=== PATIENT | male | born 1950 | race Caucasian/White ===

== ENCOUNTER → 2017-06-30 | Outpatient (CLI) | payer OTHER | LOC: CIMAGING 09:23 | PROVIDERS: ATTEND Nurse Practitioner | DX: R91.1 Solitary pulmonary nodule (principal); K44.9 Diaphragmatic hernia without obstruction or gangrene; E11.9 Type 2 diabetes mellitus without complications; E78.2 Mixed hyperlipidemia | CPT/HCPCS: 71250-PO ==

== ENCOUNTER 2018-01-26 17:32 | Inpatient (IN) | payer OTHER ==
--- NOTE | 2018-01-26 17:59 | CPEKG ---
Heart Rate: 71 RR Interval: 845 QRSD Interval: 170 QT Interval: 488 QTC Interval: 531 QRS [place]: -120 T Wave [place]: 234 EKG Severity - ABNORMAL ECG - EKG Impression: ATRIAL FIBRILLATION EKG Impression: RIGHT BUNDLE BRANCH BLOCK Electronically Signed By: Richard Espino 26-Jan-2018 18:19:00
[2018-01-26] MEDS ORDERED: FUROSEMIDE 40 MG/4 ML VIAL IVP ONE (18:13)
--- NOTE | 2018-01-26 18:18 | EDPHY ---
H & P Stated Complaint: sob Time Seen by Provider: 01/26/18 17:57 HPI/ROS: CHIEF COMPLAINT: Shortness of breath HISTORY OF PRESENT ILLNESS: The patient is a 67-year-old man who was recently admitted at [facility] for newly discovered atrial fibrillation and CHF and pulmonary hypertension. He was discharged 3 days ago now on Eliquis, amiodarone , Lasix, metoprolol and potassium. The patient states that his breathing has gotten progressively worse since discharged. Here in the room he was 89% on room air. He does wear oxygen at night but not during the day. He denies pain. He has mild leg swelling bilaterally. He has been faithful in taking his knee medications. No fevers. No cough. No history of COPD. He has an appointment with Dr. Henderson on . REVIEW OF SYSTEMS: Constitutional: denies: chills, fever, recent illness, recent injury EENTM: denies: blurred vision, double vision, nose congestion Respiratory: See HPI Cardiac: denies: chest pain, irregular heart rate, lightheadedness, palpitations Gastrointestinal/Abdominal: denies: abdominal pain, diarrhea, nausea, vomiting, blood streaked stools Genitourinary: denies: dysuria, frequency, hematuria, pain Musculoskeletal: denies: joint pain, muscle pain Skin: denies: lesions, rash, jaundice, bruising Neurological: denies: headache, numbness, paresthesia, tingling, dizziness, weakness Hematologic/Lymphatic: denies: blood clots, easy bleeding, easy bruising Immunologic/allergic: denies: HIV/AIDS, transplant EXAM: GENERAL: Well-appearing, obese and in no acute distress. HEAD: Atraumatic, normocephalic. EYES: Pupils equal round and reactive to light, extraocular movements intact, sclera anicteric, conjunctiva are normal. ENT: TMs normal, nares patent, oropharynx clear without exudates. Moist mucous membranes. NECK: Normal range of motion, supple without lymphadenopathy or JVD. LUNGS: Distant Breath sounds but clear to auscultation bilaterally and equal. No wheezes rales or rhonchi. HEART: Regular rate and rhythm without murmurs, rubs or gallops. ABDOMEN: Soft, nontender, normoactive bowel sounds. No guarding, no rebound. No masses appreciated. BACK: No CVA tenderness, no spinal tenderness, step-offs or deformities EXTREMITIES: Normal range of motion, no pitting or edema. No clubbing or cyanosis. NEUROLOGICAL: Cranial nerves II through XII grossly intact. Normal speech, normal gait. 5/5 strength, normal movement in all extremities, normal sensation PSYCH: Normal mood, normal affect. SKIN: Warm, dry, normal turgor, no visible rashes or lesions. Source: Patient Exam Limitations: No limitations - Personal History Current Tetanus/Diphtheria Vaccine: Yes Current Tetanus Diphtheria and Acellular Pertussis (TDAP): Yes - Medical/Surgical History Hx Asthma: No Hx Chronic Respiratory Disease: No Hx Diabetes: No Hx Cardiac Disease: Yes Hx Renal Disease: No Hx Cirrhosis: No Hx Alcoholism: No Hx HIV/AIDS: No Hx Splenectomy or Spleen Trauma: No Other PMH: history of kidney stones,Depression, Colon CA, hernia. B knees, low testosterone for which he is receiving seed implantation, heart failure, afib - Social History Smoking Status: Never smoked Constitutional: Initial Vital Signs Temperature (C) 36.4 C 01/26/18 17:39 Heart Rate 70 01/26/18 17:39 Respiratory Rate 16 01/26/18 17:39 Blood Pressure 109/77 01/26/18 17:39 O2 Sat (%) 93 01/26/18 17:39 O2 Delivery Mode Nasal Cannula O2 (L/minute) 2 Allergies/Adverse Reactions: Penicillins Allergy (Verified 01/26/18 17:36) Rash Home Medications: Medication Instructions Recorded Amiodarone HCl [Pacerone (*)] 400 mg PO DAILY 01/26/18 Apixaban [Eliquis] 5 mg PO BID 01/26/18 Aspirin [Aspirin 81mg (*)] 81 mg PO DAILY 01/26/18 Atorvastatin Calcium [Lipitor 40 40 mg PO HS 01/26/18 mg (*)] Calcium Carbonate/Vitamin D3 1 each PO DAILY 01/26/18 [Calcium 600 + D3 Softgel] Esomeprazole Mag Trihydrate 40 mg PO DAILY 01/26/18 [Nexium] FLUoxetine [Prozac 10 MG (*)] 10 mg PO DAILY 01/26/18 Furosemide [Lasix 20 MG (*)] 20 mg PO DAILY 01/26/18 Metoprolol Tartrate [Lopressor 25 37.5 mg PO BID 01/26/18 mg (*)] [place]-3/Dha/Epa/Fish Oil [[place] 3 1 each PO DAILY 01/26/18 500 Softgel] Ondansetron [Ondansetron Odt] 4 mg PO Q8 01/26/18 Potassium Chloride 20 meq PO DAILY 01/26/18 Ranitidine HCl [Zantac] 300 mg PO BID 01/26/18 Tamsulosin HCl [Flomax 0.4 MG (*)] 0.4 mg PO DAILY 01/26/18 buPROPion [Wellbutrin 75mg (*)] 75 mg PO DAILY 01/26/18 Medical Decision Making - Diagnostics EKG Interpretation: An EKG obtained and was read and documented in trace view. Please see trace view for full reading and report. Atrial fibrillation, right bundle branch block Imaging Results: Imaging Impressions Chest X-Ray 01/26/18 18:12 Impression: 1. Decreased inspiration with compressive changes at the lung bases. Consider mild dependent edema right side greater than left versus early pneumonia. 2. Mild cardiomegaly with prominence of left ventricle. 3. Accentuation of the anterior kyphosis lower thoracic spine with associated degenerative disk disease stable in appearance. Imaging: Discussed imaging studies w/ forensic anthropologist Radiologist ED Course/Re-evaluation: 7:30 p.m. I discussed the case with Dr. Cherri Hopson who will admit. Patient is hypoxic and his pulmonary drawn chest x-ray. I have given him 40 of Lasix. He has not yet had much urine output. His repeat blood pressures improved to 140/80. Differential Diagnosis: Partial list of the Differential diagnosis considered include but were not limited to; CHF exacerbation, pneumonia and although unlikely based on the history and physical exam, I also considered acute coronary disease, PE, dissection, pneumonia. - Data Points Laboratory Results: Laboratory Results 01/26/18 18:05 01/26/18 18:05 01/26/18 01/26/18 01/26/18 18:05 18:05 18:05 WBC 11.19 10^3/uL H 10^3/uL (3.80-9.50) RBC 4.82 10^6/uL 10^6/uL (4.40-6.38) Hgb 11.9 g/dL L g/dL (13.7-17.5) Hct 39.2 % L % (40.0-51.0) MCV 81.3 fL L fL (81.5-99.8) MCH 24.7 pg L pg (27.9-34.1) MCHC 30.4 g/dL L g/dL (32.4-36.7) RDW 18.0 % H % (11.5-15.2) Plt Count 281 10^3/uL 10^3/uL (150-400) MPV 12.5 fL H fL (8.7-11.7) Neut % (Auto) 79.2 % H % (39.3-74.2) Lymph % (Auto) 8.4 % L % (15.0-45.0) [place] % (Auto) 11.1 % % (4.5-13.0) Eos % (Auto) 0.4 % L % (0.6-7.6) Baso % (Auto) 0.4 % % (0.3-1.7) Nucleat RBC Rel Count 0.0 % % (0.0-0.2) Absolute Neuts (auto) 8.87 10^3/uL H 10^3/uL (1.70-6.50) Absolute Lymphs (auto) 0.94 10^3/uL L 10^3/uL (1.00-3.00) Absolute Monos (auto) 1.24 10^3/uL H 10^3/uL (0.30-0.80) Absolute Eos (auto) 0.04 10^3/uL 10^3/uL (0.03-0.40) Absolute Basos (auto) 0.04 10^3/uL 10^3/uL (0.02-0.10) Absolute Nucleated RBC 0.00 10^3/uL 10^3/uL (0-0.01) Immature Gran % 0.5 % % (0.0-1.1) Immature Gran # 0.06 10^3/uL 10^3/uL (0.00-0.10) PT 23.5 SEC H SEC (12.0-15.0) INR 2.09 H (0.83-1.16) APTT 35.4 SEC SEC (23.0-38.0) Sodium 128 mEq/L L mEq/L (135-145) Potassium 5.5 mEq/L H mEq/L (3.5-5.2) Chloride 95 mEq/L L mEq/L (97-110) Carbon Dioxide 20 mEq/l L mEq/l (22-31) Anion Gap 13 mEq/L mEq/L (8-16) BUN 43 mg/dL H mg/dL (7-23) Creatinine 1.7 mg/dL H mg/dL (0.7-1.3) Estimated GFR 40 Glucose 107 mg/dL H mg/dL (70-100) Calcium 8.9 mg/dL mg/dL (8.5-10.4) Troponin I 0.020 ng/mL ng/mL (0.000-0.034) NT-Pro-B Natriuret Pep 8390 pg/mL H pg/mL (0-125) Medications Given: Discontinued Medications Furosemide (Lasix Injection) 40 mg IVP EDNOW ONE Stop: 01/26/18 18:14 Last Admin: 01/26/18 18:17 Dose: 40 mg Departure - Departure Disposition: [facility] Inpatient Acute Clinical Impression: Congestive heart failure Qualifiers: Heart failure type: unspecified Heart failure chronicity: acute on chronic Qualified Code(s): I50.9 - Heart failure, unspecified Condition: Fair
[2018-01-26 18:20] LABS: PLATELET COUNT 281 10^3/uL (150-400)
[2018-01-26 18:28] LABS: INR 2.09 (0.83-1.16); PROTIME(PATIENT) 23.5 SEC (12.0-15.0)
[2018-01-26] MEDS ORDERED: ONDANSETRON 4 MG/2 ML VIAL IVP PRN (22:59)
[2018-01-26] MEDS ORDERED: ACETAMINOPHEN 325 MG TAB PO PRN (22:59)
--- NOTE | 2018-01-26 23:43 | GHP ---
[f rep st] HISTORY AND PHYSICAL DATE OF ADMISSION: 01/26/2018 CHIEF COMPLAINT: Shortness of breath. HISTORY: The patient is a 67-year-old male, just discharged 3 days ago from [facility]. He pres ented there with shortness of breath. His primary care doctor called 911 when he presented to their office, and he looked quite ill, and the ambulance brought him to [facility], although his prefer [facility] is [facility]. While at [facility], he had both an echocardiogram and a card iac catheterization. Formal reports are unknown, but the patient states he was diagnosed with new-on set atrial fibrillation, congestive heart failure, and pulmonary hypertension. He has an appointment with Dr. Farias, scheduled for later this week. When he left the hospital, he states he did not really feel that well, was still short of breath, and since he has left the hospital, it has worsened. He has had ongoing shortness of breath with severe PND and orthopnea. He has awoken from sleep acutely short of breath and has to go sit up in a chair in order to breathe. His leg edema has worsened, and his weight is up 3 pounds. He denies any chest pain. [facility]. PAST MEDICAL HISTORY: 1. Colon cancer, status post resection. 2. Low testosterone. 3. Congestive heart failure. 4. Atrial fibrillation. 5. Obstructive sleep apnea, on BiPAP. PAST SURGICAL HISTORY: Total knee arthroplasty. MEDICATIONS: Please see computer record for full detailed list. ALLERGIES: Penicillin. SOCIAL HISTORY: No smoking. Occasional alcohol. Lives with his . REVIEW OF SYSTEMS: Complete review of systems obtained. Review of systems negative regarding consti tutional, HEENT, GI, pulmonary, cardiovascular, , hematology, skin, musculoskeletal, endocrine, psy ch, except for positives and negatives as under HPI. FAMILY HISTORY: Reviewed, noncontributory to presenting complaint. PHYSICAL EXAMINATION: GENERAL: Well-developed, well-nourished male, in no acute distress. VITAL SI GNS: Temperature is 36.4, pulse 68, blood pressure 96/74, saturating 87% on room air. HEENT: Eyes, normal conjunctivae, pupils react to light. ENT, normal ears and nose. Hearing intact. Normal arturo th. Oropharynx moist. NECK: Trachea midline. No thyromegaly. CHEST: Normal respiratory effort. Lungs with bibasilar rales, no wheeze. CARDIOVASCULAR: Regular rate and rhythm. No murmur. 1+ lo wer extremity edema. ABDOMEN: Soft, nontender. No hepatosplenomegaly. SKIN: Warm, dry, intact. No rash. MUSCULOSKELETAL: No cyanosis or clubbing. Strength 5/5 upper and lower extremities. NEUR O: Cranial nerves intact. Normal sensation to light touch. PSYCH: Alert and oriented x3. Normal mood and affect. Normal judgment. Normal memory. LABORATORY DATA: White count 11.19, hematocrit 39.2, platelets 281. Sodium 128, potassium 5.5, chlo ride 95, bicarb 20, BUN 43, creatinine 1.7, glucose 107. Troponins negative. BNP is 8390. INR is 2 .09. Chest x-ray shows possible bilateral congestive heart failure. EKG viewed by me; my personal i nterpretation is atrial fibrillation, right bundle branch block, diffuse T-wave flattening. ASSESSMENT/PLAN: 1. Congestive heart failure exacerbation. Recent workup at [facility] included echocar diogram and cardiac catheterization. Will request records. He has received a dose of IV Lasix in th e emergency room. Will recheck a basic metabolic panel in the morning to monitor for effect of that initial Lasix dose and ensure that his acute renal failure is improving, although I do suspect acute renal failure is cardiorenal in origin, which may improve with diuresis. 2. Acute renal failure. Baseline creatinine 1.0. Again, I suspect cardiorenal, and clinically he i s clearly volume-overloaded, so diuresis with close monitoring of creatinine. 3. Hyperkalemia. Will hold additional potassium supplement. 4. Atrial fibrillation. Continue amiodarone and Eliquis. 5. Obstructive sleep apnea. Continue BiPAP. CODE STATUS: Full. ADMISSION STATUS: Will admit to observation. Reevaluate tomorrow regarding ongoing need for hospita lization. DEEP VENOUS THROMBOSIS PROPHYLAXIS: He is chronically on Eliquis, which will be continued. /[id number]/MODL
[2018-01-27] MEDS: FAMOTIDINE 20 MG TAB PO SCH ×2 (08:42→21:06)
[2018-01-27] MEDS: PANTOPRAZOLE SODIUM 40 MG TAB PO SCH (08:42)
[2018-01-27] MEDS: AMIODARONE HCL 200 MG TAB PO SCH (08:44)
[2018-01-27] MEDS: APIXABAN 5 MG TAB PO SCH ×2 (08:45→21:06)
[2018-01-27] MEDS: ASPIRIN 81 MG CHEWABLE TAB PO SCH (08:45)
[2018-01-27] MEDS ORDERED: METOPROLOL TARTRATE 25 MG TAB PO SCH (09:00)
--- NOTE | 2018-01-27 09:32 | HOSPPROG ---
Hospitalist Progress Note Assessment/Plan: DIAGNOSES: -acute congestive heart failure, mechanism unknown at this time -acute renal failure, probably hemodynamic, further information needed for definitive diagnosis -hyperkalemia presumably due to combination of acute renal failure and potassium supplements given with his Lasix -recently diagnosed atrial fibrillation, currently rate controlled on metoprolol , on Eliquis, recently started on amiodarone -known pulmonary hypertension of presumed chronic duration -chronic sleep apnea on CPAP at home -history of Beryllium exposure in the work place, had a CT scan of chest done at [facility] last week -microcytosis and mild anemia suggesting iron deficiency This patient with history of known sleep apnea but no known history of any heart disease presented to [facility] last week with congestive heart failure. He was treated there for 6 days, discharged home but comes here 3 days later with worsening heart failure and pulmonary edema. His evaluation there included echocardiogram, CT and scan of chest, and coronary angiography. The only information we know about from those tests is through the family who recalls that he was found to have pulmonary hypertension. We are still waiting for records from [facility] regarding the other tests. He does not recall being told that there was significant coronary problem. We certainly will need to get information to determine whether he might have Berylliosis or other chronic lung disease, coronary disease, systolic or diastolic disease or valvular disease. His renal function is unchanged overnight; it sounds like he had a creatinine of 1.0 to start with a [facility] but a possibly rising creatinine while there. PLANS: -have made another records request from [facility] -continue diuresis here -for now will continue his amiodarone, metoprolol, Eliquis -will stop his potassium supplements now -follow renal function closely -I will order bedside spirometry here to assess for any obstructive or restrictive abnormalities; he may need formal PFTs in pulmonology clinic if there is any question, and the CT scan results from [facility] will be helpful in this regard as well -for his microcytosis I will order iron studies and begin iron replacement which will be important for his heart failure; he may also need GI evaluation at some point if he is iron deficient SUBJECTIVE: Feels better than yesterday still some dyspnea with minimal exertion Still not great appetite but eating a little bit better No chest pain or fever symptoms OBJECTIVE Vitals reviewed: Stable blood pressure pulse and respirations no fever Mapping Pilot, my review: Rate controlled AFib I&O: No significant data recorded as of yet Exam: alert oriented skin warm dry color ok resps not labored Jugular venous distention is noted lungs minimal bibasilar rales at this time heart regular abd soft nondistended nontender, bowel sounds present limbs warm, slight by pedal edema still present iv site ok Laboratory data: Renal function unchanged at 1.7 overnight, sodium in better range Objective: Vital Signs Temp Pulse Resp BP Pulse Ox 36.7 C 65 16 112/79 97 01/27/18 08:00 01/27/18 08:00 01/27/18 08:00 01/27/18 08:00 01/27/18 08:00 Laboratory Results 01/27/18 03:16 01/26/18 01/27/18 01/28/18 06:59 06:59 06:59 Intake Total 0 Output Total 400 Balance 0 -400 PT 23.5 SEC (12.0-15.0) H 01/26/18 18:05 INR 2.09 (0.83-1.16) H 01/26/18 18:05 - Time Spent With Patient Time Spent with Patient: greater than 35 minutes Time Spent with Patient: Greater than 35 minutes spent on this patients care, greater than 50% of time spent counseling, educating, and coordinating care regarding the above mentioned plan. ICD10 Worksheet Patient Problems: Problems Problem Status Onset Congestive heart failure Acute Knee arthropathy Acute
[2018-01-27] MEDS ORDERED: FUROSEMIDE 40 MG/4 ML VIAL IVP ONE (09:36)
[2018-01-27] MEDS: SODIUM FERRIC GLUCONAT/SUCROSE 125 MG in NS 100 ML IV SCH (10:20)
--- NOTE | 2018-01-27 13:16 | PDMN ---
Medical Necessity Medical necessity: M190 heart failure: A-2 days: acute CHF , ARF, hyperkalemia , dyspnea, recent Dg. A-Fib., known pulm htn., Chronic FREDDY on CPAP at home, hx Beryllium exposure , microcytosis and mild anemia, Pt currently with worsening heart failure and pulm edema. cont IV diuresis, cont. monitoring and tx > 2 midnights. change of status to INPT 01/27/18 @ 11:19
--- NOTE | 2018-01-27 14:30 | ASMTCMCOM ---
CM Note CM Note Notes: Patient admitted for management of his CHF, which was recently treated at [facility] without good result. He lives with his and is normally independent. Once diuresis has helped stabilize him, I anticipate that he will discharge without needs. Case Management available if any arise. Current CM discharge plan: home independent Date Signed: 01/27/2018 02:30 PM Electronically Signed By:Milka Hendrix RN
[2018-01-27] MEDS: buPROPion 75 MG TAB PO SCH ×2 (16:00→17:46)
[2018-01-27] MEDS: FLUoxetine 10 MG CAP PO SCH ×2 (16:00→17:46)
--- NOTE | 2018-01-27 16:12 | GCON ---
[f rep st] CONSULTATION CARDIOVASCULAR CONSULTATION HISTORY OF PRESENT ILLNESS: The patient was admitted to the hospital yesterday with shortness of remi ath. He was very well on 12/30. They celebrated their anniversary up at [place]. They were up there w alking around, felt absolutely fine, and according to his , he had no limitations. Then over the last several weeks, he has developed more and more shortness of breath, and he has gained as much as 11 pounds in weight. He never had real edema, but he felt like he did have extra water in his legs. He has had 2 weeks of increasing shortness of breath. The patient has developed a syndrome where h e is short of breath going up any stairs. He has a hard time going up stairs. When he walks around, he feels short of breath and he does not have his usual energy. He was admitted to [facility] for a 6-day hospital stay 10 days ago now. He was there for 6 days. He went home, and now, he has been readmitted for worsening shortness of br eath to [facility]. He was admitted to this hospital on Thursday night and today is W . He is still short of breath. He wakes up all night long. He is sitting in a chair, and h e still cannot get rest at night because of his shortness of breath. He has not had chest pain, ches t tightness, jaw pain. He has previously no orthopnea, PND, or dyspnea on exertion. He is having all of that now. He has m ild peripheral edema, but it is not significant according to him. His weight was 266 at the highest. It is down to 254 when he was discharged, and it is 261 today. He does not have palpitations, lightheadedness, dizziness. He has been told at the hospital that he has atrial fibrillation which he has never had before and he has no symptoms with that. He has no history of rheumatic disease, claudication, cerebrovascular disease. No hemoptysis, tuberc ulosis, peripheral edema. No history of atrial arrhythmias before this, atrial fibrillation before t his. No history of ventricular fibrillation. No dizziness, lightheadedness. No trauma to the head, neck, or chest. No dysuria, frequency, pyuria. No rashes, arthralgias, chills, or other complaints. He has been taking his medications since discharge and not been missing any doses. He is on a blood thinner for his atrial fibrillation. CARDIAC RISK FACTORS: Positive for obesity. According to him, negative for diabetes mellitus, hypertension, hyperlipidemia, smoking, hyperuricemi a, family history of premature know coronary disease. He has had a coronary angiogram last week at [facility], and it was negative for any obstructive coronary disease. Echocardiogram at that time told him his heart was enlarged and weak. He was told he has atrial fibrillation and to stay on full anticoagulation. The patient has had obstructive sleep apnea for years, and he uses a BiPAP machine and is having good luck with that and gets it followed up and that is working well for him. FAMILY HISTORY: None of premature coronary artery disease. No history of unexplained sudden a t a young age. SURGICAL HISTORY: Status post bilateral knee replacements, status post surgery for colon cancer in . ALLERGIES: Penicillin. MEDICATIONS: On the reconciliation sheet. In an effort to not increase errors, we are referring people to that list. SOCIAL HISTORY: He was born in [place], [place], but he grew up in [place], [place]. He worked at [employer] until 2002, and there, he was exposed to the toxins that pervaded the place. REVIEW OF SYSTEMS: A 12-point negative except as noted above. For his cancer, he never received radiation or chemotherapy. He had surgical procedure by Dr. Markus armstrong and he is cancer-free. PHYSICAL EXAMINATION: VITAL SIGNS: Blood pressure is 105/75, heart rate 57 irregularly irregular, a febrile. He is saturating 87% on room air and then 92% today on oxygen. HEENT: Pupils equal and re active. Mucous membranes of the mouth moist. NECK: Supple. CARDIOVASCULAR: S1, S2. No S3, S4. No rubs. He has a soft systolic murmur at left sternal border. He does not have a murmur of aortic stenosis. PULMONARY: Decreased breath sounds bilaterally. He has no rales, wheezing, or dullness. ABDOMEN: Soft, nontender, without masses. CVA: No tenderness. EXTREMITIES: No significant edema . He has trace edema in the lower extremities. No signs of inflammation. Homans' sign negative. N o calf tenderness. PSYCHIATRIC: No obvious anxiety or depression. NEUROLOGIC: 2-12 grossly normal . Motor and sensory intact. LABORATORY: Sodium 131, potassium 4.9, chloride 98, CO2 of 21, BUN 42, creatinine 1.7 and it was 1.7 when he came in. His iron is low at 21, his ferritin is 35.5. Troponin was negative, BNP 8390. Wh ite count 11.19, hematocrit 39, platelets 281. INR was 2.09. Chest x-ray shows decreased inspiration with compressive changes at the lung bases. Mild dependent e saeed on the right side greater than the left. Mild cardiomegaly, and then some orthopedic issues. Electrocardiogram, atrial fibrillation with right bundle branch block and diffuse nonspecific ST-T ch anges. He is in atrial fibrillation today. BNP was elevated, 8000. Studies from [facility] have shown that he had a coronary angiogram. Right heart hemodynamic s showed a mean right atrial pressure 15, right ventricular pressure 64/6, LV pressure 89/8, end-jacob tolic pressure of 18, wedge pressure 22 mean, pulmonary artery pressure 54/27 with a mean pulmonary a rtery pressure of 36. Pulmonary artery pressure was 50/24 with a mean of 35 on another study. Oxyge n saturation was 92.3 and pulmonary artery saturation was 55.0. Cardiac output by Oswald was 4.48, the rmodilution was 6.07 L/min. He had widely patent normal coronary arteries. Essentially, left main c ircumflex and LAD were angiographically widely patent and normal. Right coronary is large caliber do minant vessel, angiographically widely patent and normal flow. Patient had a CT of the chest. There was no evidence of pulmonary embolism. Moderate symmetric bila teral pleural effusion. Interlobar septal thickening. Large hiatal hernia. Small mediastinal lymph nodes. Marked thoracic kyphosis. Echocardiographic study done there showed LV is severely dilated, ejection fraction 20%, mild concent silvana left ventricular hypertrophy, severe global hypokinesis of the left ventricle. Right ventricular cavity size is enlarged, moderately reduced RV systolic function. Left atrium is severely enlarged. Moderate mitral regurgitation. Mild to moderate tricuspid regurgitation. Pulmonary artery pressure estimation was 468 mmHg. The IVC was dilated at greater than 2.1 cm. Less than 50% respiratory marty iance. RA pressure is significantly elevated at 15 mmHg. ASSESSMENT: 1. Dilated cardiomyopathy. 2. Heart failure with reduced ejection fraction, acute on chronic. 3. Shortness of breath. 4. Sleep apnea. 5. Chronic bilevel positive airway pressure use. 6. Marked obesity. 7. Atrial fibrillation. 8. Full anticoagulation. 9. History of colon cancer. PLAN: The patient is currently having ongoing heart failure. We will plan to increase his medicatio ns slowly and titrate him carefully. We will put him on metoprolol succinate from metoprolol tartrat e as all the studies were done with metoprolol succinate, carvedilol, or bisoprolol, proving the bene fit of beta blockers in dilated cardiomyopathy. He is on IV diuresis here, and he has a small bump i n his creatinine. I would resume or start his ИВАН inhibitor if that has not been done. It may have been the medicine he was taking at home and I do not know that yet and may have been held because his creatinine bumped to 1.7. I think at this point in time, he needs an ИВАН inhibitor, and I would sta rt that slowly with something like Vasotec 2.5 mg at hour of sleep tonight if that is amenable to the hospitalist. He will slowly benefit from titrating his medications, and once we get him on a beta-fortino and ИВАН inhibitor and his furosemide, I would add spironolactone 25 mg a day, and we can do that in 2 days if we get him on the proper beta fortino and the ИВАН inhibitor now. Will have to watch his renal function, but presumably, it will improve with diuresis. There is no reason to think he has coronary disease as an etiology for his dilated cardiomyopathy bec ause his catheterization is normal. There is nothing that would make me think he has stressed induce d cardiomyopathy. He could have a viral cardiomyopathy. I doubt that he has HIV infection, and I do not think he has anything to suggest Lyme disease. There is no hypertrophic part of this feature to suggest hypertrophic cardiomyopathy or other issues like left ventricular noncompaction at this poin t in time. He does not drink significant amounts of alcohol and I do quite believe him, so I do not think alcohol is causing problems. Sarcoid might be an issue for him, but I do not think we need to go there at this point in time, and I do not think autoimmune diseases are playing a role. I could b e most hopeful that he has a tachycardia-mediated cardiomyopathy from atrial fibrillation because he had no idea he was in it until he was brought to [facility], and I am hoping that maybe if his heart rate stays low and he does well, if it is a tachycardia-mediated cardiomyopathy, he will improve significantly over the next 5 months. Obstructive sleep apnea by itself can cause dilated cardiomyopathy and that may be playing a role her e. Those patients can get dilated cardiomyopathies even if they are quite well treated by the Sleep [facility] team and service. He has done a good job of staying with his machine, and so I do not really th ink that is an issue for him. At this point in time, he has been evaluated quite carefully and quite thoroughly by our friends at [facility]. I think that he is improving and we can titrate his medications in carefully and make sure he feels much better and stronger. We will follow him with you. /[id number]/MODL
[2018-01-27] MEDS: TAMSULOSIN HCL 0.4 MG CAP PO SCH (17:46)
[2018-01-27] MEDS: METOPROLOL SUCCINATE XR 50 MG TAB PO SCH (21:06)
[2018-01-27] MEDS: ATORVASTATIN CALCIUM 40 MG TAB PO SCH (21:07)
[2018-01-28 04:10] LABS: PLATELET COUNT 219 10^3/uL (150-400)
[2018-01-28] MEDS: FAMOTIDINE 20 MG TAB PO SCH ×2 (09:34→20:20)
[2018-01-28] MEDS: PANTOPRAZOLE SODIUM 40 MG TAB PO SCH (09:34)
[2018-01-28] MEDS: APIXABAN 5 MG TAB PO SCH ×2 (09:54→20:20)
[2018-01-28] MEDS: TAMSULOSIN HCL 0.4 MG CAP PO SCH (09:54)
[2018-01-28] MEDS: ASPIRIN 81 MG CHEWABLE TAB PO SCH (09:54)
[2018-01-28] MEDS: FUROSEMIDE 40 MG TAB PO SCH (09:54)
[2018-01-28] MEDS: buPROPion 75 MG TAB PO SCH (09:54)
[2018-01-28] MEDS: AMIODARONE HCL 200 MG TAB PO SCH (09:54)
[2018-01-28] MEDS: FLUoxetine 10 MG CAP PO SCH (09:55)
[2018-01-28] MEDS: METOPROLOL SUCCINATE XR 50 MG TAB PO SCH (09:55)
[2018-01-28] MEDS: SODIUM FERRIC GLUCONAT/SUCROSE 125 MG in NS 100 ML IV SCH (09:55)
[2018-01-28] MEDS ORDERED: LISINOPRIL 2.5 MG TAB PO SCH (15:00)
--- NOTE | 2018-01-28 15:03 | SOAPPROG ---
RONIT Progress Note Assessment/Plan: Assessment: 1. Dilated cardiomyopathy 2. Heart failure with reduced ejection fraction 3. Sleep apnea 4. Shortness of breath 5. Obesity 6. Atrial fibrillation 7. Full anticoagulation He is doing better today. He is switch to p.o. Lasix. We are starting his phase attack at 2.5 mg today now. His eye creatinine has stabilized. He is tolerating his beta-fortino. The hospitalist is going to take look abdomen see about increasing his beta-fortino today which I think is a good idea is heart rate is high enough take give us room to improve his on his beta- blockade. The patient is asked me about a life vest because it was brought up and he has nonsustained this short episodes of V T. There is no evidence that life vest in his situation would be beneficial and so I would not recommend that and they are not interested 1 because of already been told insurance will not pay for it. So that is not going to happen. Whom we talked about an ICD once he meets the time criteria to see if he would benefit from an ICD but that is not something is going to happen right now. I had a long discussion with [facility] in [facility] and we reviewed that again today he does want to be a no code and so I have talked to the hospitalist and the nursing staff about that and put the order in. I think he is doing better I would keep him in the hospital for another 24 hr and watched closely. All his questions have been answered All his 's questions have been answered. I will plan to follow up as an outpatient. Plan: 01/28/18 15:04 Subjective: He is feeling better today. His feels like his color is better. He feels like he has more strength. He is not having fever chills or cough right now. He has been walking around. He is taking his medications He is not having any trouble with medication He has no nausea vomiting diarrhea constipation He is not having chest pain jaw pain arm pain Objective: Vital Signs Temp Pulse Resp BP Pulse Ox 36.4 C 68 20 101/63 87 L 01/28/18 11:54 01/28/18 11:54 01/28/18 11:54 01/28/18 11:54 01/28/18 11:54 Laboratory Results 01/28/18 03:08 01/28/18 03:08 01/27/18 01/28/18 01/29/18 05:59 05:59 05:59 Intake Total 0 1740 Output Total 1895 600 Balance 0 -155 -600 PT 23.5 SEC (12.0-15.0) H 01/26/18 18:05 INR 2.09 (0.83-1.16) H 01/26/18 18:05 Selected Entries 01/28/18 01/28/18 09:41 11:54 Heart Rate 64 68 Blood Pressure 106/65 101/63 Laboratory Tests 01/26/18 01/26/18 01/27/18 18:05 18:05 03:16 Hct 39.2 L Plt Count 281 BUN 43 H 42 H Creatinine 1.7 H 1.7 H Iron TIBC Iron Saturation Ferritin NT-Pro-B Natriuret Pep 8390 H 01/27/18 01/28/18 01/28/18 03:16 03:08 03:08 Hct 36.1 L Plt Count 219 D BUN 34 H Creatinine 1.5 H Iron 21.0 L TIBC 389 Iron Saturation 5 L Ferritin 35.2 NT-Pro-B Natriuret Pep Physical Exam - Physical Exam General Appearance: alert Neck: supple Respiratory: lungs clear Cardiac/Chest: systolic murmur, No edema Abdomen: normal bowel sounds, non-tender, soft, No organomegaly Back: No CVA tenderness Extremities: non-tender, No calf tenderness Neuro/Psych: alert, normal mood/affect, oriented x 3 ICD10 Worksheet Patient Problems: Problems Problem Status Onset Congestive heart failure Acute Knee arthropathy Acute
[2018-01-28] MEDS ORDERED: LISINOPRIL 2.5 MG TAB PO ONE (18:27)
--- NOTE | 2018-01-28 18:33 | HOSPPROG ---
Hospitalist Progress Note Assessment/Plan: Assessment: 67-year-old male presents with acute systolic CHF exacerbation in the setting of atrial fibrillation with acute rapid ventricular response Plan: 1. Acute systolic congestive heart failure exacerbation. Ejection fraction 20% as well as moderately reduced right ventricular function, characterized as nonischemic with recent normal cardiac catheterization, evidenced by increased pulmonary vasculature on chest x-ray, personally interpreted, BNP of a 1400 -discussed with Dr. Sonido Olsen, he and I both agree that the patient is nearing euvolemic a and should safely be transition to oral Lasix at this time and gauge whether the patient is able to maintain a net even status to slightly net negative -net -1 kg length of stay -we should also optimize his medical management by increasing his ИВАН-inhibitor , and I will give him an additional 2.5 this evening, so he has received a total of 5 mg today, gauge effect -continue metoprolol succinate at current dosing -Aldactone will likely be added in the outpatient setting depending on renal function and potassium level 2. Atrial fibrillation with acute rapid ventricular response. His suspected that the patient's cardiomyopathy may have been secondary to uncontrolled AFib and may have been rate related, but the patient's rate is currently well controlled in the 70-80 range -continue on beta-fortino, continue on Eliquis 3. Acute kidney injury. Evidenced by creatinine of 1.7 with most recent baseline at [facility] demonstrating 1.0, most likely secondary to renal hypoperfusion 2/2 poor cardiac output secondary to congestive heart failure exacerbation -creatinine level improving with ongoing diuresis -continue monitor renal function as we transition to oral Lasix 4. Acute hypo natremia. Most likely secondary to renal hypoperfusion secondary to poor cardiac output, continue monitor serum sodium level with diuresis 5. Chronic obstructive sleep apnea. Continue on CPAP 6. Iron deficient anemia. Chronic, microcytosis, iron deficient on labs, receiving IV iron 7. History of Beryllium exposure. Unclear whether this has played a role in the patient's increased pulmonary markings, recommend high-resolution chest CT after patient's volume status has been characterized as euvolemic and recommend outpatient pulmonary follow-up 8. Morbid obesity. BMI 38.8 with increased risk of morbidity and/or mortality and high risk comorbid conditions Diet. Cardiac Prophylaxis. High risk patient, Eliquis Code. Do not resuscitate, per conversation between Dr. lOsen and patient Disposition. Anticipated discharge uncertain, potentially as early as 01/29, pending resolution of above High-level medical complexity, with high risk of worsening morbidity and/or mortality secondary to the issues outlined above. Subjective: Patient reports willingness to increase physical activity Objective: Vital Signs Temp Pulse Resp BP Pulse Ox 36.4 C 64 14 100/64 92 01/28/18 15:55 01/28/18 15:55 01/28/18 15:55 01/28/18 15:55 01/28/18 15:55 Laboratory Results 01/28/18 03:08 01/28/18 03:08 01/27/18 01/28/18 01/29/18 05:59 05:59 05:59 Intake Total 0 1740 700 Output Total 1895 600 Balance 0 -155 100 PT 23.5 SEC (12.0-15.0) H 01/26/18 18:05 INR 2.09 (0.83-1.16) H 01/26/18 18:05 - Pending Discharge Pending Discharge Within 48 Hours: Yes Pending Discharge Date: 01/30/18 Pending Discharge Time: 11:00 - Physical Exam Constitutional: no apparent distress, not in pain, chronically ill appearing, No uncomfortable Cardiovascular: irregularly irregular, edema (1+ bilateral lower extremities), No systolic murmur, No tachycardia Respiratory: inspiratory crackles, No reduced air movement, No expiratory wheeze , No bronchial breath sounds, No respiratory distress Gastrointestinal: normoactive bowel sounds, soft, non-tender abdomen, no palpable masses, distension (Mild) Neurologic: AAOx3, sensation intact bilaterally, No weakness Psychiatric: interacting appropriately, not anxious, not encephalopathic, thought process linear ICD10 Worksheet Patient Problems: Problems Problem Status Onset Congestive heart failure Acute Knee arthropathy Acute
[2018-01-28] MEDS: ATORVASTATIN CALCIUM 40 MG TAB PO SCH (20:20)
[2018-01-29] MEDS ORDERED: LISINOPRIL 2.5 MG TAB PO SCH ×2 (08:00→11:00)
[2018-01-29] MEDS: ASPIRIN 81 MG CHEWABLE TAB PO SCH (10:00)
[2018-01-29] MEDS: TAMSULOSIN HCL 0.4 MG CAP PO SCH (10:00)
[2018-01-29] MEDS: buPROPion 75 MG TAB PO SCH (10:01)
[2018-01-29] MEDS: APIXABAN 5 MG TAB PO SCH (10:01)
[2018-01-29] MEDS: PANTOPRAZOLE SODIUM 40 MG TAB PO SCH (10:01)
[2018-01-29] MEDS: FUROSEMIDE 40 MG TAB PO SCH (10:01)
[2018-01-29] MEDS: FAMOTIDINE 20 MG TAB PO SCH (10:02)
[2018-01-29] MEDS: FLUoxetine 10 MG CAP PO SCH (10:02)
[2018-01-29] MEDS: SODIUM FERRIC GLUCONAT/SUCROSE 125 MG in NS 100 ML IV SCH (10:02)
[2018-01-29] MEDS ORDERED: METOPROLOL SUCCINATE XR 25 MG TAB PO SCH (11:00)
--- NOTE | 2018-01-29 11:02 | PDIAF ---
- Diagnosis Diagnosis: Acute systolic CHF exacerbation, Afib w/ RVR Code Status: Do Not Resuscitate - Medication Management Discharge Medications: Medications to Continue on Transfer Apixaban [Eliquis] 5 mg PO BID 01/26/18 [Last Taken 01/26/18 19:00] Esomeprazole Mag Trihydrate [Nexium] 40 mg PO DAILY 01/26/18 [Last Taken 07:00] FLUoxetine [Prozac 10 MG (*)] 10 mg PO DAILY 01/26/18 [Last Taken 01/26/18 10:00 ] [place]-3/Dha/Epa/Fish Oil [[place] 3 500 Softgel] 1 each PO DAILY 01/26/18 [Last Taken 01/26/18 10:00] Ondansetron [Ondansetron Odt] 4 mg PO Q8 01/26/18 [Last Taken Unknown] Ranitidine HCl [Zantac] 300 mg PO BID 01/26/18 [Last Taken 01/26/18 10:00] Tamsulosin HCl [Flomax 0.4 MG (*)] 0.4 mg PO DAILY 01/26/18 [Last Taken 10:00] buPROPion [Wellbutrin 75mg (*)] 75 mg PO DAILY 01/26/18 [Last Taken 01/26/18 10: 00] Amiodarone HCl [Pacerone (*)] 400 mg PO DAILY #60 tab 01/29/18 [Last Taken Unknown] Aspirin [Aspirin 81mg (*)] 81 mg PO DAILY #30 tab.chew 01/29/18 [Last Taken Unknown] Atorvastatin Calcium [Lipitor 40 mg (*)] 40 mg PO HS #30 tab 01/29/18 [Last Taken Unknown] Furosemide [Lasix 40 MG (*)] 40 mg PO DAILY #30 tab 01/29/18 [Last Taken Unknown ] Lisinopril [Zestril 2.5 mg (*)] 2.5 mg PO DAILY #30 tab 01/29/18 [Last Taken Unknown] Metoprolol Succinate Xr [Toprol Xl 25 mg (*)] 25 mg PO DAILY #30 tab 01/29/18 [ Last Taken Unknown] Discharge Medications: Refer to the Discharge Home Medication list for PRN reason. PICC Care - Routine: N/A - Orders Services needed: Home Care, Registered Nurse, Physical Therapy Home Care Face to Face: I certify that this patient was under my care and that I had the required [id number] encounter meeting the encounter requirements on the discharge day. My findings support the fact that the patient is homebound as defined in Home Care Face to Face Continued: [facility] Chapter 7 Medicare Benefits Manual 30.1.1 , The condition of the patient is such that there exists a normal inability to leave home and consequently, leaving home would require a considerable and taxing effort. Isolation Type: None Oxygen: NA, home BiPAP HS Diet Recommendation: cardiac -low fat low salt Weigh Patient: daily ( to keep daily weight log) - Labs/Radiology BMP Date: 02/02/18 HCT/HGB Date: 02/02/18 Call or Fax Lab and Imaging Results to: Dr. Henderson - Follow Up Care Current Providers and Referrals: Mattie Wan NP [Primary Care Provider] - As per Instructions Avery Henderson MD [Medical Doctor] - 3-5 days
[2018-01-29] MEDS: AMIODARONE HCL 200 MG TAB PO SCH (11:10)
[2018-01-29] MEDS: METOPROLOL SUCCINATE XR 50 MG TAB PO SCH (11:19)
[2018-01-29 11:37] VITALS: BP 88/49
--- NOTE | 2018-01-29 12:22 | ASMTLACE ---
ILDAE Length of stay for Answers: 3 days current admission Acuity / Level of Answers: Yes Care: Did the patient have an inpatient admission? Comorbidities - select Answers: Congestive heart failure all that apply Other Notes: Colon cancer, FREDDY # of Emergency department Answers: 1-2 visits in the last 6 months Social determinants Answers: Mental health diagnosis (anxiety, depression, pers onality disorders, etc.) Score: 13 Date Signed: 01/29/2018 12:21 PM Electronically Signed By:DION Calix
--- NOTE | 2018-01-29 12:56 | SOAPPROG ---
SOAP Progress Note Assessment/Plan: Assessment: 1. Dilated cardiomyopathy 2. Heart failure with reduced ejection fraction 3. Sleep apnea 4. Shortness of breath 5. Obesity 6. Atrial fibrillation 7. Full anticoagulation Plan: 01/28/18 15:04 01/29/18 12:57 reviewed meds w he and all ? ans he is tolerating meds but we will lower his doses. he will followm up w me will watch carefully and will decide if he needs a device in a few months. Subjective: he feels well right now he wishes to go home all ? ans Objective: Vital Signs Temp Pulse Resp BP Pulse Ox 36.4 C 56 L 16 88/49 L 92 01/29/18 11:34 01/29/18 11:34 01/29/18 11:34 01/29/18 11:34 01/29/18 11:34 Laboratory Results 01/28/18 03:08 01/29/18 03:09 01/28/18 01/29/18 01/30/18 05:59 05:59 05:59 Intake Total 1740 1000 Output Total 1895 1200 Balance -155 -200 PT 23.5 SEC (12.0-15.0) H 01/26/18 18:05 INR 2.09 (0.83-1.16) H 01/26/18 18:05 Physical Exam - Physical Exam General Appearance: alert Neck: full range of motion Respiratory: chest non-tender, prolonged expiration Cardiac/Chest: systolic murmur Abdomen: non-tender, soft, No organomegaly Extremities: No pedal edema Neuro/Psych: normal mood/affect ICD10 Worksheet Patient Problems: Problems Problem Status Onset Congestive heart failure Acute Knee arthropathy Acute
--- NOTE | 2018-01-29 17:39 | PDDCSUM ---
Discharge Summary Discharge Summary: DISCHARGE SUMMARY FOLLOW-UP ITEMS: Repeat hemoglobin and hematocrit, creatinine BUN and lytes next week DATE OF ADMISSION: 01/26/2018 DATE OF DISCHARGE: 01/29/2018 DISCHARGE DIAGNOSES: 1. Acute systolic congestive heart failure exacerbation 2. Atrial fibrillation with acute rapid ventricular response 3. Acute kidney injury 4. Acute hyponatremia 5. Chronic obstructive sleep apnea 6. Chronic iron deficient anemia 7. Morbid obesity with BMI 30.8 9. History of Brilinta exposure CONSULTATIONS: Cardiology PROCEDURES / IMAGING: Echocardiogram demonstrating ejection fraction 20% with moderately reduced right ventricular function, pulmonary edema and interstitial lung markings on chest x-ray CHIEF COMPLAINT: Acute shortness of breath SUBJECTIVE: Patient is feeling well at time discharge, he feels like his symptoms are resolved, he is mildly fatigued PHYSICAL EXAM ON DISCHARGE: Systolic blood pressure is 100, heart rate is 50-60, afebrile overnight, lungs are clear to auscultation bilaterally, he has trace bilateral lower extremity edema, heart rhythm is irregularly irregular LABS ON DISCHARGE: Creatinine 1.3, BUN 25, potassium 3.9 HOSPITAL COURSE BY PROBLEM: 1. Acute systolic congestive heart failure exacerbation. Evidenced by lower extremity edema, symptomatic shortness of breath, increased pulmonary vasculature on chest x-ray, ejection fraction 20%, BNP 1400, most likely ongoing CHF exacerbation in the setting of suboptimally controlled atrial fibrillation with rapid ventricular response. Patient with cardiac catheterization recently demonstrating no obstructive coronary disease, so this is most likely a nonischemic process which is potentially rate related. Consequently, we control his AFib rate up front with addition of amiodarone, increased his metoprolol from metoprolol tartrate to metoprolol succinate 50 mg , but then reduced it back to 25 mg with heart rates in the 30-50 range. We attempted to up titrate his ИВАН-inhibitor, but this resulted in hypotension with a systolic blood pressure in the 80s prior to discharge, and so we resumed his home dosage of 2.5 mg of lisinopril. The patient will have daily weights monitored at home and his discharge weight is net -1.5 kg from admission. He will be followed up by Dr. Henderson next week. Consideration will be made regarding up titration of ИВАН-inhibitor or addition of Aldactone. 2. Atrial fibrillation with acute rapid ventricular response. As mentioned above, it is hypothesized that the patient's cardiomyopathy may been secondary to uncontrolled AFib and his rate has been well controlled on amiodarone 400 mg daily as well as beta-fortino, adjusted to the metoprolol succinate 25 mg once daily. The patient will be continued on Eliquis for systemic anticoagulation. Consideration will be made in the outpatient setting whether to cardiovert if the patient's CHF worsens despite better rate control. 3. Acute kidney injury. Evidenced by creatinine of 1.7 with his most recent baseline prior to this hospitalization as 1.0. He most likely has renal hypoperfusion the setting of poor cardiac output secondary to congestive heart failure. With diuresis, his creatinine has improved to 1.3 at time of discharge , and he will continue on Lasix 40 mg orally daily with lab recheck next week. 4. Acute hyponatremia. Most likely secondary to renal hypoperfusion in the setting of poor cardiac output, improved with diuresis. 5. Iron deficient anemia. Chronic, with microcytosis and iron deficiency on labs, he received 2 doses of IV iron during this hospitalization at and will have labs rechecked as an outpatient. 6. Chronic obstructive sleep apnea. Patient was continued on CPAP and will continue home. 7. History of Beryllium exposure. Is unclear whether this has played a role in the patient's increased pulmonary markings, and I do recommend high-resolution chest CT after the patient's volume status has been fully characterized as euvolemic in the outpatient setting. DISCHARGE MEDICATIONS: Please see official discharge medication reconciliation sheet in chart , Lasix 40 mg daily, lisinopril 2.5 mg daily, metoprolol succinate 25 mg once daily, amiodarone 400 mg once daily DISCHARGE INSTRUCTIONS: Please follow up in the cardiology clinic next week. TIME SPENT: Greater than 30 minutes were spent on direct patient care, as well as discharge planning and preparation.
--- NOTE | 2018-01-30 13:04 | ASDISCHSUM ---
Discharge Information Plan Status:Home with Home Health Medically Cleared to Leave: Discharge Date:01/29/2018 01:34 PM CM D/C Disposition:Home Health Service ADT D/C Disposition:Home Health Service Projected Discharge Date:01/29/2018 11:00 AM Transportation at D/C: Discharge Delay Reason: Follow-Up Date:01/29/2018 11:00 AM Discharge Slot: Final Diagnosis: Placement Information Referral Type:*Home Health Care Services Referral ID:[id number] Provider Name:[facility] Address 1[address] Address 2: City:[place] Selection Factors: State:[place] Patient Contact Information Contact Name:ROSSANAPAULINA Relationship: Address:[address] City:[place] Alternate Phone: State/Zip Code:[place] [address] Email: Financial Information Financial Class:Medicare Advantage Plans Primary Plan Desc:[facility] [employer] Primary Plan Number:[id number] Secondary Plan Desc: Secondary Plan Number: Assessment Information LACE LACE Length of stay for Answers: 3 days current admission Acuity / Level of Answers: Yes Care: Did the patient have an inpatient admission? Comorbidities - select Answers: Congestive heart failure all that apply Other Notes: Colon cancer, FREDDY # of Emergency department Answers: 1-2 visits in the last 6 months Social determinants Answers: Mental health diagnosis (anxiety, depression, pers onality disorders, etc.) Score: 13 Date Signed: 01/29/2018 12:21 PM Electronically Signed By:DION Calix [facility] CM Progress Note CM Note CM Note Notes: Patient admitted for management of his CHF, which was recently treated at [facility] without good result. He lives with his and is normally independent. Once diuresis has helped stabilize him, I anticipate that he will discharge without needs. Case Management available if any arise. Current discharge plan: home independent Date Signed: 01/27/2018 02:30 PM Electronically Signed By:Milka Hendrix RN Case Management Discharge Plan Note Case Management Discharge Discharge Order Complete? Answers: Yes Patient to Obtain Answers: via Family Medications Transportation Arranged Answers: Family/Friends EMTALA Complete Answers: No Case Management Transport Answers: No Form Complete Faxed Final Orders Answers: Yes Agency/Facility Transfer Answers: Yes Report Printed & Faxed to Receiving Agency Family Notified Answers: Yes Discharge Comments Notes: CM discussed pts case w/ Dr. Rawls. CM met w/ pt and Rossana, for dispo planning. Both are agreeable to having HC. Pt and does not have a preference on HC agency as long as it is covered by their insurance. Referral made to [facility]. [facility] is able to accept. Pt is aware that he would need to be home bound. CM confirmed pts phone number and address. CM provided KARLA Hurd w/ phone number to give report. CM available for changes. Plan: [facility]; KARLA and PT Date Signed: 01/29/2018 12:20 PM Electronically Signed By:DION Calix Intervention Information Intervention Type:*FISCHER-Signed Date of Service:01/27/2018 10:21 AM Patient Type:Observation Staff Member:Frances Ren Hours: Discipline: Severity: Comment: Intervention Type:*IM-Signed Date of Service:01/29/2018 11:16 AM Patient Type:Inpatient Staff Member:Frances Ren Hours: Discipline: Severity: Comment:
== END 2018-01-29 13:34 | disposition home health service (06) | DRG 292 ==
LOC: OBSVTOIN 19:24 → F2W 20:31
PROVIDERS: ADMIT Internal Medicine; ATTEND Internal Medicine
DX: I50.21 Acute systolic (congestive) heart failure (principal); N17.9 Acute kidney failure, unspecified; E87.1 Hypo-osmolality and hyponatremia; I42.0 Dilated cardiomyopathy; I48.91 Unspecified atrial fibrillation; G47.33 Obstructive sleep apnea (adult) (pediatric); D50.0 Iron deficiency anemia secondary to blood loss (chronic); E66.01 Morbid (severe) obesity due to excess calories; Z68.30 Body mass index [BMI] 30.0-30.9, adult; Z79.01 Long term (current) use of anticoagulants; Z66 Do not resuscitate
CPT/HCPCS: 96374; G0378; J1940; J2405; J2916

== ENCOUNTER 2018-02-02 13:01 | Emergency (ER) | payer OTHER ==
--- NOTE | 2018-02-02 13:21 | EDPHY ---
H & P Time Seen by Provider: 02/02/18 13:09 HPI/ROS: HPI Left arm swelling. 67-year-old male by private vehicle with his . This patient is right-hand dominant. He presents to the emergency department complaining of atraumatic swelling and tenderness to the medial antecubital space of his left ventral arm. He is on Eliquis. Denies any fever. No weakness or loss of sensation in his upper extremity. He noticed this about 2 days ago. ROS: Constitutional: No fever, no chills. No weakness. Respiratory: No cough. No shortness of breath. Cardiac: No chest pain, no palpitations. Gastrointestinal: No abdominal pain, no vomiting, no diarrhea. Musculoskeletal: No back pain. No neck pain. As above. Denies other extremity pain. Skin: No rashes. Neurological: No headache. No focal weakness or altered sensation. Past medical history: Colon cancer status post resection, low testosterone, congestive heart failure, atrial fibrillation, recent history of acute kidney injury, hyponatremia, obstructive sleep apnea, chronic iron deficiency anemia, morbid obesity. Social history: Nonsmoker. No alcohol. Here with his . Physical Exam: General Appearance: Alert, no distress. This patient is responding to questions appropriately and in full sentences. This patient appears well- hydrated and well-nourished. Eyes: Pupils equal and round no pallor or injection. No lid edema, erythema or injection. Left upper extremity exam: Significant for a mildly tender swelling about 2 x 3 cm, medial aspect of the antecubital space. It is not erythematous. No diffuse asymmetric edema in the left upper extremity. No associated warmth or ecchymosis. The left upper extremity is neurovascularly intact. Neurological: Motor sensory function is grossly intact. Cranial nerves are normal. Gait is normal. Skin: Warm and dry, no rashes. Extremities are symmetrical except noted. All joints range without pain or impingement. Psychiatric: No agitation. No depression. Database: EKG: Imaging: Left upper extremity Doppler ultrasound: Small amount of superficial thrombus in the left basilic vein. Nothing in the deep system. No inflammatory changes. Results were discussed with staff radiologist Dr. Sundar Carvajal. Procedures: Emergency department course: His vital signs reviewed. Patient was sent for a left upper extremity ultrasound to evaluate for DVT verses superficial thrombophlebitis. 2:00 p.m., patient re-evaluated. Comfortable at this time. Results of ultrasound and diagnosis of superficial thrombus discussed with the patient. At this time he is on Eliquis at 5 mg twice daily. He will continue this medication and have a repeat ultrasound in 5-7 days. This can be arranged by his primary care physician. Follow-up and return to emergency department precautions were discussed with him in detail. All of his questions were answered. He was discharged in good condition with his . Differential Diagnosis: The differential diagnosis on this patient includes but is not limited to DVT, superficial thrombophlebitis, localized inflammatory reaction. Cellulitis, abscess unlikely. This represents a partial list of diagnoses considered. These considerations are based on history, physical exam, past history, reassessment and diagnostic testing. Smoking Status: Never smoked Constitutional: Initial Vital Signs Temperature (C) 36.9 C 02/02/18 13:16 Heart Rate 73 02/02/18 13:16 Respiratory Rate 16 02/02/18 13:16 Blood Pressure 101/68 02/02/18 13:16 O2 Sat (%) 98 02/02/18 13:16 O2 Delivery Mode Room Air Allergies/Adverse Reactions: Penicillins Allergy (Verified 01/26/18 17:36) Rash Home Medications: Medication Instructions Recorded Apixaban [Eliquis] 5 mg PO BID 01/26/18 Esomeprazole Mag Trihydrate 40 mg PO DAILY 01/26/18 [Nexium] FLUoxetine [Prozac 10 MG (*)] 10 mg PO DAILY 01/26/18 [place]-3/Dha/Epa/Fish Oil [[place] 3 1 each PO DAILY 01/26/18 500 Softgel] Ondansetron [Ondansetron Odt] 4 mg PO Q8 01/26/18 Ranitidine HCl [Zantac] 300 mg PO BID 01/26/18 Tamsulosin HCl [Flomax 0.4 MG (*)] 0.4 mg PO DAILY 01/26/18 buPROPion [Wellbutrin 75mg (*)] 75 mg PO DAILY 01/26/18 Amiodarone HCl [Pacerone (*)] 400 mg PO DAILY #60 tab 01/29/18 Aspirin [Aspirin 81mg (*)] 81 mg PO DAILY #30 tab.chew 01/29/18 Atorvastatin Calcium [Lipitor 40 40 mg PO HS #30 tab 01/29/18 mg (*)] Furosemide [Lasix 40 MG (*)] 40 mg PO DAILY #30 tab 01/29/18 Lisinopril [Zestril 2.5 mg (*)] 2.5 mg PO DAILY #30 tab 01/29/18 Metoprolol Succinate Xr [Toprol Xl 25 mg PO DAILY #30 tab 01/29/18 25 mg (*)] Departure - Departure Disposition: Home, Routine, Self-Care Clinical Impression: Superficial thrombophlebitis of left upper extremity Condition: Good Instructions: Superficial Thrombophlebitis (ED) Additional Instructions: Read and follow provided instructions. Follow-up with your primary care physician in 5-7 days for repeat ultrasound of your left upper extremity. This can be arranged by her primary care physician. Continue taking her Eliquis as prescribed. Return to the emergency department for worsening swelling, pain, redness to the area, fever or other serious concerns. Referrals: Sharlene Chin MD [Primary Care Provider] - As per Instructions
[2018-02-02 14:20] VITALS: BP 118/67
== END 2018-02-02 14:19 | disposition home or self-care (01) ==
LOC: CED 13:01
DX: I80.8 Phlebitis and thrombophlebitis of other sites (principal); I50.9 Heart failure, unspecified; Z79.01 Long term (current) use of anticoagulants; Z79.82 Long term (current) use of aspirin; Z85.038 Personal history of other malignant neoplasm of large intestine
CPT/HCPCS: 93971-PO

== ENCOUNTER 2018-02-18 06:35 | Day surgery (SDC) | payer OTHER ==
[2018-02-18] MEDS ORDERED: NS 1,000 ML IV ONE (06:40)
--- NOTE | 2018-02-18 06:54 | CPEKG ---
Heart Rate: 64 RR Interval: 938 QRSD Interval: 162 QT Interval: 484 QTC Interval: 500 QRS Sun: -113 T Wave Sun: 152 EKG Severity - ABNORMAL ECG - EKG Impression: ATRIAL FIBRILLATION EKG Impression: RIGHT BUNDLE BRANCH BLOCK Electronically Signed By: Isra Dougherty 18-Feb-2018 12:43:52
[2018-02-18] MEDS ORDERED: ATROPINE SULFATE 1 MG/10 ML SYR ONE (07:09)
[2018-02-18 07:35] LABS: INR 1.48 (0.83-1.16); PROTIME(PATIENT) 18.1 SEC (12.0-15.0)
--- NOTE | 2018-02-18 07:57 | PDANEPAE ---
ANE History of Present Illness a fib ANE Past Medical History - Cardiovascular History Hx Hypertension: Yes Hx Arrhythmias: Yes Hx Chest Pain: No Hx Coronary Artery / Peripheral Vascular Disease: No Hx CHF / Valvular Disease: Yes Hx Palpitations: Yes - Pulmonary History Hx COPD: No Hx Asthma/Reactive Airway Disease: No Hx Recent Upper Respiratory Infection: Yes Hx Oxygen in Use at Home: Yes Hx Sleep Apnea: Yes Pulmonary History Comment: manuel dx - BIPAP- instructed to bring to hospital - Neurologic History Hx Cerebrovascular Accident: No Hx Seizures: No Hx Dementia: No - Endocrine History Hx Diabetes: No Endocrine History Comment: type 2 well controlled with diet and exercise - Renal History Hx Renal Disorders: Yes Renal History Comment: hx of turp. vasectomy - Liver History Hx Hepatic Disorders: No - Neurological & Psychiatric Hx Hx Neurological and Psychiatric Disorders: Yes Neurological / Psychiatric History Comment: depression- BUPROPIONE - Cancer History Hx Cancer: Yes Cancer History Comment: COLON CA - Congenital Disorder History Hx Congenital Disorders: No - GI History Hx Gastrointestinal Disorders: Yes Gastrointestinal History Comment: GERD. COLON CA IN PAST. barretts esophagus - Other Health History Other Health History: NEG - Chronic Pain History Chronic Pain: Yes (bilateral knees) - Surgical History Prior Surgeries: 09/19/14 right tka. turp. vasectomy. COLON RESECTION FOR CA 1996 ANE Review of Systems Review of Systems: ANE Patient History - Allergies Allergies/Adverse Reactions: Penicillins Allergy (Intermediate, Verified 02/17/18 10:23) Rash - Home Medications Home Medications: Apixaban [Eliquis] 5 mg PO BID 01/26/18 [Last Taken 01/26/18 19:00] Esomeprazole Mag Trihydrate [Nexium] 40 mg PO DAILY 01/26/18 [Last Taken 07:00] FLUoxetine [Prozac 10 MG (*)] 10 mg PO DAILY 01/26/18 [Last Taken 01/26/18 10:00 ] [place]-3/Dha/Epa/Fish Oil [[place] 3 500 Softgel] 1 each PO DAILY 01/26/18 [Last Taken 01/26/18 10:00] Ondansetron [Ondansetron Odt] 4 mg PO Q8 01/26/18 [Last Taken Unknown] Ranitidine HCl [Zantac] 300 mg PO BID 01/26/18 [Last Taken 01/26/18 10:00] Tamsulosin HCl [Flomax 0.4 MG (*)] 0.4 mg PO DAILY 01/26/18 [Last Taken 10:00] buPROPion [Wellbutrin 75mg (*)] 75 mg PO DAILY 01/26/18 [Last Taken 01/26/18 10: 00] - Smoking Hx Smoking Status: Never smoked - Family Anes Hx Family Hx Anesthesia Complications: NEG ANE Labs/Vital Signs - Labs Result Diagrams: 02/18/18 07:00 02/18/18 07:00 - Vital Signs Height: 173 cm Weight: 104.3 kg ANE Physical Exam - Airway Neck exam: FROM Mallampati Score: Class 1 Mouth exam: dentures - Pulmonary Pulmonary: no respiratory distress - Cardiovascular Cardiovascular: irregularly irregular - ASA Status ASA Status: III ANE Anesthesia Plan Total IV Anesthesia: Yes
[2018-02-18] MEDS ORDERED: PROPOFOL 200 MG/20 ML VIAL ONE (07:58)
--- NOTE | 2018-02-18 08:21 | PDHPUP ---
History & Physical Update H&P update statement: This history and physical update is based on an assessment of the patient which was completed after admission or registration (within 24 hours), but prior to the surgery/procedure. H&P update: H&P reviewed & patient examined, no change in patient's condition since H&P completed (I have reviewed Dr. Henderson' note from 02/17/2018)
--- NOTE | 2018-02-18 09:21 | POSTANESTH ---
Post Anesthetic Evaluation Cardiovascular Status: Normal, Stable Respiratory Status: Normal, Stable Level of Consciousness/Mental Status: Can Participate in Eval Pain Control: Adequate, Prn Tx Ordered Nausea/Vomiting Control: Adequate, Prn Tx Ordered Complications Possibly Related to Anesthesia: None Noted
--- NOTE | 2018-02-18 09:35 | PDTEE1 ---
MINNA Cardioversion Procedure Procedure: electrical cardioversion, transesophageal echo Indications: atrial fibrillation, cardiomyopathy Anticoagulation: eliquis Procedural Details: Sedation provided by the anesthesia service. Pads were placed in anterior- posterior position. MINNA probe was advanced and standard images obtained. There is no evidence of left atrial or left atrial appendage thrombus. Synchronized cardioversion attempt #1: 200J Results: normal sinus rhythm Conclusions: successful MINNA cardioversion Patient Problems: Problems Problem Status Onset Congestive heart failure Acute Knee arthropathy Acute
--- NOTE | 2018-02-18 10:16 | ECHO ---
[email or web address] [address] Main: [phone] Fax: Transesophageal Echocardiography Name: SANDY GALLARDO MR#: [id number] Study Date: 02/18/2018 Study Time: 06:55 AM Date of : 1950 Age: 67 year(s) Height: ( ) Weight: ( ) BSA: Gender: Male Examination: MINNA Indication: Pre Cardioversion Image Quality: Contrast: Requested by: Avery Henderson Heart Rate: Rhythm: BP: / Procedure Staff Game Artist: Hussein Hartman RD Reading Physician: Audrey Rob MD Requesting Provider: Avery Henderson MD MINNA Exam Details Conclusions: Severely reduced systolic LV function. There is global LV hypokinesis with the EF estimated at 20%. Mildly dilated right ventricle. Mildly to moderately reduced right ventricular function. The left atrium is moderately to severely dilated. An agitated saline study was performed and was negative for intracardiac shunting. No thrombus in left appendage. Moderate mitral valve regurgitation is present. Measurements: Chambers Valvular Assessment AV/MV Valvular Assessment TV/PV Normal Normal Normal Name Value Range Name Value Range Name Value Range Visual EF: 20 % Additional Measurements: Findings: Left Ventricle: Severely reduced systolic LV function. The ejection fraction is visually estimated to be 20 %. There is global LV hypokinesis with the EF estimated at 20%. Right Ventricle: Mildly dilated right ventricle. Mildly to moderately reduced right ventricular function. Patient: SANDY GALLARDO Study Date: 02/18/2018 Page 1 of 2 06:55 AM Left Atrium: The left atrium is moderately to severely dilated. An agitated saline study was performed and was negative for intracardiac shunting. Left Atrial Appendage: No thrombus in left appendage. Mitral Valve: Moderate mitral valve regurgitation is present. Aortic Valve: The aortic valve is tri-leaflet and functions normally. Tricuspid Valve: The tricuspid valve is normal in appearance and function. Pulmonic Valve: The pulmonic valve is normal in appearance and function. Aorta: The aorta is normal. Pericardium: No pericardial effusion. l1n (No Signature Object) Patient: SANDY GALLARDO Study Date: 02/18/2018 Page 2 of 2 06:55 AM [id number]
--- NOTE | 2018-02-18 10:58 | CPEKG ---
Heart Rate: 51 RR Interval: 1176 P-R Interval: 208 QRSD Interval: 162 QT Interval: 556 QTC Interval: 513 P [place]: 6 QRS [place]: -106 T Wave [place]: 163 EKG Severity - ABNORMAL ECG - EKG Impression: SINUS RHYTHM EKG Impression: ATRIAL PREMATURE COMPLEX EKG Impression: RIGHT BUNDLE BRANCH BLOCK EKG Impression: 1St degree AV block Electronically Signed By: Isra Dougherty 18-Feb-2018 12:43:49
== END 2018-02-18 10:30 | disposition home or self-care (01) ==
LOC: FCATH 06:35
PROVIDERS: ATTEND Internal Medicine Cardiovascular Disease
PROC: 5A2204Z Restoration of Cardiac Rhythm, Single (ICD-10-PCS; principal; 2018-02-18)
PROC: B245ZZ4 Ultrasonography of Left Heart, Transesophageal (ICD-10-PCS; principal; 2018-02-18)
DX: I48.1 Persistent atrial fibrillation (principal); I42.9 Cardiomyopathy, unspecified; I50.21 Acute systolic (congestive) heart failure; R06.02 Shortness of breath; G47.33 Obstructive sleep apnea (adult) (pediatric); I27.20 Pulmonary hypertension, unspecified; I13.0 Hypertensive heart and chronic kidney disease with heart failure and stage 1 through stage 4 chronic kidney disease, or unspecified chronic kidney disease; N18.9 Chronic kidney disease, unspecified; F32.9 Major depressive disorder, single episode, unspecified; K21.9 Gastro-esophageal reflux disease without esophagitis; E80.4 Gilbert syndrome; E78.5 Hyperlipidemia, unspecified; E29.1 Testicular hypofunction; E66.9 Obesity, unspecified; Z68.34 Body mass index [BMI] 34.0-34.9, adult; K22.70 Barrett's esophagus without dysplasia; E11.9 Type 2 diabetes mellitus without complications; Z79.01 Long term (current) use of anticoagulants; Z79.82 Long term (current) use of aspirin; Z85.038 Personal history of other malignant neoplasm of large intestine; Z87.891 Personal history of nicotine dependence; Z82.49 Family history of ischemic heart disease and other diseases of the circulatory system; Z96.651 Presence of right artificial knee joint; Z90.49 Acquired absence of other specified parts of digestive tract; Z88.0 Allergy status to penicillin
CPT/HCPCS: J0461; J2704

== ENCOUNTER 2018-04-08 10:18 | Inpatient (IN) | payer OTHER ==
--- NOTE | 2018-04-08 10:33 | CPEKG ---
Heart Rate: 46 RR Interval: 1304 P-R Interval: 128 QRSD Interval: 150 QT Interval: 573 QTC Interval: 502 P [place]: -8 QRS [place]: -54 T Wave [place]: 229 EKG Severity - ABNORMAL ECG - EKG Impression: SINUS BRADYCARDIA EKG Impression: RBBB AND LAFB Electronically Signed By: Davonte Salazar 08-Apr-2018 14:57:15
--- NOTE | 2018-04-08 10:41 | EDPHY ---
H & P Stated Complaint: hx a fib/dizzy/lightheaded Time Seen by Provider: 04/08/18 10:41 - Personal History Current Tetanus Diphtheria and Acellular Pertussis (TDAP): Yes - Medical/Surgical History Hx Asthma: No Hx Chronic Respiratory Disease: No Hx Diabetes: No Hx Cardiac Disease: Yes Hx Renal Disease: No Hx Cirrhosis: No Hx Alcoholism: No Hx HIV/AIDS: No Hx Splenectomy or Spleen Trauma: No Other PMH: history of kidney stones,Depression, Colon CA, hernia. B knees, low testosterone for which he is receiving seed implantation, heart failure, afib, dilated cm, freddy,. beryllium exposure (work related) - Social History Smoking Status: Never smoked Constitutional: Initial Vital Signs Temperature (C) 36.4 C 04/08/18 10:20 Heart Rate 44 L 04/08/18 10:20 Respiratory Rate 16 04/08/18 10:20 Blood Pressure 99/54 L 04/08/18 10:20 O2 Sat (%) 97 04/08/18 10:20 O2 Delivery Mode Room Air Allergies/Adverse Reactions: Penicillins Allergy (Intermediate, Verified 04/08/18 10:19) Rash Home Medications: Medication Instructions Recorded Apixaban [Eliquis] 5 mg PO BID 01/26/18 Esomeprazole Mag Trihydrate 40 mg PO DAILY 01/26/18 [Nexium] FLUoxetine [Prozac 10 MG (*)] 10 mg PO DAILY 01/26/18 Melrose-3/Dha/Epa/Fish Oil [Melrose 3 1 each PO DAILY 01/26/18 500 Softgel] Ondansetron [Ondansetron Odt] 4 mg PO Q8 01/26/18 Ranitidine HCl [Zantac] 300 mg PO BID 01/26/18 Tamsulosin HCl [Flomax 0.4 MG (*)] 0.4 mg PO DAILY 01/26/18 buPROPion [Wellbutrin 75mg (*)] 75 mg PO DAILY 01/26/18 Amiodarone HCl [Pacerone (*)] 400 mg PO DAILY #60 tab 01/29/18 Aspirin [Aspirin 81mg (*)] 81 mg PO DAILY #30 tab.chew 01/29/18 Atorvastatin Calcium [Lipitor 40 40 mg PO HS #30 tab 01/29/18 mg (*)] Furosemide [Lasix 40 MG (*)] 40 mg PO DAILY #30 tab 01/29/18 Lisinopril [Zestril 2.5 mg (*)] 2.5 mg PO DAILY #30 tab 01/29/18 Metoprolol Succinate Xr [Toprol Xl 25 mg PO DAILY #30 tab 01/29/18 25 mg (*)] Medical Decision Making ED Course/Re-evaluation: CHIEF COMPLAINT: Dizzy, low pulse HISTORY OF PRESENT ILLNESS: The patient is an anticoagulated (Eliquis) 68 y/o male with history of atrial fibrillation complaining of dizziness, a low heart rate, and low blood pressure onset this morning. The patient took Viagra and his blood pressure medications this morning prior to onset of symptoms. After onset of his symptoms he called his insurance defense attorney, Dr. Henderson, who advised that the patient present to the emergency department. His heart rate is usually in the high 50's/low 60's. Denies headache, chest pain, shortness of breath, abdominal pain, urinary or bowel complaints, fever. REVIEW OF SYSTEMS: A 10 point review of systems was performed and is negative with the exception of the elements mentioned in the history of present illness. PHYSICAL EXAM: HR: 48, BP: 95/52, O2 Sat, RR. Temp noted General Appearance: Alert, well hydrated, appropriate, and non-toxic appearing. Head: Atraumatic without scalp tenderness or obvious injury Eyes: Pupils equal, round, reactive to light and accommodation, EOMI, no trauma , no injection. Ears: Clear bilaterally, no perforation, normal landmarks Nose: Atraumatic, no rhinorrhea, clear. Throat: There is no erythema or exudates, no lesions, normal tonsils, mucus membranes moist. Neck: Supple, nontender, no lymphadenopathy. Respiratory: No retractions, no distress, no wheezes, and no accessory muscle use. Lungs are clear to auscultation bilaterally. Cardiovascular: Mild bradycardia, no murmurs, rubs, or gallops. Bilateral carotid, radial, dorsalis pedis, and posterior tibial pulses intact. Good capillary refill all extremities. Gastrointestinal: Abdomen is soft, nontender, non-distended, no masses, no rebound, no guarding, no peritoneal signs. Musculoskeletal: Normal active ROM of all extremities, atraumatic. Neurological: Alert, appropriate, and interactive. The patient has normal DTRs and non-focal cranial nerves, motor, sensory, and cerebellar exam. Skin: No rashes, good turgor, no nodules on palpation. Past medical history: Atrial fibrillation, kidney stones, depression, colon cancer, hernia, low testosterone for which he is receiving seed implantation, heart failure, FREDDY Past surgical history: Bilateral knee surgery, Family history: Social history: at bedside, lives in [place], retired DIAGNOSTICS/PROCEDURES/CRITICAL CARE TIME: EKG: The 12 lead EKG was interpreted by myself as sinus bradycardia with a rate of 46, RBBB and LAFB. See hard copy and/or "tracemaster" electronic copy for interpretation. Echocardiogram: DIFFERENTIAL DIAGNOSIS: The differential diagnosis for the patient's dizziness included but was not limited to peripheral and central causes of vertigo, orthostatic causes including dehydration, cardiogenic and neurogenic causes, and blood loss. MEDICAL DECISION MAKING: The patient is an anticoagulated (Eliquis) 68 y/o male with history of atrial fibrillation complaining of dizziness, a low heart rate, and low blood pressure onset this morning after taking Viagra, Lisinopril, and Lasix. On exam he is mildly bradycardic and hypotensive. Labs and EKG ordered. 1031: I interpreted EKG as sinus bradycardia with a rate of 46 1050: Consulted with Dr. Wallace, insurance defense attorney, regarding this patient. He agrees with me, that the patient will need an echo and admission. 1107: Consulted with hospitalist service, Dr. Rangel accepts admission of this patient. 1111: Patient's troponin is 0.01 per I-Stat Reassessed patient and discussed laboratory and imaging findings. I have also discussed plan for admission, which he is comfortable with. - Data Points Laboratory Results: Laboratory Results 04/08/18 10:39 04/08/18 10:39 04/08/18 04/08/18 04/08/18 11:00 10:44 10:39 WBC RBC Hgb POC Hgb 15.6 gm/dL gm/dL (13.7-17.5) Hct POC Hct 46 % % (40-51) MCV MCH MCHC RDW Plt Count MPV Neut % (Auto) Lymph % (Auto) [place] % (Auto) Eos % (Auto) Baso % (Auto) Nucleat RBC Rel Count Absolute Neuts (auto) Absolute Lymphs (auto) Absolute Monos (auto) Absolute Eos (auto) Absolute Basos (auto) Absolute Nucleated RBC Immature Gran % Immature Gran # POC Sodium 140 mEq/L mEq/L (135-145) Sodium 142 mEq/L mEq/L (135-145) POC Potassium 4.2 mEq/L mEq/L (3.3-5.0) Potassium 4.3 mEq/L mEq/L (3.3-5.0) POC Chloride 103 mEq/L mEq/L (97-110) Chloride 104 mEq/L mEq/L (97-110) Carbon Dioxide 27 mEq/l mEq/l (22-31) Anion Gap 11 mEq/L mEq/L (8-16) POC BUN 18 mg/dL mg/dL (7-23) BUN 19 mg/dL mg/dL (7-23) Creatinine 1.0 mg/dL mg/dL (0.7-1.3) POC Creatinine 1.2 mg/dL mg/dL (0.7-1.3) Estimated GFR > 60 Glucose 91 mg/dL mg/dL (70-100) POC Glucose 97 mg/dL mg/dL (70-100) Calcium 9.5 mg/dL mg/dL (8.5-10.4) POC Troponin I 0.01 ng/mL ng/mL (0.00-0.08) NT-Pro-B Natriuret Pep 1030 pg/mL H pg/mL (0-125) 04/08/18 10:39 WBC 5.62 10^3/uL 10^3/uL (3.80-9.50) RBC 5.37 10^6/uL 10^6/uL (4.40-6.38) Hgb 14.5 g/dL g/dL (13.7-17.5) POC Hgb Hct 45.0 % % (40.0-51.0) POC Hct MCV 83.8 fL fL (81.5-99.8) MCH 27.0 pg L pg (27.9-34.1) MCHC 32.2 g/dL L g/dL (32.4-36.7) RDW 19.2 % H % (11.5-15.2) Plt Count 153 10^3/uL 10^3/uL (150-400) MPV 10.0 fL fL (8.7-11.7) Neut % (Auto) 70.6 % % (39.3-74.2) Lymph % (Auto) 16.0 % % (15.0-45.0) [place] % (Auto) 11.9 % % (4.5-13.0) Eos % (Auto) 1.1 % % (0.6-7.6) Baso % (Auto) 0.2 % L % (0.3-1.7) Nucleat RBC Rel Count 0.0 % % (0.0-0.2) Absolute Neuts (auto) 3.97 10^3/uL 10^3/uL (1.70-6.50) Absolute Lymphs (auto) 0.90 10^3/uL L 10^3/uL (1.00-3.00) Absolute Monos (auto) 0.67 10^3/uL 10^3/uL (0.30-0.80) Absolute Eos (auto) 0.06 10^3/uL 10^3/uL (0.03-0.40) Absolute Basos (auto) 0.01 10^3/uL L 10^3/uL (0.02-0.10) Absolute Nucleated RBC 0.00 10^3/uL 10^3/uL (0-0.01) Immature Gran % 0.2 % % (0.0-1.1) Immature Gran # 0.01 10^3/uL 10^3/uL (0.00-0.10) POC Sodium Sodium POC Potassium Potassium POC Chloride Chloride Carbon Dioxide Anion Gap POC BUN BUN Creatinine POC Creatinine Estimated GFR Glucose POC Glucose Calcium POC Troponin I NT-Pro-B Natriuret Pep Point of Care Test Results: Chemistry 04/08/18 04/08/18 11:00 10:44 POC Sodium 140 mEq/L mEq/L (135-145) POC Potassium 4.2 mEq/L mEq/L (3.3-5.0) POC Chloride 103 mEq/L mEq/L (97-110) POC BUN 18 mg/dL mg/dL (7-23) POC Creatinine 1.2 mg/dL mg/dL (0.7-1.3) POC Glucose 97 mg/dL mg/dL (70-100) POC Troponin I 0.01 ng/mL ng/mL (0.00-0.08) ISTAT H&H 04/08/18 10:44 POC Hgb 15.6 gm/dL gm/dL (13.7-17.5) POC Hct 46 % % (40-51) Departure - Departure Disposition: [facility] Inpatient Acute Clinical Impression: Bradycardia Hypotension Qualifiers: Hypotension type: hypotension due to drug Qualified Code(s): I95.2 - Hypotension due to drugs Condition: Fair Referrals: Avery Henderson MD [Primary Care Provider] - As per Instructions Report Scribed for: Davonte Salazra Report Scribed by: Tanisha Mosher Date of Report: 04/08/18 Time of Report: 10:45
[2018-04-08 10:58] LABS: PLATELET COUNT 153 10^3/uL (150-400)
[2018-04-08] MEDS ORDERED: ONDANSETRON 4 MG/2 ML VIAL IVP PRN (12:16)
[2018-04-08] MEDS ORDERED: ONDANSETRON DISINTEGRATING 4 MG TAB PO PRN (12:16)
--- NOTE | 2018-04-08 12:44 | GHP ---
[f rep st] HISTORY AND PHYSICAL DATE OF ADMISSION: 04/08/2018 CHIEF COMPLAINT: Hypotension and bradycardia. HISTORY OF PRESENT ILLNESS: This is a 68-year-old man with a recent diagnosis of nonischemic cardiomyopathy, EF 20%. He checks his pulse, blood pressure and oxygen sat every day. Notably, this morning, he took a Viagra, which he uses for erectile dysfunction. He took his vitals at about 8:00 and noted that he was bradycardic, as well as hypotensive. Normally his blood pressure runs around 100-110; systolic, it was 90. His pulse normally runs in the 50s. It was running in the low 40s. He was also hypoxic on room air. Because of these symptoms, he and his presented to the hospital. He notes that he is feeling dizzy and slightly weak, though he denies chest pain, shortness of breath. He has been compliant with his medications; his administers them. She is concerned that she may have given him the incorrect pills; however, she is quite careful with this and does not think so. He takes metoprolol 50 mg daily, as well as amiodarone. On his last admission, he was noted to be bradycardic on 50 mg of metoprolol and decreased to 25. This was up titrated since then. He last saw Dr. Henderson about a month ago. He does not take any narcotics. He has no known thyroid problems, though I note that his last TSH was 8, with a normal free T and free T4. Dr. Henderson was concerned that his LVEF was not improving appropriately when he last saw him. PAST MEDICAL/SURGICAL HISTORY: 1. Atrial fibrillation. 2. Renal stones. 3. Depression. 4. Colon cancer, status post resection. 5. Hernia, status post repair. 6. Hypotestosteronism, status post seed implantation. 7. Dilated cardiomyopathy with systolic congestive heart failure and last EF of 20%. 8. FREDDY. 9. Obesity. MEDICATIONS: Please see medication reconciliation. ALLERGIES: Penicillin. FAMILY HISTORY: No known cardiomyopathy, though his dad young, likely of heart disease. SOCIAL HISTORY: He does not smoke, does not drink. REVIEW OF SYSTEMS: A 10-point review of systems is conducted and is negative, except per HPI. PHYSICAL EXAM: VITAL SIGNS: Blood pressure 91/42, heart rate 50, respiration rate 18, saturating 99% on room air. Dropped down to as low as 80% on room air with a good waveform, and temperature is 36.4. GENERAL: The patient is a pleasant man who is mentating well, in no acute distress. HEENT: Shows him to be normocephalic, atraumatic. CARDIOVASCULAR: Shows him to be bradycardic. He has very distant S1 and S2, but I do not appreciate any murmurs, rubs, or gallops. He has no elevated JVD. No lower extremity edema. PULMONARY: Lungs clear to auscultation bilaterally. ABDOMEN: Exam shows him to be obese, but he is nontender and nondistended, normal bowel sounds. SKIN: Shows no rash. : Exam shows no [place]. NEUROLOGIC: Exam shows him to be alert and oriented x3. He is moving all extremities. PSYCHIATRIC: Exam shows a normal mood and affect. LABS: CBC is unremarkable. Basic metabolic panel is normal. BNP is 1030. DATA: 1. Discussed with Dr. Salazar. 2. I reviewed his old chart, including his smsPREP chart. 3. I personally viewed and interpreted his ECG. This shows sinus bradycardia. It is unchanged from previous. IMPRESSION AND PLAN: 1. Hypotension and bradycardia: Suspect that he may not be tolerating his metoprolol and amiodarone. His last TSH was slightly elevated. Will check a thyroid panel. Fortunately, he is mentating well. Cardiology will be involved in his care, and he will be monitored on the PCU. For now, will hold any reji blockers and antihypertensives pending Cardiology evaluation. Discussed with Cyndi and Dr Wallace who will consult. 2. Dilated cardiomyopathy, nonischemic, with congestive heart failure. His EF is 20%. He is well compensated, with no edema. His weight is down about 3 pounds over the last month. His kidney function is stable. Echocardiogram has been performed; however, it is not read yet. Dr. Henderson was concerned that his EF was not improving. He may be a candidate for a BiV pacer. As above, Cardiology will be involved. I wonder whether he would do better on Coreg as opposed to metoprolol. He is also on an ИВАН inhibitor. 3. Colon cancer, status post resection. 4. Obstructive sleep apnea, on CPAP. 5. Hypoxia: No clear etiology for this. His lungs are relatively clear. I will check a chest x-ray to further evaluate. PE is very unlikely as he is on Eliquis. 6. Obesity. 7. Code status: He would like to be do not resuscitate. He and his both understand what this means and are in agreement. 8. Venous thromboembolism risk is low as he is on Eliquis. /[id number]/MODL MTDD
--- NOTE | 2018-04-08 12:46 | ECHO ---
[email or web address] [id number] Main: [phone] Fax: Transthoracic Echocardiogram Name: SANDY GALLARDO MR#: [id number] Study Date: 04/08/2018 Study Time: 11:29 AM Date of : 1950 Age: 68 year(s) Height: 172.7 cm (68 in.) Weight: 100.24 kg (221 lb.) BSA: 2.13 m2 Gender: Male Examination: Echo Indication: Chest Pain Image Quality: Contrast: Requested by: Davonte Salazar BP: 97 mmHg/58 mmHg Heart Rate: Rhythm: Indication: Chest Pain Procedure [employer] Lawyer: Linh Stafford RDCS Reading Physician: Austin Wallace MD Requesting Provider: Conclusions: Severely dilated left ventricle. No LV hypertrophy. Severely reduced systolic LV function. The ejection fraction is estimated to be 15-20 %. Diastolic dysfunction is present. . The left atrium is severely dilated. The right atrium is mildly dilated. Mild mitral valve regurgitation is present. Trivial aortic valve regurgitation. Mild tricuspid regurgitation is present. Trivial pulmonic valve regurgitation. Borderline dilated ascending aortic.. Measurements: Chambers Valvular Assessment AV/MV Valvular Assessment TV/PV Normal Normal Normal Name Value Range Name Value Range Name Value Range LVDd (2D): 7.7 cm (4.2 cm-5.9 AV Vmax: 1.14 m/s (1 m/s-1.7 cm) m/s) LVOTd 3.1 cm 3.1 cm mm AV maxP mmHg ( - ) LVEF (MOD4): 12 % (>=55 %) AV meanP mmHg ( - ) EF Range: 15-20 % MV E Vmax: 0.53 m/s ( - ) MV A Vmax: 0.67 m/s ( - ) MV E/A: 0.79 ( - ) Continued Measurements: Chambers Valvular Assessment AV/MV Name Value Name Value Patient: SANDY GALLARDO Study Date: 04/08/2018 Page 1 of 2 11:29 AM LADs: 5.0 cm MV E/E' Septal: 14.00 LADs Lon.9 cm MV E/E' Lateral: 19.50 LA Area: 32.7 cm2 Additional Vessels Name Value Ao Ascendin.0 cm Findings: Left Ventricle: Severely dilated left ventricle. No LV hypertrophy. Severely reduced systolic LV function. The ejection fraction is estimated to be 15-20 %. Diastolic dysfunction is present. . Right Ventricle: Normal size right ventricle. Left Atrium: The left atrium is severely dilated. Right Atrium: The right atrium is mildly dilated. Mitral Valve: The mitral valve is normal in appearance and function. Mild mitral valve regurgitation is present. Aortic Valve: The aortic valve is normal in appearance and function. Trivial aortic valve regurgitation. Dilated LVOT.. Tricuspid Valve: The tricuspid valve is normal in appearance and function. Mild tricuspid regurgitation is present. Pulmonic Valve: The pulmonic valve is normal in appearance and function. Trivial pulmonic valve regurgitation. Aorta: Borderline dilated ascending aortic.. The aorta is normal. Pericardium: No pericardial effusion. (No Signature Object) Patient: SANDY GALLARDO Study Date: 04/08/2018 Page 2 of 2 11:29 AM [id number]
--- NOTE | 2018-04-08 16:31 | ASMTLACE ---
[facility] Comorbidities - select Answers: Any tumor (including all that apply lymphoma or leukemia) Congestive heart failure Other Notes: Atrial fibrillation; Renal stones # of Emergency department Answers: 3-4 visits in the last 6 months Social determinants Answers: Mental health diagnosis (anxiety, depression, pers onality disorders, etc.) Score: 11 Date Signed: 04/08/2018 04:30 PM Electronically Signed By:Frances Ren
[2018-04-08] MEDS: APIXABAN 5 MG TAB PO SCH (18:30)
[2018-04-08] MEDS: ATORVASTATIN CALCIUM 40 MG TAB PO SCH (21:36)
[2018-04-08] MEDS: FAMOTIDINE 20 MG TAB PO SCH (21:36)
[2018-04-09 04:29] LABS: PLATELET COUNT 129 10^3/uL (150-400)
[2018-04-09] MEDS: APIXABAN 5 MG TAB PO SCH (06:38)
[2018-04-09] MEDS: OMEGA-3 FATTY ACIDS 1,000 MG CAP PO SCH (08:59)
[2018-04-09] MEDS: FLUoxetine 10 MG CAP PO SCH (08:59)
[2018-04-09] MEDS: LISINOPRIL 2.5 MG TAB PO SCH (08:59)
[2018-04-09] MEDS: TAMSULOSIN HCL 0.4 MG CAP PO SCH (08:59)
[2018-04-09] MEDS: PANTOPRAZOLE SODIUM 40 MG TAB PO SCH (09:00)
[2018-04-09] MEDS: buPROPion 75 MG TAB PO SCH (09:00)
[2018-04-09] MEDS: FAMOTIDINE 20 MG TAB PO SCH ×2 (09:00→21:33)
[2018-04-09] MEDS: ASPIRIN 81 MG CHEWABLE TAB PO SCH (09:01)
--- NOTE | 2018-04-09 11:40 | GCON ---
[f rep st] CONSULTATION DATE OF CONSULTATION: 04/09/2018 REASON FOR CONSULTATION: Bradycardia and hypotension. HISTORY OF PRESENT ILLNESS: This is a very pleasant 68-year-old male whom we were asked to consult on by Dr. Rangel for hypertension and bradycardia. The patient has a past medical history of nonischemic cardiomyopathy with EF of 20% , first diagnosed in January,, PAF on amiodarone, Eliquis, and metoprolol, moderate MR, colon cancer, and obstructive sleep apnea. The patient was admitted on 04/08/2018 with complaints of hypotension and bradycardia. The patient states that his was checking his vitals yesterday morning and noted a heart rate of 38, low blood pressure, and O2 saturation of 80%. O2 saturation remained unchanged after he put on oxygen. Patient then became dizzy and weak. His administers his medications on a daily basis and states that he was given amiodarone, furosemide, Nexium, and Viagra. The patient was advised to present to the ED after talking to Dr. Henderson. On admission, EKG showed sinus bradycardia, rate of 46, QTc prolongation at 500 and right bundle branch block. His medications have hence been held. Despite this, he continues to have SBP 90 and HR 30s-60. The patient saw Dr. Henderson in office on 03/01/2018, who discussed cardiac resynchronization therapy if his EF did not improve but subsequently, the patient presented to the ED sooner than when he was supposed to have an echo done. REVIEW OF SYSTEMS: 10-point review of systems is negative except for what is stated in HPI. PAST MEDICAL HISTORY: Atrial fibrillation and dilated cardiomyopathy with systolic CHF, EF of 20% on echo, obstructive sleep apnea, pulmonary hypertension , chronic renal insufficiency, colon cancer, hyperlipidemia, hypertension, GERD , depression. PAST SURGICAL HISTORY: Angiogram in 01/2018 that showed normal coronary anatomy. RHC: RA 15, PA 54/27 (30), PCWP 35 and CO 5.4 L/min, colectomy, transurethral resection of the prostate, vasectomy. MEDICATIONS: Please see EMR for further details. ALLERGIES: Penicillin. FAMILY HISTORY: Heart failure on the paternal side at age 65. SOCIAL HISTORY: The patient is . Lives in [place] with his . Occasional alcohol use. Former smoker. Denies illicit drug use. PHYSICAL EXAMINATION: VITAL SIGNS: Blood pressure 92/57, heart rate 48, O2 saturation 98 on room air. GENERAL: Pleasant, well-nourished, well-groomed male, sitting up in the chair with his beside him in no acute distress. Obese body habitus. HEENT: Normocephalic, atraumatic. No gross hearing deficit. Pupils equal and round. No scleral icterus. Moist mucous membranes. RESPIRATORY: Lungs are clear to auscultation bilaterally without wheezes, rales, or rhonchi. CARDIOVASCULAR: Normal rate and rhythm. No peripheral edema. No heaves, thrills, or lifts. ABDOMEN: Central obesity, soft, nontender. Bowel sounds heard. NEURO: Alert and oriented. PSYCH: Appropriate mood and affect. STUDIES: His EKG and echocardiogram were personally reviewed by me. Echocardiogram showed bradycardia, rate of 46 with a right bundle branch block. Echocardiogram showed severely dilated left ventricle. No LV hypertrophy. Severely reduced systolic LV function. The EF is estimated to be 15% to 20%. Diastolic dysfunction is present. The left atrium is severely dilated. Right atrium is mildly dilated. ASSESSMENT: This is a very pleasant 68-year-old male whom we are seeing for hypertension and bradycardia. The patient has a past medical history of nonischemic cardiomyopathy. Echo done yesterday showed EF of 15% to 20%, decreased LV function, and diastolic cardiomyopathy, and increased left atrial size. PLAN: 1. Dilated cardiomyopathy with systolic CHF, EF 15% to 20% on echo. The patient's medication are currently being held. Telemetry shows sinus rhythm with rates in the 30s-50s. The patient denies any current symptoms at this time. We discussed a few options with the patient. We will discuss with Dr. Benavides , and likely keep overnight to consider cardiac resynchronization therapy sooner rather than having the patient wait until next week. He will be kept NPO and the next doses of Eliquis will be held. 2. Paroxysmal atrial fibrillation. No atrial fibrillation noted since admission. Rates are in the 50s. We will continue to hold his amiodarone. Last dose was given yesterday morning. 3. Obstructive sleep apnea. Follow recommendation by the hospitalist and outpatient pulmonology. /[id number]/MODL MTDD
--- NOTE | 2018-04-09 14:56 | ASMTCMCOM ---
CM Note CM Note Notes: 04/09/2018 [facility] Management Note Discussed pt during rounds this morning. Pt admitted for hypotension and bradycardia. Pacermaker/defibrillator to be placed tomorrow per pt. Met w/pt and this afternoon to discuss d/c needs. Pt is indepedent in ADL's. Pt is a former [employer] worker who is connected with [employer]. Pt utilized [facility] in January and requested re initiation of services. Notified [facility] over the phone and faxed referral via [employer] [facility] accepted pt for home RN. Case Management d/c poc: home with [facility] RN for med management/teaching and wound care from upcoming procedure. Case Management to follow. Date Signed: 04/09/2018 02:55 PM Electronically Signed By:Shruthi Granado RN
--- NOTE | 2018-04-09 15:27 | HOSPPROG ---
Hospitalist Progress Note Assessment/Plan: 68 yo M with hx of systolic HF, a fib, colon cancer admitted with hypotension and bradycardia # hypotension/bradycardia: holding BB/amiodarone but still continued, there has been plan for cardiac resynchronization therapy which may be performed sooner at this point # chronic systolic heart failure: with EF on most recent echo slighly lower than prior now at 15%, CXR personally reveiwed without e/o significant pulmonary edema and does not appear volume overloaded on exam. As above # p afib: on personal review of ecg noted to be in a sinus sarah with associated RBBB, rates remain low as above despite holding amiodarone/bb. Eliquis held for now pending possible cardiac resync in am # hx of colon cancer # htn: BP remains minimally low, continueing very low dose lisinopril # elevated TSH: with normal t4/t3, repeat TFTs in 6 weeks # IP status, will need > 48 hours stay for eval/mgmt of above Care plan reviewed with cardiology as above. Further hx obtained from patients as above. Subjective: no significant overnight events, pateint feeling much better Objective: Vital Signs Temp Pulse Resp BP Pulse Ox 36.7 C 52 L 18 118/67 97 04/09/18 11:30 04/09/18 11:30 04/09/18 11:30 04/09/18 11:30 04/09/18 11:30 Laboratory Results 04/09/18 03:41 04/09/18 03:41 04/08/18 04/09/18 04/10/18 05:59 05:59 05:59 Intake Total 850 500 Output Total 1300 300 Balance -450 200 awake alert nad anicteric op clear sarah regular cta b soft nt nd trace ble edema warm dry well perfused oriented appropriate ICD10 Worksheet Patient Problems: Problems Problem Status Onset Knee arthropathy Acute Congestive heart failure Acute Hypotension Acute Bradycardia Acute
[2018-04-09] MEDS: ATORVASTATIN CALCIUM 40 MG TAB PO SCH (21:33)
--- NOTE | 2018-04-09 21:56 | PDMN ---
Medical Necessity Medical necessity: Pt meets INPT criteria per MD as of 04/09/18 (est. LOS >2 MN for ongoing eval/mgmt of hypotension/bradycardia, plan for cardiac resynchronization therapy; chronic systolic heart failure, p afib).
[2018-04-10] MEDS: PANTOPRAZOLE SODIUM 40 MG TAB PO SCH (09:38)
[2018-04-10] MEDS: FAMOTIDINE 20 MG TAB PO SCH ×2 (09:38→20:58)
[2018-04-10] MEDS: ASPIRIN 81 MG CHEWABLE TAB PO SCH (09:38)
[2018-04-10] MEDS: buPROPion 75 MG TAB PO SCH (09:38)
[2018-04-10] MEDS: FLUoxetine 10 MG CAP PO SCH (09:38)
[2018-04-10] MEDS: TAMSULOSIN HCL 0.4 MG CAP PO SCH (09:38)
[2018-04-10] MEDS: OMEGA-3 FATTY ACIDS 1,000 MG CAP PO SCH (09:38)
[2018-04-10] MEDS: LISINOPRIL 2.5 MG TAB PO SCH (09:38)
--- NOTE | 2018-04-10 10:29 | PDCARCONS ---
Cardiology Consult Reason for Consult: Bradycardia Chief Complaint: Bradycardia, lightheadedness Requesting Physician: Hospitalist team, Cyndi Patel History of Present Illness: 68-year-old male with history of nonischemic cardiomyopathy diagnosed in early January. He was admitted this time with symptoms of lightheadedness associated with heart rates in the 30s and 40s. This temporally coincided with him taking Viagra. His beta-blockers have been held. His heart rate has improved since he stopped his beta-blockers. I met with him and his on 2 [place] telemetry floor today. I am familiar with them since his is my patient. History Information - Allergies/Home Medication List Allergies/Adverse Reactions: Penicillins Allergy (Intermediate, Verified 04/08/18 10:19) Rash Home Medications: Apixaban [Eliquis] 5 mg PO BID@01/26/18 [Last Taken 04/08/18 07:00] Esomeprazole Mag Trihydrate [Nexium] 40 mg PO DAILY@01/26/18 [Last Taken ] FLUoxetine [Prozac 10 MG (*)] 10 mg PO DAILY 01/26/18 [Last Taken 04/07/18] Ondansetron [Ondansetron Odt] 4 mg PO Q8 PRN 01/26/18 [Last Taken Unknown] Ranitidine HCl [Zantac] 300 mg PO BIDMEAL 01/26/18 [Last Taken 04/07/18 18:00] Tamsulosin HCl [Flomax 0.4 MG (*)] 0.4 mg PO DAILY 01/26/18 [Last Taken 04/07/18 ] buPROPion [Wellbutrin 75mg (*)] 75 mg PO DAILY 01/26/18 [Last Taken 04/07/18] Amiodarone HCl [Pacerone (*)] 200 mg PO DAILY@04/08/18 [Last Taken 04/08/18] Cyanocobalamin [Vitamin B12 (*)] 1,000 mcg PO DAILY 04/08/18 [Last Taken ] Furosemide [Lasix 40 MG (*)] 40 mg PO DAILY@04/08/18 [Last Taken 04/08/18] Metoprolol Succinate Xr [Toprol Xl 50 mg (*)] 50 mg PO DAILY 04/08/18 [Last Taken 04/07/18] [place]-3 Fatty Acids [Fish Oil 1000 mg (*)] 1,000 mg PO DAILY 04/08/18 [Last Taken 04/07/18] Past Medical History: - Social History Smoking Status: Never smoked Age in Years: [age] Sex: Male Congestive Heart Failure History: Yes Physical Exam Physical Exam: Temp Pulse Resp BP Pulse Ox 36.7 C 65 13 94/53 L 96 04/10/18 08:00 04/10/18 08:00 04/10/18 08:00 04/10/18 08:00 04/10/18 08:00 O2 (L/minute) 3 Constitutional: no apparent distress, appears nourished Eyes: PERRL, EOMI Ears, Nose, Mouth, Throat: moist mucous membranes Cardiovascular: regular rate and rhythym, systolic murmur Respiratory: no respiratory distress Gastrointestinal: normoactive bowel sounds, soft, non-tender abdomen Musculoskeletal: full muscle strength Neurologic: AAOx3, sensation intact bilaterally Psychiatric: interacting appropriately, not anxious, not encephalopathic Lab and Imaging 04/09/18 03:41 04/09/18 03:41 WBC 5.61 10^3/uL (3.80-9.50) 04/09/18 03:41 RBC 4.97 10^6/uL (4.40-6.38) 04/09/18 03:41 Hgb 13.5 g/dL (13.7-17.5) L 04/09/18 03:41 POC Hgb 15.6 gm/dL (13.7-17.5) 04/08/18 10:44 Hct 42.9 % (40.0-51.0) 04/09/18 03:41 POC Hct 46 % (40-51) 04/08/18 10:44 MCV 86.3 fL (81.5-99.8) 04/09/18 03:41 MCH 27.2 pg (27.9-34.1) L 04/09/18 03:41 MCHC 31.5 g/dL (32.4-36.7) L 04/09/18 03:41 RDW 19.1 % (11.5-15.2) H 04/09/18 03:41 Plt Count 129 10^3/uL (150-400) L 04/09/18 03:41 MPV 10.2 fL (8.7-11.7) 04/09/18 03:41 Neut % (Auto) 69.6 % (39.3-74.2) 04/09/18 03:41 Lymph % (Auto) 15.9 % (15.0-45.0) 04/09/18 03:41 Schleicher % (Auto) 12.1 % (4.5-13.0) 04/09/18 03:41 Eos % (Auto) 1.8 % (0.6-7.6) 04/09/18 03:41 Baso % (Auto) 0.4 % (0.3-1.7) 04/09/18 03:41 Nucleat RBC Rel Count 0.0 % (0.0-0.2) 04/09/18 03:41 Absolute Neuts (auto) 3.91 10^3/uL (1.70-6.50) 04/09/18 03:41 Absolute Lymphs (auto) 0.89 10^3/uL (1.00-3.00) L 04/09/18 03:41 Absolute Monos (auto) 0.68 10^3/uL (0.30-0.80) 04/09/18 03:41 Absolute Eos (auto) 0.10 10^3/uL (0.03-0.40) 04/09/18 03:41 Absolute Basos (auto) 0.02 10^3/uL (0.02-0.10) 04/09/18 03:41 Absolute Nucleated RBC 0.00 10^3/uL (0-0.01) 04/09/18 03:41 Immature Gran % 0.2 % (0.0-1.1) 04/09/18 03:41 Immature Gran # 0.01 10^3/uL (0.00-0.10) 04/09/18 03:41 POC Sodium 140 mEq/L (135-145) 04/08/18 10:44 Sodium 142 mEq/L (135-145) 04/09/18 03:41 POC Potassium 4.2 mEq/L (3.3-5.0) 04/08/18 10:44 Potassium 4.5 mEq/L (3.3-5.0) 04/09/18 03:41 POC Chloride 103 mEq/L (97-110) 04/08/18 10:44 Chloride 104 mEq/L (97-110) 04/09/18 03:41 Carbon Dioxide 30 mEq/l (22-31) 04/09/18 03:41 Anion Gap 8 mEq/L (8-16) 04/09/18 03:41 POC BUN 18 mg/dL (7-23) 04/08/18 10:44 BUN 18 mg/dL (7-23) 04/09/18 03:41 Creatinine 1.1 mg/dL (0.7-1.3) 04/09/18 03:41 POC Creatinine 1.2 mg/dL (0.7-1.3) 04/08/18 10:44 Estimated GFR > 60 04/09/18 03:41 Glucose 98 mg/dL (70-100) 04/09/18 03:41 POC Glucose 97 mg/dL (70-100) 04/08/18 10:44 Calcium 9.0 mg/dL (8.5-10.4) 04/09/18 03:41 POC Troponin I 0.01 ng/mL (0.00-0.08) 04/08/18 11:00 Troponin I < 0.012 ng/mL (0.000-0.034) 04/09/18 03:41 NT-Pro-B Natriuret Pep 1030 pg/mL (0-125) H 04/08/18 10:39 TSH 6.470 uIU/mL (0.465-4.680) H 04/08/18 10:40 Free T4 0.96 ng/dL (0.59-2.19) 04/08/18 10:40 Free T3 3.34 pg/mL (2.77-5.27) 04/08/18 10:40 Visualized and Interpreted Chest x-ray results: Yes EKG additional interpertation: Normal sinus rhythm, right bundle-branch block, left anterior fascicular block, QRS duration 150 milliseconds A/P Assessment: 1. Intermittent bradycardia with beta-fortino therapy 2. Nonischemic cardiomyopathy 3. Mild mitral regurgitation 4. Sleep apnea 5. Atrial fibrillation Plan: 68-year-old male with nonischemic cardiomyopathy. NYHA class 2-3 symptoms. QRS duration 150 milliseconds. LV ejection fractions remains at 15-20% despite optimal medical therapy. He is presenting with bradycardia which temporally coincided with him taking Viagra. This is unlikely related to the Viagra and is likely related to beta- fortino therapy. He understands that given his cardiomyopathy needs to take beta-blockers and Ja inhibitors on a chronic basis. I am going to start him on low-dose beta-blockers today and observe him over the next 1-2 days. If he develops symptomatic bradycardia again, we will move forward with biventricular ICD implantation given that he meets criteria for this. Risks of the procedure including , mi, CVA, cardiac tamponade, pneumothorax , DVT, pulmonary embolism, phrenic nerve stimulation, lead dislodgement and need for lead repositioning, need for emergency heart surgery, renal failure, anesthesia related complications etc. were discussed with him. He is tentatively scheduled for Bi V ICD on Thursday. We will have low threshold for moving forward with Bi V ICD if he had of the bradycardia over the next 48 hr upon resumption of beta-fortino therapy. In anticipation of procedure, will hold his oral anticoagulation. Atrial fibrillation is well controlled on amiodarone. Consider PV isolation or AV node ablation in the future depending on how he responds to current therapy.
[2018-04-10] MEDS: CARVEDILOL 6.25 MG TAB PO SCH ×2 (11:10→17:57)
--- NOTE | 2018-04-10 14:38 | HOSPPROG ---
Hospitalist Progress Note Assessment/Plan: 68 yo M with hx of systolic HF, a fib, colon cancer admitted with hypotension and bradycardia # hypotension/bradycardia: holding BB/amiodarone but still continued, some of the hypotension likely was driven by taking viagra however bradycardia more likely driven by BB therapy. Plan is to resume low dose BB and monitor in house. If symptomatic bradycardia recurs will need bi-V ICD placed, likely on Thursday # chronic systolic heart failure: with EF on most recent echo slighly lower than prior now at 15%, CXR personally reveiwed without e/o significant pulmonary edema and does not appear volume overloaded on exam. As above # p afib: on personal review of ecg noted to be in a sinus sarah with associated RBBB, rates low on arrival on amiodarone/bb. Eliquis held for possible ICD placement. Resumed on bb today and monitoring # hx of colon cancer # manuel: cpap # htn: BP remains minimally low, continueing very low dose lisinopril # elevated TSH: with normal t4/t3, repeat TFTs in 6 weeks # IP status, will need > 48 hours stay for eval/mgmt of above Care plan reviewed with cardiology as above. Further hx obtained from patients as above. y. Subjective: no signficant overnight events, patient slightly frustrated that he is needing to remain in the hospital longer Objective: Vital Signs Temp Pulse Resp BP Pulse Ox 36.5 C 74 15 93/56 L 97 04/10/18 11:00 04/10/18 11:00 04/10/18 11:00 04/10/18 11:00 04/10/18 11:00 04/09/18 04/10/18 04/11/18 05:59 05:59 05:59 Intake Total 2450 Output Total 1750 Balance 700 awake alert nad anicteric op clear sarah regular cta b soft nt nd trace ble edema warm dry well perfused oriented appropriate ICD10 Worksheet Patient Problems: Problems Problem Status Onset Bradycardia Acute Hypotension Acute Congestive heart failure Acute Knee arthropathy Acute
[2018-04-10] MEDS: ATORVASTATIN CALCIUM 40 MG TAB PO SCH (20:58)
[2018-04-11] MEDS: ASPIRIN 81 MG CHEWABLE TAB PO SCH (07:53)
[2018-04-11] MEDS: PANTOPRAZOLE SODIUM 40 MG TAB PO SCH (07:53)
[2018-04-11] MEDS: TAMSULOSIN HCL 0.4 MG CAP PO SCH (07:53)
[2018-04-11] MEDS: buPROPion 75 MG TAB PO SCH (07:53)
[2018-04-11] MEDS: FLUoxetine 10 MG CAP PO SCH (07:53)
[2018-04-11] MEDS: OMEGA-3 FATTY ACIDS 1,000 MG CAP PO SCH (07:53)
[2018-04-11] MEDS: LISINOPRIL 2.5 MG TAB PO SCH (07:53)
[2018-04-11] MEDS: CARVEDILOL 6.25 MG TAB PO SCH ×2 (07:54→17:41)
[2018-04-11] MEDS: FAMOTIDINE 20 MG TAB PO SCH ×2 (07:54→21:03)
--- NOTE | 2018-04-11 08:06 | SOAPPROG ---
[facility] Progress Note Assessment/Plan: Assessment: 1. Nonischemic cardiomyopathy 2. Atrial fibrillation Plan: Resume beta-fortino yesterday. Tolerating low-dose well. Will need maximally tolerated doses of beta-blockers for nonischemic cardiomyopathy. Will check echocardiogram today. If LVEF remains less than 35%, plan for Bi V ICD tomorrow afternoon. 04/11/18 08:05 Subjective: Feels well, mild dyspnea on exertion Objective: Vital Signs Temp Pulse Resp BP Pulse Ox 36.7 C 54 L 11 L 113/55 L 97 04/11/18 07:50 04/11/18 07:50 04/11/18 07:50 04/11/18 07:50 04/11/18 07:50 04/09/18 04/10/18 04/11/18 11:59 11:59 11:59 Intake Total 2450 1800 Output Total 1750 900 Balance 700 900 - Time Spent With Patient Time Spent With Patient: 20 min, more than 50% counseling - Pending Discharge Pending Discharge Within 24 Hours: No Physical Exam - Physical Exam Respiratory: lungs clear Cardiac/Chest: regular rate, rhythm, systolic murmur ICD10 Worksheet Patient Problems: Problems Problem Status Onset Knee arthropathy Acute Congestive heart failure Acute Hypotension Acute Bradycardia Acute
[2018-04-11] MEDS ORDERED: PERFLUTREN LIPID MICROSPHERES 1.1 MG/ML VIAL IV ONE (10:56)
--- NOTE | 2018-04-11 13:43 | HOSPPROG ---
Hospitalist Progress Note Assessment/Plan: 68 yo M with hx of systolic HF, a fib, colon cancer admitted with hypotension and bradycardia # hypotension/bradycardia: in the setting of bb/amiodarone, improved with dc of both, back on low dose bb and tolerating although again bradycardic today # chronic systolic heart failure: with EF on most recent echo slighly lower than prior now at 15%, CXR personally reveiwed without e/o significant pulmonary edema and does not appear volume overloaded on exam. Repeat echo today, if EF still < 30% will get Bi V ICD in am. Discussed with patient and his # p afib: on personal review of ecg noted to be in a sinus sarah with associated RBBB, rates low on arrival on amiodarone/bb. Eliquis held for possible ICD placement. Resumed on bb and slightly bradycardic but relatively asymptomatic # hx of colon cancer # manuel: continue cpap # htn: BP remains minimally low, continuing very low dose lisinopril # elevated TSH: with normal t4/t3, repeat TFTs in 6 weeks # IP status, will need > 48 hours stay for eval/mgmt of above Care plan reviewed patients as above. Subjective: no significant overnight events, patient feels well today, he is eager to have procedure complete tomorrow Objective: Vital Signs Temp Pulse Resp BP Pulse Ox 36.6 C 48 L 16 106/65 96 04/11/18 12:00 04/11/18 12:00 04/11/18 12:00 04/11/18 12:00 04/11/18 12:00 04/10/18 04/11/18 04/12/18 05:59 05:59 05:59 Intake Total 2450 1800 400 Output Total 1750 900 300 Balance 700 900 100 awake alert nad anicteric op clear sarah regular cta b soft nt nd trace ble edema warm dry well perfused oriented appropriate ICD10 Worksheet Patient Problems: Problems Problem Status Onset Bradycardia Acute Hypotension Acute Congestive heart failure Acute Knee arthropathy Acute
--- NOTE | 2018-04-11 14:37 | ECHO ---
[email or web address] [address] [address] Main: [phone] Fax: Transthoracic Echocardiogram Name: SANDY GALLARDO MR#: [id number] Study Date: 04/11/2018 Study Time: 10:36 AM Date of : 1950 Age: 68 year(s) Height: 172.7 cm (68 in.) Weight: 103.87 kg (229 lb.) BSA: 2.16 m2 Gender: Male Examination: Echo with Contrast Indication: Nonischemic cardiomyopathy Image Quality: Adequate Contrast: I.V. dose of Definity was administered to improve endocardial border definition. Requested by: Donald Benavides BP: 113 mmHg/55 mmHg Heart Rate: Rhythm: Indication: Nonischemic cardiomyopathy Procedure Staff Inclusion Teacher: Janeth Mendoza RDCS Reading Physician: Gui Tracy MD Requesting Provider: Conclusions: Moderately to severely dilated left ventricle. Mild concentric LV hypertrophy. Severely reduced systolic LV function. The ejection fraction is visually estimated to be 20 %. No thrombus in left ventricle. Mildly dilated right ventricle. Normal RV function. The left atrium is severely dilated. The right atrium is severely dilated. The pulmonary artery pressure is normal. No pericardial effusion. Measurements: Chambers Valvular Assessment AV/MV Valvular Assessment TV/PV Normal Normal Normal Name Value Range Name Value Range Name Value Range Ao Karen (2D): 3.6 cm (1.4 cm-2.6 AV Vmax: 1.30 m/s (1 m/s-1.7 PV Vmax: 0.94 m/s (0.6 m/s-0.9 cm) m/s) m/s) IVSd (2D): 1.2 cm (0.6 cm-1.1 AV maxP mmHg ( - ) PV PGmax: 4 mmHg ( - ) cm) AV meanP mmHg ( - ) LVDd (2D): 7.4 cm (4.2 cm-5.9 NIKKI (VTI): 2.1 cm ( - ) cm) MV E Vmax: 0.62 m/s ( - ) LVDs (2D): 5.7 cm (2.1 cm-4 MV A Vmax: 0.78 m/s ( - ) cm) MV E/A: 0.79 ( - ) LVPWd (2D): 1.2 cm (0.6 cm-1 cm) MV PHT: 0.129 s ( - ) LVOTd 2.4 cm 2.4 cm mm MVA (PHT): 1.7 s ( - ) LVEF (MOD4): 24 % (>=55 %) Visual EF: 20 % Patient: SANDY GALLARDO Study Date: 04/11/2018 Page 1 of 2 10:36 AM RVDd(2D): 4.2 cm (1.9 cm-3.8 cmmm) Continued Measurements: Chambers Valvular Assessment AV/MV Name Value Name Value LADs: 4.8 cm MV DecTime: 398 m/s LADs Lon.2 cm MV E' Septal: 0.04 m/s LA Area: 34.3 cm2 MV E/E' Septal: 16.80 LA Volume: 132 ml MV E/E' Lateral: 8.10 LA Volume Index: 61.1 ml/m2 RA Area: 27.9 cm2 Additional Vessels Name Value Ao Ascendin.7 cm Findings: Left Ventricle: Moderately to severely dilated left ventricle. Mild concentric LV hypertrophy. Severely reduced systolic LV function. The ejection fraction is visually estimated to be 20 %. No regional wall motion abnormality. Diastolic dysfunction is present. . No thrombus in left ventricle. Reduced LV function. Definity was used to improve endocardial border definition and rule out thrombus. Right Ventricle: Mildly dilated right ventricle. Normal RV function. Left Atrium: The left atrium is severely dilated. Right Atrium: The right atrium is severely dilated. Mitral Valve: The mitral valve is normal in appearance and function. Mild mitral valve regurgitation is present. No mitral stenosis is present. Aortic Valve: The aortic valve is normal in appearance and function. Mild aortic valve regurgitation is present. No aortic valve stenosis is present. Tricuspid Valve: The tricuspid valve is normal in appearance and function. Mild tricuspid regurgitation is present. The pulmonary artery pressure is normal. Pulmonic Valve: The pulmonic valve is normal in appearance and function. Mild pulmonic valve regurgitation is noted. Aorta: The aorta is normal. Normal size aortic root measuring 3.6 cm. Normal size ascending aorta measuring 3.7 cm. IVC: The IVC is normal sized. Subcostal not well visualized. Pericardium: No pericardial effusion. (No Signature Object) Patient: SANDY GALLARDO Study Date: 04/11/2018 Page 2 of 2 10:36 AM [id number]
[2018-04-11] MEDS: ATORVASTATIN CALCIUM 40 MG TAB PO SCH (21:03)
[2018-04-12 04:10] LABS: PLATELET COUNT 128 10^3/uL (150-400)
[2018-04-12 04:18] LABS: INR 1.17 (0.83-1.16); PROTIME(PATIENT) 15.1 SEC (12.0-15.0)
[2018-04-12] MEDS ORDERED: VANCOMYCIN PHARMACY TO DOSE MISC ONE (06:00)
[2018-04-12] MEDS ORDERED: VANCOMYCIN 1.5 GM in NS 250 ML IV ONE (06:00)
[2018-04-12] MEDS ORDERED: BACITRACIN IRRIGATION/NS 50,000 UNITS/1,000 ML BTL IRR ONE (06:00)
[2018-04-12] MEDS: FAMOTIDINE 20 MG TAB PO SCH ×2 (08:54→20:02)
[2018-04-12] MEDS: CARVEDILOL 6.25 MG TAB PO SCH ×3 (08:54→20:02)
[2018-04-12] MEDS: buPROPion 75 MG TAB PO SCH (08:54)
[2018-04-12] MEDS: PANTOPRAZOLE SODIUM 40 MG TAB PO SCH (08:57)
[2018-04-12] MEDS: OMEGA-3 FATTY ACIDS 1,000 MG CAP PO SCH (08:57)
[2018-04-12] MEDS: ASPIRIN 81 MG CHEWABLE TAB PO SCH (08:57)
[2018-04-12] MEDS: LISINOPRIL 2.5 MG TAB PO SCH ×2 (08:57→09:03)
[2018-04-12] MEDS: TAMSULOSIN HCL 0.4 MG CAP PO SCH ×2 (08:58→09:03)
[2018-04-12] MEDS: FLUoxetine 10 MG CAP PO SCH (08:58)
[2018-04-12] MEDS ORDERED: NS 1,000 ML IV ONE (09:25)
--- NOTE | 2018-04-12 09:49 | CPEKG ---
Heart Rate: 42 RR Interval: 1429 P-R Interval: 204 QRSD Interval: 154 QT Interval: 560 QTC Interval: 468 P [place]: 2 QRS [place]: -72 T Wave [place]: 179 EKG Severity - ABNORMAL ECG - EKG Impression: SINUS BRADYCARDIA EKG Impression: LEFT ANTERIOR FASCICULAR BLOCK EKG Impression: RIGHT BUNDLE BRANCH BLOCK EKG Impression: POSSIBLE ANTEROSEPTAL INFARCT, OLD VERSUS RELATED TO LAFB Electronically Signed By: Josef Petersen 12-Apr-2018 10:50:20
--- NOTE | 2018-04-12 11:01 | PDGENHP ---
History & Physical Chief Complaint: fatigue, dizziness History of Present Illness: nicmp diagnosed 3 m o ago Relevant Physical Exam: s1s2 rrr sm. cta. ao3 Cardiorespiratory Assessment: NICMP on medical Rx x 3 mo. Not tolerating high dose BB due to bradycardia, needs pacing. QRSd >130 ms with bifascicular block , NYHA Class II-III. Meets criteria for BIVICD. dw his CHF physician Dr. Henderson who agrees
[2018-04-12] MEDS ORDERED: fentaNYL 100 MCG/2 ML INJ ONE (13:33)
[2018-04-12] MEDS ORDERED: ETOMIDATE 20 MG/10 ML VIAL ONE (13:33)
--- NOTE | 2018-04-12 13:35 | ASMTCMCOM ---
CM Note CM Note Notes: 04/12/2018 Case Management Note Discussed pt during rounds this morning. Pt to have Bi V ICD today. See previous case management note. Case Management d/c poc: remains home with [facility] RN. Case Management to follow. Date Signed: 04/12/2018 01:34 PM Electronically Signed By:Shruthi Granado RN
[2018-04-12] MEDS ORDERED: LIDOCAINE 1% 300 MG/30 ML SDV ONE (14:01)
[2018-04-12] MEDS ORDERED: IOPAMIDOL (ISOVUE-300) 100 ML BTL ONE (14:01)
[2018-04-12] MEDS ORDERED: BUPIVACAINE 0.75% 10 ML SDV ONE (14:01)
--- NOTE | 2018-04-12 14:16 | PDANEPAE ---
ANE History of Present Illness patient presents for Biventricular pacemaker ICD placement ANE Past Medical History - Cardiovascular History Hx Hypertension: Yes Hx Arrhythmias: Yes Hx Chest Pain: No Hx Coronary Artery / Peripheral Vascular Disease: No Hx CHF / Valvular Disease: Yes Hx Palpitations: Yes - Pulmonary History Hx COPD: No Hx Asthma/Reactive Airway Disease: No Hx Recent Upper Respiratory Infection: Yes Hx Oxygen in Use at Home: Yes O2 in Use at Home (L/minute): 2 Hx Sleep Apnea: Yes Pulmonary History Comment: manuel dx - BIPAP- instructed to bring to hospital - Neurologic History Hx Cerebrovascular Accident: No Hx Seizures: No Hx Dementia: No - Endocrine History Hx Diabetes: No Endocrine History Comment: type 2 well controlled with diet and exercise - Renal History Hx Renal Disorders: Yes Renal History Comment: hx of turp. vasectomy - Liver History Hx Hepatic Disorders: No - Neurological & Psychiatric Hx Hx Neurological and Psychiatric Disorders: Yes Neurological / Psychiatric History Comment: depression- BUPROPIONE - Cancer History Hx Cancer: Yes Cancer History Comment: COLON CA - Congenital Disorder History Hx Congenital Disorders: No - GI History Hx Gastrointestinal Disorders: Yes Gastrointestinal History Comment: GERD. COLON CA IN PAST. barretts esophagus - Other Health History Other Health History: NEG - Chronic Pain History Chronic Pain: Yes (bilateral knees) - Surgical History Prior Surgeries: 09/19/14 right tka. turp. vasectomy. COLON RESECTION FOR CA 1996 ANE Review of Systems Review of Systems: - Exercise capacity Exercise capacity: <4 METS, >=4 METS ANE Patient History - Allergies Allergies/Adverse Reactions: Penicillins Allergy (Intermediate, Verified 04/08/18 10:19) Rash - Home Medications Home medications: home medication list seen and reviewed Home Medications: Apixaban [Eliquis] 5 mg PO BID@,01/26/18 [Last Taken 04/08/18 07:00] Esomeprazole Mag Trihydrate [Nexium] 40 mg PO DAILY@07 01/26/18 [Last Taken ] FLUoxetine [Prozac 10 MG (*)] 10 mg PO DAILY 01/26/18 [Last Taken 04/07/18] Ondansetron [Ondansetron Odt] 4 mg PO Q8 PRN 01/26/18 [Last Taken Unknown] Ranitidine HCl [Zantac] 300 mg PO BIDMEAL 01/26/18 [Last Taken 04/07/18 18:00] Tamsulosin HCl [Flomax 0.4 MG (*)] 0.4 mg PO DAILY 01/26/18 [Last Taken 04/07/18 ] buPROPion [Wellbutrin 75mg (*)] 75 mg PO DAILY 01/26/18 [Last Taken 04/07/18] Amiodarone HCl [Pacerone (*)] 200 mg PO DAILY@04/08/18 [Last Taken 04/08/18] Cyanocobalamin [Vitamin B12 (*)] 1,000 mcg PO DAILY 04/08/18 [Last Taken ] Furosemide [Lasix 40 MG (*)] 40 mg PO DAILY@04/08/18 [Last Taken 04/08/18] Metoprolol Succinate Xr [Toprol Xl 50 mg (*)] 50 mg PO DAILY 04/08/18 [Last Taken 04/07/18] [place]-3 Fatty Acids [Fish Oil 1000 mg (*)] 1,000 mg PO DAILY 04/08/18 [Last Taken 04/07/18] - NPO status NPO Status: no food or drink >8 hours - Anes Hx Anes Hx: no prior problems - Smoking Hx Smoking Status: Never smoked - Family Anes Hx Family Hx Anesthesia Complications: NEG ANE Labs/Vital Signs - Labs Result Diagrams: 04/12/18 03:20 04/12/18 03:20 - Vital Signs Blood Pressure: 103/50 Heart Rate: 45 Respiratory Rate: 12 O2 Sat (%): 96 Height: 172.72 cm Weight: 104.2 kg ANE Physical Exam - Airway Neck exam: FROM Mallampati Score: Class 1 Mouth exam: dentures - Pulmonary Pulmonary: no respiratory distress - Cardiovascular Cardiovascular: regular rate and rhythym - ASA Status ASA Status: IV ANE Anesthesia Plan Anesthesia Plan: general endotracheal anesthesia (RBA discussed)
[2018-04-12] MEDS ORDERED: DEXAMETHASONE 4 MG/ML VIAL ONE (14:18)
[2018-04-12] MEDS ORDERED: ONDANSETRON 4 MG/2 ML VIAL ONE (14:18)
[2018-04-12] MEDS ORDERED: SUCCINYLCHOLINE CHLORIDE 200 MG/10 ML SYR IVP ONE (14:19)
[2018-04-12] MEDS ORDERED: LIDOCAINE 2% 5 ML SDV ONE (14:19)
[2018-04-12] MEDS ORDERED: DESFLURANE 240 ML BOTTLE IH ONE (14:24)
[2018-04-12] MEDS ORDERED: ePHEDrine SULFATE 25 MG/5 ML SYR ONE ×2 (14:26→15:23)
[2018-04-12] MEDS ORDERED: MIDAZOLAM 2 MG/2 ML VIAL ONE (14:35)
--- NOTE | 2018-04-12 14:55 | HOSPPROG ---
Hospitalist Progress Note Assessment/Plan: 68 yo M with hx of systolic HF, a fib, colon cancer admitted with hypotension and bradycardia # hypotension/bradycardia: in the setting of bb/amiodarone, improved with dc of both, back on low dose bb and tolerating although again bradycardic today # chronic systolic heart failure: with repeat EF of 20% so plan for BiV ICD today # p afib: on personal review of ecg noted to be in a sinus sarah with associated RBBB, rates low on arrival on amiodarone/bb. Eliquis held for possible ICD placement. Resumed on bb and slightly bradycardic but relatively asymptomatic # hx of colon cancer # manuel: continue cpap # htn: BP remains minimally low, continuing very low dose lisinopril # elevated TSH: with normal t4/t3, repeat TFTs in 6 weeks # IP status, will need > 48 hours stay for eval/mgmt of above Subjective: no acute overnight events, off for bivicd today Objective: Vital Signs Temp Pulse Resp BP Pulse Ox 36.5 C 45 L 12 103/50 L 96 04/12/18 11:13 04/12/18 14:16 04/12/18 14:16 04/12/18 14:16 04/12/18 14:16 Laboratory Results 04/12/18 03:20 04/12/18 03:20 04/11/18 04/12/18 04/13/18 05:59 05:59 05:59 Intake Total 1800 1380 Output Total 900 1950 Balance 900 -570 PT 15.1 SEC (12.0-15.0) H 04/12/18 03:20 INR 1.17 (0.83-1.16) H 04/12/18 03:20 awake alert nad anicteric op clear sarah regular cta b soft nt nd trace ble edema warm dry well perfused oriented appropriate ICD10 Worksheet Patient Problems: Problems Problem Status Onset Bradycardia Acute Hypotension Acute Congestive heart failure Acute Knee arthropathy Acute
[2018-04-12] MEDS ORDERED: SUGAMMADEX SODIUM 200 MG/2 ML VIAL IVP ONE (15:27)
[2018-04-12] MEDS ORDERED: PROPOFOL 200 MG/20 ML VIAL ONE (16:03)
[2018-04-12] MEDS ORDERED: ONDANSETRON 4 MG/2 ML VIAL IVP PRN (16:30)
[2018-04-12] MEDS ORDERED: NALOXONE HCL 0.4 MG/ML INJ IVP PRN (16:30)
[2018-04-12] MEDS ORDERED: LR 500 ML IV PRN (16:30)
--- NOTE | 2018-04-12 16:51 | EPPROC ---
Electrophysiology Procedure Note: PROCEDURE PERFORMED: 1. Implantation of an A-BiV Implantable Cardioverter Defibrillator 2. Subclavian vein angiography 3. Fluoroscopy 4. EP study induction of ventricular fibrillation and defibrillation testing INDICATION: Nonischemic cardiomyopathy, bifascicular block, NYHA Class II-III PROCEDURE NOTE: Patient presented to the cardiac catheterization laboratory in a fasting, post absorptive state. Dr. Martin administered general anesthesia. The left infraclavicular area was prepped and draped in the usual sterile fashion. Lidocaine plus bupivacaine was used for local anesthesia. Left subclavian venography was performed by injection of iodinated contrast into the left antecubital vein. This was done to assure patency of the vein and also to assess for any anatomical aberrations. Using a combination of blunt and sharp dissection and electrocautery, the dissection was carried down to the prepectoral fascia. A pocket was made in this anatomical plane. All bleeding was controlled with electrocautery. The pocket was packed with gauze soaked in antibiotic solution. Fluoroscopy was utilized during the entire procedure for venous access and placement of the leads Using a direct stick technique the left extra thoracic axillary vein was accessed with 3 sticks using the modified Seldinger technique. Placement of the guide wires into the venous system was confirmed by low pressure blood return and also by visualizing the guide wires advancing into the inferior vena cava. A purse string suture was applied around the guide wires. Two #7 Macedonian sheaths were advanced under fluoroscopic guidance over the guide wires. An active fixation ventricular ICD lead was advanced into the right ventricular apex and screwed in place. An active fixation atrial lead was advanced into the right atrial appendage and screwed in place. The peel away sheaths were removed. Pacing thresholds, sensing parameters and lead impedances were measured. There was no diaphragmatic stimulation at maximum output. The leads were sutured to the prepectoral fascia with 3 nonabsorbable sutures. A 9 Macedonian sheath was advanced over the guide wire into the subclavian vein. Using a [employer] delivery system the coronary sinus ostium was engaged. Occlusion retrograde coronary sinus angiography was performed in 2 views. A coronary sinus quadripolar lead was advanced into the coronary sinus. An angioplasty wire was advanced through the lead and advanced into the mid portion of the lateral branch of the coronary sinus. The lead was advanced over the angioplasty wire. Pacing threshold, sensing and impedance was determined. This branch had a superior and inferior bifurcation. The superior branch of the lateral branch had excellent threshold less than 1 volt at 0.5 milliseconds , however there was diaphragmatic stimulation even with 2-3 mm movement of the lead. Therefore we elected to place the lead in the inferior branch of the lateral branch. Distal electrodes did have diaphragmatic stimulation but proximal electrodes had threshold of 2.2 volts at 1 millisecond and no diaphragmatic stimulation at 10 volt. The delivery system and the 9 Fr sheath were peeled away. Again, pacing threshold, sensing and impedance was determined. There was no diaphragmatic stimulation at maximum output. The CS lead was secured to the prepectoral fascia with 3 nonabsorbable sutures. Pacing threshold and sensing parameters of the RA, RV and LV leads were checked again. The gauze packing was removed from the ICD pocket. The pocket was again inspected for any bleeding. The leads were attached to the pacemaker securely. The ICD was inserted into the pocket and secured in place with a nonabsorbable suture. Fluoroscopy was performed in THOMAS and KHMER planes to verify right sided placement of the leads. Also fluoroscopy of the pacemaker pocket was performed. Defibrillation threshold testing was not performed because of the patient's severe cardiomyopathy and hypotension. We did not think that the patient would tolerate defibrillation threshold testing. The ICD pocket was closed in 3 layers with absorbable monocryl sutures and freeman. Appropriate dressing was applied. The patient left the cardiac catheterization laboratory in stable condition. Defibrillation testing: Not done Serial Numbers: 1. Device Biotronik Ilivia serial [id number] 2. Atrial Lead Biotronik model 447881 serial number [id number] 3. Right Ventricular Lead Biotronik model 160504 serial number [id number] 4. Left Ventricular Lead Biotronik model 179854 serial [id number] Stimulation Thresholds & Impedance Measurements: 1. Atrial Lead P-wave 3.3 mV 1 volt 0.4 milliseconds 592 Ohms 2. Right Ventricular Lead R-wave 9.1 mV 0.5 volt at 0.4 milliseconds 578 Ohms 3. Left Ventricular Lead R-wave 20.1 mV 2.2 volts at 1.0 milliseconds 404 Ohms Goran Pacing Parameters: 1. Pacing mode DDD 2. Lower rate 70 beats per minute 3. Upper rate 130 beats per minute 4. Mode switch rate 160 milliseconds 5. AV delay 150 milliseconds Tachycardia therapy parameters: VF zone : Detection 222 bpm ATP while charging Subsequent therapies 40 Joule VT zone : Detection 182 bpm First therapy ATP x3 Second therapy 25 Joule Subsequent therapies 40 Joule Patient Problems: Problems Problem Status Onset Knee arthropathy Acute Congestive heart failure Acute Hypotension Acute Bradycardia Acute
--- NOTE | 2018-04-12 16:52 | POSTANESTH ---
Post Anesthetic Evaluation Cardiovascular Status: Similar to Pre-Op Cond Respiratory Status: Similar to Pre-op Cond. Level of Consciousness/Mental Status: Alert and Oriented Pain Control: Adequate, Prn Tx Ordered Nausea/Vomiting Control: Adequate, Prn Tx Ordered Complications Possibly Related to Anesthesia: None Noted
--- NOTE | 2018-04-12 17:33 | CPEKG ---
Heart Rate: 70 RR Interval: 857 P-R Interval: 153 QRSD Interval: 154 QT Interval: 520 QTC Interval: 562 P Proctor: 0 QRS Proctor: 241 T Wave Proctor: 77 EKG Severity - ABNORMAL ECG - EKG Impression: A-V DUAL-PACED RHYTHM WITH SOME INHIBITION Electronically Signed By: Donald Benavides 13-Apr-2018 08:53:47
[2018-04-12] MEDS: ACETAMINOPHEN 325 MG TAB PO PRN (17:41)
[2018-04-12] MEDS: APIXABAN 5 MG TAB PO SCH (20:02)
[2018-04-12] MEDS: ATORVASTATIN CALCIUM 40 MG TAB PO SCH (20:02)
[2018-04-13] MEDS: ACETAMINOPHEN 325 MG TAB PO PRN (03:28)
[2018-04-13 04:29] LABS: PLATELET COUNT 159 10^3/uL (150-400)
[2018-04-13] MEDS: APIXABAN 5 MG TAB PO SCH (06:01)
[2018-04-13 07:38] VITALS: BP 110/80
--- NOTE | 2018-04-13 08:50 | CPEKG ---
Heart Rate: 70 RR Interval: 857 P-R Interval: 146 QRSD Interval: 150 QT Interval: 512 QTC Interval: 553 P Harwick: 0 QRS Harwick: 248 T Wave Harwick: 97 EKG Severity - ABNORMAL ECG - EKG Impression: ATRIAL-VENTRICULAR DUAL-PACED RHYTHM Electronically Signed By: Donald Benavides 13-Apr-2018 08:53:02
--- NOTE | 2018-04-13 09:22 | PDDCSUM ---
Discharge Summary Discharge Summary: Dates of service 04/08-04/13/18 Consultations: cardiology Procedures performed: TTE, Bi-V ICD placement Hospital course by problem: 68 yo M with hx of systolic HF, a fib, colon cancer admitted with hypotension and bradycardia # hypotension/bradycardia: in the setting of bb/amiodarone, improved with dc of both, back on low dose bb and tolerating well # chronic systolic heart failure: with repeat EF of 20% despite nearly 3 months of appropriate medical therapy, s/p Bi-V ICD, will continue on lisinopril, BB, lasix and f/u with Dr. Henderson # p afib: on personal review of ecg noted to be in a sinus sarah with associated RBBB, rates low on arrival on amiodarone/bb. Juliaquwinston resumed today # hx of colon cancer # manuel: continue cpap # htn: BP remains minimally low but tolerating BB, ИВАН-i # elevated TSH: with normal t4/t3, repeat TFTs in 6 weeks Discharge to home in good condition f/u with Cardiology and PCP Items for follow up: --ongoing management of BP --repeat thyroid function tests in 6 weeks > 30 min spent in dc more than half in coordination of care
[2018-04-13] MEDS: LISINOPRIL 2.5 MG TAB PO SCH (09:30)
[2018-04-13] MEDS: FLUoxetine 10 MG CAP PO SCH (09:31)
[2018-04-13] MEDS: CARVEDILOL 6.25 MG TAB PO SCH (09:31)
[2018-04-13] MEDS: OMEGA-3 FATTY ACIDS 1,000 MG CAP PO SCH (09:31)
[2018-04-13] MEDS: FAMOTIDINE 20 MG TAB PO SCH (09:31)
[2018-04-13] MEDS: ASPIRIN 81 MG CHEWABLE TAB PO SCH (09:31)
[2018-04-13] MEDS: buPROPion 75 MG TAB PO SCH (09:32)
[2018-04-13] MEDS: PANTOPRAZOLE SODIUM 40 MG TAB PO SCH (09:32)
[2018-04-13] MEDS: TAMSULOSIN HCL 0.4 MG CAP PO SCH (09:33)
--- NOTE | 2018-04-13 10:42 | PDCARPN ---
Cardiology Progress Note Chief Complaint: s/p BIV ICD Assessment/Plan: Assessment/Plan : Bernard is a 68 y/o M with a history of NICMP with EF of 15-20%, SCHF, and PAF. He was admitted with hypotension and bradycardia. He is s/p Biotronik BIV ICD on 04/12 for resynchronization therapy. He is complaining of mild discomfort over the ICD site which is being treated with Tylenol. His device is working appropriately by ICD interrogation this morning. A CXR is negative for pneumothorax. He is on good medical therapy for his NICMP with Coreg and Lisinopril. Coreg can be titrated as he is able to tolerate it. He will continue Eliquis for CV prophylaxis in the setting of PAF. He has been given pacer precautions and will follow up for a wound check and pacer interrogation in two week. 04/13/18 10:44 Subjective: He is complaining of mild discomfort over his ICD site which improves with Tylenol. Reviewed/Discussed With: multidisciplinary team Objective: Vital Signs (8 Hrs) Temp Pulse Resp BP Pulse Ox 04/13/18 09:31 75 04/13/18 07:37 36.8 C 70 18 110/80 97 04/13/18 03:50 36.8 C 70 12 115/74 98 Intake/Output (24 Hrs) 04/12/18 04/13/18 04/14/18 05:59 05:59 05:59 Intake Total 1380 600 Output Total 1950 Balance -570 600 Intake: Oral (ml) 1380 600 IV Intake (ml) 0 0 Output: Urine (ml) 1950 Toilet 1150 Urinal 800 Other: Weight 104.2 kg Number of Voids Toilet 1 Number of Stools Toilet 1 Result Diagrams: 04/13/18 03:37 04/13/18 03:37 EKG: A-V paced - Physical Exam Constitutional: WDWN Cardiovascular: regular rate and rhythm, other (ICD site is clean intact without infection) Respiratory: clear to auscultate bilat, no crackles, no wheezes Skin: no edema Neurologic: AAOx3 ICD10 Worksheet Patient Problems: Problems Problem Status Onset Bradycardia Acute Hypotension Acute Congestive heart failure Acute Knee arthropathy Acute
--- NOTE | 2018-04-13 10:55 | PDIAF ---
- Diagnosis Code Status: Full Code - Medication Management Discharge Medications: Medications to Continue on Transfer Apixaban [Eliquis] 5 mg PO BID@01/26/18 [Last Taken 04/08/18 07:00] Esomeprazole Mag Trihydrate [Nexium] 40 mg PO DAILY@07 01/26/18 [Last Taken ] FLUoxetine [Prozac 10 MG (*)] 10 mg PO DAILY 01/26/18 [Last Taken 04/07/18] Ondansetron [Ondansetron Odt] 4 mg PO Q8 PRN 01/26/18 [Last Taken Unknown] Ranitidine HCl [Zantac] 300 mg PO BIDMEAL 01/26/18 [Last Taken 04/07/18 18:00] Tamsulosin HCl [Flomax 0.4 MG (*)] 0.4 mg PO DAILY 01/26/18 [Last Taken 04/07/18 ] buPROPion [Wellbutrin 75mg (*)] 75 mg PO DAILY 01/26/18 [Last Taken 04/07/18] Aspirin [Aspirin 81mg (*)] 81 mg PO DAILY #30 tab.chew 01/29/18 [Last Taken ] Atorvastatin Calcium [Lipitor 40 mg (*)] 40 mg PO HS #30 tab 01/29/18 [Last Taken 04/07/18] Lisinopril [Zestril 2.5 mg (*)] 2.5 mg PO DAILY #30 tab 01/29/18 [Last Taken ] Cyanocobalamin [Vitamin B12 (*)] 1,000 mcg PO DAILY 04/08/18 [Last Taken ] [place]onnells-3 Fatty Acids [Fish Oil 1000 mg (*)] 1,000 mg PO DAILY 04/08/18 [Last Taken 04/07/18] Carvedilol [Coreg (*)] 6.25 mg PO BIDMEAL #60 tab 04/13/18 [Last Taken Unknown] Furosemide [Lasix 20 MG (*)] 20 mg PO DAILY #30 tab 04/13/18 [Last Taken Unknown ] Discharge Medications: Refer to the Discharge Home Medication list for PRN reason. - Orders Services needed: Home Care, Registered Nurse Home Care Face to Face: I certify that this patient was under my care and that I had the required [id number] encounter meeting the encounter requirements on the discharge day. My findings support the fact that the patient is homebound as defined in Home Care Face to Face Continued: CMS Chapter 7 Medicare Benefits Manual 30.1.1 , The condition of the patient is such that there exists a normal inability to leave home and consequently, leaving home would require a considerable and taxing effort. Isolation Type: None Diet Recommendation: cardiac -low fat low salt Additional Instructions: ICD precautions discussed. You are scheduled for pacer interrogation and wound check on 04/28 at 11:30. You are scheduled to follow up with Dr. Henderson on 05/17 at 10:45 Please sign in 15 minutes prior to your scheduled appointment time. - Follow Up Care Current Providers and Referrals: Avery Henderson MD [Primary Care Provider] - As per Instructions
--- NOTE | 2018-04-13 12:05 | ASMTDCNOTE ---
Case Management Discharge Discharge Order Complete? Answers: Yes Patient to Obtain Answers: Independently Medications Transportation Arranged Answers: Family/Friends Discharge Comments Notes: Pt D/C'ed home. [facility] notified of D/C and they reported they will see him tomorrow. Date Signed: 04/13/2018 12:04 PM Electronically Signed By:Donna Medeiros
--- NOTE | 2018-04-15 16:26 | ASDISCHSUM ---
Discharge Information Plan Status:Home with Home Health Medically Cleared to Leave: Discharge Date:04/13/2018 11:56 AM D/C Disposition:Home Health Service ADT D/C Disposition:Home, Routine, Self-Care Projected Discharge Date:04/10/2018 11:00 AM Transportation at D/C:Family Discharge Delay Reason: Follow-Up Date:04/10/2018 11:00 AM Discharge Slot: Final Diagnosis: Placement Information Referral Type:*Home Health Care Services Referral ID:[id number] Provider Name:[facility] Address 1:[address] [address] Address 2: City:[place] Selection Factors: State:[place] Patient Contact Information Contact Name:MICHELL Relationship: Address:[address] City:[place] Alternate Phone: State/Zip Code:[place] [address] Email: Financial Information Financial Class:Medicare Advantage Plans Primary Plan Desc:[facility] [employer] Primary Plan Number:[id number] Secondary Plan Desc: Secondary Plan Number: Assessment Information LACE LACE Comorbidities - select Answers: Any tumor (including all that apply lymphoma or leukemia) Congestive heart failure Other Notes: Atrial fibrillation; Renal stones # of Emergency department Answers: 3-4 visits in the last 6 months Social determinants Answers: Mental health diagnosis (anxiety, depression, pers onality disorders, etc.) Score: 11 Date Signed: 04/08/2018 04:30 PM Electronically Signed By:Frances Ren [facility] CM Progress Note CM Note CM Note Notes: 04/09/2018 CAse Management Note Discussed pt during rounds this morning. Pt admitted for hypotension and bradycardia. Pacermaker/defibrillator to be placed tomorrow per pt. Met w/pt and this afternoon to discuss d/c needs. Pt is indepedent in ADL's. Pt is a former [employer] worker who is connected with [employer]. Pt utilized [facility] in January and requested re initiation of services. Notified [facility] over the phone and faxed referral via [employer]. [facility] accepted pt for home RN. Case Management d/c poc: home with [facility] RN for med management/teaching and wound care from upcoming procedure. Case Management to follow. Date Signed: 04/09/2018 02:55 PM Electronically Signed By:Shruthi Granado RN [facility] CM Progress Note CM Note CM Note Notes: 04/12/2018 Case Management Note Discussed pt during rounds this morning. Pt to have Bi V ICD today. See previous case management note. Case Management d/c poc: remains home with [facility] RN. Case Management to follow. Date Signed: 04/12/2018 01:34 PM Electronically Signed By:Shruthi Granado RN Case Management Discharge Plan Note Case Management Discharge Discharge Order Complete? Answers: Yes Patient to Obtain Answers: Independently Medications Transportation Arranged Answers: Family/Friends Discharge Comments Notes: Pt D/C'ed home. [facility] notified of D/C and they reported they will see him tomorrow. Date Signed: 04/13/2018 12:04 PM Electronically Signed By:Donna Medeiros Intervention Information Intervention Type:*IM-Signed Date of Service:04/13/2018 10:23 AM Patient Type:Inpatient Staff Member:Frances Ren Hours: Discipline: Severity: Comment:
== END 2018-04-13 11:56 | disposition home or self-care (01) | DRG 227 ==
LOC: F2W 12:15 → OBSVTOIN 04-09 14:50
PROVIDERS: ADMIT Student in an Organized Health Care Education/Training Program; ATTEND Student in an Organized Health Care Education/Training Program
DX: R00.1 Bradycardia, unspecified (principal); I11.0 Hypertensive heart disease with heart failure; I50.22 Chronic systolic (congestive) heart failure; I45.2 Bifascicular block; I95.9 Hypotension, unspecified; I48.0 Paroxysmal atrial fibrillation; G47.33 Obstructive sleep apnea (adult) (pediatric); E66.9 Obesity, unspecified; I42.0 Dilated cardiomyopathy; E11.9 Type 2 diabetes mellitus without complications; Z85.038 Personal history of other malignant neoplasm of large intestine; Z79.01 Long term (current) use of anticoagulants; Z66 Do not resuscitate
CPT/HCPCS: 82435-PO; 82565-PO; 82947-PO; 84132-PO; 84295-PO; 84481-90; 84484-PO; 84520-PO; 85014-PO; 97116-GP; 97161-GP; C1769; C1777; C1882; C1898; C1900; G0378; G8978-GP-CJ; G8979-GP-CH; G8979-GP-CI; G8980-GP-CH; J0330; J1100; J2250; J2405; J2704; J3010; J3370; Q9957; Q9967

== ENCOUNTER 2018-07-29 15:05 | Inpatient (IN) | payer OTHER ==
--- NOTE | 2018-07-29 16:10 | EDPHY ---
HPI/HX/ROS/PE/MDM Narrative: CHIEF COMPLAINT: Nausea and vomiting HISTORY OF PRESENT ILLNESS: This patient is an anticoagulated (Eliquis) 68 year old male with past medical history significant for CHF, pulmonary hypertension, atrial fibrillation, ventricular tachycardia, all diagnosed in January,. He had a pacer/ defibrillator placed in April with Dr. Benavides, toddler lead teacher. He presents today with a fever and vomiting. He also notes diarrhea. Yesterday, the patient felt well throughout the day and was busy running errands with his . He felt he did not drink enough and began to feel ill overnight. He began vomiting before 4am and threw up in bed which is very unusual for him. He endorses diarrhea. Denies melena or hematochezia. He has felt very weak and becomes lightheaded when he sits up. His measured a fever of 103.2 this afternoon and took him in for evaluation. The patient endorses some difficulty with urinary, denies hematuria. He endorses a mild productive cough. He denies flu- like symptoms including body aches, rhinorrhea. He denies recent international travel. The patient reports he has not taken his antihypertensive medications today, but took his Eliquis and diuretic as prescribed. No chest pain, shortness of breath, headache, pain or swelling in his calves, or other associated symptoms. REVIEW OF SYSTEMS: A comprehensive 10 system review of systems is otherwise negative aside from elements mentioned in the history of present illness and medical decision making. PAST MEDICAL HISTORY: CHF, pulmonary hypertension, atrial fibrillation. Pacer/ defibrillator placed 04/12/[address] Benavides, toddler lead teacher. SOCIAL HISTORY: , at bedside. Lives in [place]. Retired. VITAL SIGNS: Reviewed by me. Temp 37.6 on arrival. The patient has not received antipyretics. Tachycardic to the 120s. GENERAL: Well-developed, well-nourished, reports feeling lightheaded when he sits up. HEENT: Atraumatic. Eyes: No icterus, no injection. Mouth: moist mucous membranes. No erythema or lesions. Neck: supple with no adenopathy. LUNGS: Clear to auscultation bilaterally, no wheezes, rhonchi or rales. CARDIAC: Irregular tachycardia around 110-130. ABDOMEN: Soft, nontender, nondistended, bowel sounds normal. BACK: No CVA tenderness. EXTREMITIES: No trauma. No edema. Range of motion is normal throughout. NEURO: Alert and oriented, grossly nonfocal. SKIN: Warm and dry, no rash. PSYCHIATRIC: Normal mentation, no agitation. Portions of this note were transcribed by a medical insurance clerk. I personally performed a history, physical exam, medical decision making, and confirmed accuracy of information the transcribed note. ED Course: 68 y/o male with recent diagnoses of CHF, pulmonary hypertension, ventricular tachycardia s/p pacer placement in April 2018 presents with nausea, vomiting, weakness and fever. He is tachycardic. Plan for sepsis protocol. Patient states his defibrillator has never gone off. 16:17 POC troponin 0.05. Reviewed laboratory studies. WBC elevated at 14,000. Lactic acid 2.2. CXR negative for pneumonia, however, chest x-ray does demonstrate cardiomegaly with mild volume overload and central venous fullness greater than previous. Tachycardic in 120s. Temperature 37.6 here with history of fever at home. I am concerned that this patient may be presenting with septicemia, however, there is no documented fever here and no clear infectious source other than vomiting and diarrhea. Influenza studies are pending at this time. 16:40 patient does meet criteria for severe sepsis due to elevated lactic acid, elevated white count, and tachycardia the setting of a history of fever[place] [address]. Course was discussed with the cardiology service. Patient has remained afebrile in the emergency department. Recommendations at this time from Cardiology is not to push fluids given his significant risk for volume overload.. Lactic acid may be secondary to poor perfusion due to patient's CHF exacerbation. No antibiotics have been administered at this time. 17:00 Reassessed patient. Discussed laboratory results, plan to admit. 17:03 patient's course discussed with Dr. Stone. Will recheck a lactic acid. Small dose of Lasix administered to address the patient's pulmonary overload. Severe Sepsis/Septic Shock Care Note The patient presents to the ED with nausea and vomiting and history of fever identified as an potential acute infection. The patient did have evidence of end-organ dysfunction and met criteria for severe sepsis. This condition was identified by myself at 1640. The patients vital signs are 112/55, 113, temperature 37.5 degrees, O2 sat 96. The patient has a venous lactic acid performed within 3 hours of the identification of severe sepsis which was found to be 2.2. The patient has blood cultures drawn and received not receive IV antibiotics at this time. There is no clear source identified and patient's primary localizing symptomatology is nausea and vomiting. Fluids at 30 cc per kill were initially ordered on the patient, however, given his severe congestive heart failure I will discuss this fluid administration with Cardiology and they hospitalist service. He may be a candidate to receive 30 cc /kilos over 6 hr. Patient did not have a documented temperature of greater than 38.2 at any point during his emergency department course. MDM: Differential diagnoses for the patient's symptom complex was considered including but not limited to nausea vomiting from gastroenteritis, acute coronary syndrome, pneumonia, urinary tract infection, worsening congestive heart failure, cough, sepsis. - Data Points Imaging Results: Imaging Impressions Chest X-Ray 07/29/18 16:19 Impression: 1. Relatively stable poor inspiration with mild compressive atelectatic changes at the lung bases. 2. Prominence of pulmonary vasculature centrally. This is increased since the prior study. Consider mild fluid overload. 3. Stable moderate accentuation of the anterior kyphosis lower thoracic spine related to anterior wedge compression fractures. Imaging: Discussed imaging studies w/ call or contact centre coach Radiologist Laboratory Results: Laboratory Results 07/29/18 15:58 07/29/18 15:58 07/29/18 07/29/18 07/29/18 17:05 16:40 16:22 WBC RBC Hgb POC Hgb 16.3 gm/dL gm/dL (13.7-17.5) Hct POC Hct 48 % % (40-51) MCV MCH MCHC RDW Plt Count MPV Neut % (Auto) Lymph % (Auto) Faulk % (Auto) Eos % (Auto) Baso % (Auto) Nucleat RBC Rel Count Absolute Neuts (auto) Absolute Lymphs (auto) Absolute Monos (auto) Absolute Eos (auto) Absolute Basos (auto) Absolute Nucleated RBC Immature Gran % Immature Gran # RBC/WBC/PLT Morphology Platelet Estimate PT INR APTT VBG Lactic Acid POC Sodium 134 mEq/L L mEq/L (135-145) Sodium POC Potassium 3.9 mEq/L mEq/L (3.3-5.0) Potassium POC Chloride 96 mEq/L L mEq/L (97-110) Chloride Carbon Dioxide Anion Gap POC BUN 22 mg/dL mg/dL (7-23) BUN Creatinine POC Creatinine 1.5 mg/dL H mg/dL (0.7-1.3) Estimated GFR Glucose POC Glucose 124 mg/dL H mg/dL (70-100) Calcium Total Bilirubin Conjugated Bilirubin Unconjugated Bilirubin AST ALT Alkaline Phosphatase POC Troponin I Troponin I NT-Pro-B Natriuret Pep Total Protein Albumin Lipase Urine Color YELLOW Urine Appearance HAZY Urine pH 6.0 (5.0-7.5) Ur Specific R[place]y 1.019 (1.002-1.030) Urine Protein 2+ H (NEGATIVE) Urine Ketones NEGATIVE (NEGATIVE) Urine Blood 1+ H (NEGATIVE) Urine Nitrate NEGATIVE (NEGATIVE) Urine Bilirubin NEGATIVE (NEGATIVE) Urine Urobilinogen 2.0 EU H EU (0.2-1.0) Ur Leukocyte Esterase NEGATIVE (NEGATIVE) Urine RBC 1-3 /hpf /hpf (0-3) Urine WBC 5-10 /hpf H /hpf (0-3) Ur Epithelial Cells TRACE /lpf /lpf (NONE-1+) Hyaline Casts 1-5 /lpf /lpf (0-1) Urine Mucus 1+ /lpf /lpf (NONE-1+) Urine Glucose NEGATIVE (NEGATIVE) Nasal Influenza A PCR NEGATIVE FOR FLU A (NEGATIVE) Nasal Influenza B PCR NEGATIVE FOR FLU B (NEGATIVE) 07/29/18 07/29/18 07/29/18 16:06 15:58 15:58 WBC RBC Hgb POC Hgb Hct POC Hct MCV MCH MCHC RDW Plt Count MPV Neut % (Auto) Lymph % (Auto) Faulk % (Auto) Eos % (Auto) Baso % (Auto) Nucleat RBC Rel Count Absolute Neuts (auto) Absolute Lymphs (auto) Absolute Monos (auto) Absolute Eos (auto) Absolute Basos (auto) Absolute Nucleated RBC Immature Gran % Immature Gran # RBC/WBC/PLT Morphology Platelet Estimate PT INR APTT VBG Lactic Acid POC Sodium Sodium 131 mEq/L L mEq/L (135-145) POC Potassium Potassium 4.2 mEq/L mEq/L (3.3-5.0) POC Chloride Chloride 96 mEq/L L mEq/L (97-110) Carbon Dioxide 21 mEq/l L mEq/l (22-31) Anion Gap 14 mEq/L mEq/L (6-14) POC BUN BUN 23 mg/dL mg/dL (7-23) Creatinine 1.5 mg/dL H mg/dL (0.7-1.3) POC Creatinine Estimated GFR 46 Glucose 123 mg/dL H mg/dL (70-100) POC Glucose Calcium 8.9 mg/dL mg/dL (8.5-10.4) Total Bilirubin 3.5 mg/dL H mg/dL (0.1-1.4) Conjugated Bilirubin 0.3 mg/dL mg/dL (0.0-0.5) Unconjugated Bilirubin 3.2 mg/dL H mg/dL (0.0-1.1) AST 36 IU/L IU/L (17-59) ALT 29 IU/L IU/L (21-72) Alkaline Phosphatase 68 IU/L IU/L (38-126) POC Troponin I 0.05 ng/mL ng/mL (0.00-0.08) Troponin I 0.058 ng/mL H ng/mL (0.000-0.034) NT-Pro-B Natriuret Pep 99897 pg/mL H pg/mL (0-125) Total Protein 6.7 g/dL g/dL (6.3-8.2) Albumin 3.8 g/dL g/dL (3.5-5.0) Lipase 44 IU/L IU/L (23-300) Urine Color Urine Appearance Urine pH Ur Specific R[place] Urine Protein Urine Ketones Urine Blood Urine Nitrate Urine Bilirubin Urine Urobilinogen Ur Leukocyte Esterase Urine RBC Urine WBC Ur Epithelial Cells Hyaline Casts Urine Mucus Urine Glucose Nasal Influenza A PCR Nasal Influenza B PCR 07/29/18 07/29/18 07/29/18 15:58 15:58 15:30 WBC 14.63 10^3/uL H 10^3/uL (3.80-9.50) RBC 4.85 10^6/uL 10^6/uL (4.40-6.38) Hgb 14.6 g/dL g/dL (13.7-17.5) POC Hgb Hct 43.7 % % (40.0-51.0) POC Hct MCV 90.1 fL fL (81.5-99.8) MCH 30.1 pg pg (27.9-34.1) MCHC 33.4 g/dL g/dL (32.4-36.7) RDW 15.4 % H % (11.5-15.2) Plt Count 120 10^3/uL L 10^3/uL (150-400) MPV 10.6 fL fL (8.7-11.7) Neut % (Auto) 92.3 % H % (39.3-74.2) Lymph % (Auto) 2.7 % L % (15.0-45.0) Faulk % (Auto) 3.6 % L % (4.5-13.0) Eos % (Auto) 0.0 % L % (0.6-7.6) Baso % (Auto) 0.2 % L % (0.3-1.7) Nucleat RBC Rel Count 0.0 % % (0.0-0.2) Absolute Neuts (auto) 13.50 10^3/uL H 10^3/uL (1.70-6.50) Absolute Lymphs (auto) 0.40 10^3/uL L 10^3/uL (1.00-3.00) Absolute Monos (auto) 0.53 10^3/uL 10^3/uL (0.30-0.80) Absolute Eos (auto) 0.00 10^3/uL L 10^3/uL (0.03-0.40) Absolute Basos (auto) 0.03 10^3/uL 10^3/uL (0.02-0.10) Absolute Nucleated RBC 0.00 10^3/uL 10^3/uL (0-0.01) Immature Gran % 1.2 % H % (0.0-1.1) Immature Gran # 0.18 10^3/uL H 10^3/uL (0.00-0.10) RBC/WBC/PLT Morphology TNP Platelet Estimate TNP PT 19.9 SEC H SEC (12.0-15.0) INR 1.68 H (0.83-1.16) APTT 35.8 SEC SEC (23.0-38.0) VBG Lactic Acid 2.2 mmol/L H mmol/L (0.7-2.1) POC Sodium Sodium POC Potassium Potassium POC Chloride Chloride Carbon Dioxide Anion Gap POC BUN BUN Creatinine POC Creatinine Estimated GFR Glucose POC Glucose Calcium Total Bilirubin Conjugated Bilirubin Unconjugated Bilirubin AST ALT Alkaline Phosphatase POC Troponin I Troponin I NT-Pro-B Natriuret Pep Total Protein Albumin Lipase Urine Color Urine Appearance Urine pH Ur Specific Ripley Urine Protein Urine Ketones Urine Blood Urine Nitrate Urine Bilirubin Urine Urobilinogen Ur Leukocyte Esterase Urine RBC Urine WBC Ur Epithelial Cells Hyaline Casts Urine Mucus Urine Glucose Nasal Influenza A PCR Nasal Influenza B PCR Medications Given: Acetaminophen (Tylenol) 650 mg PO Q4HRS PRN PRN Reason: Pain, Mild/Fever, Can Take PO Stop: 01/25/19 18:04 Last Admin: 07/29/18 20:29 Dose: 650 mg Atorvastatin Calcium (Lipitor) 40 mg PO HS LIN Stop: 01/25/19 20:59 Last Admin: 07/29/18 22:25 Dose: 40 mg Meropenem 1 gm/ Sodium (Chloride) 120 mls @ 120 mls/hr IV Q8H LIN PRN Reason: Protocol Stop: 08/28/18 21:14 Last Admin: 07/29/18 21:43 Dose: 120 mls Vancomycin HCl 1.25 gm/ Sodium (Chloride) 250 mls @ 166.667 mls/hr IV Q12H LIN Stop: 08/28/18 21:29 Last Admin: 07/29/18 21:43 Dose: 250 mls Discontinued Medications Furosemide (Lasix Injection) 20 mg IVP ONCE ONE Stop: 07/29/18 17:21 Last Admin: 07/29/18 17:34 Dose: 20 mg Sodium Chloride (Ns) 500 mls @ 1,000 mls/hr IV EDNOW ONE PRN Reason: Protocol Stop: 07/29/18 16:47 Last Admin: 07/29/18 16:34 Dose: 500 mls Sodium Chloride (Ns) 3,100 mls @ 516.6666 mls/hr 30 ml/kg infuse over 6 hr ( 3100 ml) IV EDNOW ONE PRN Reason: Protocol Stop: 07/29/18 22:42 Last Admin: 07/29/18 18:11 Dose: Not Given Point of Care Test Results: Chemistry 07/29/18 07/29/18 16:22 16:06 POC Sodium 134 mEq/L L mEq/L (135-145) POC Potassium 3.9 mEq/L mEq/L (3.3-5.0) POC Chloride 96 mEq/L L mEq/L (97-110) POC BUN 22 mg/dL mg/dL (7-23) POC Creatinine 1.5 mg/dL H mg/dL (0.7-1.3) POC Glucose 124 mg/dL H mg/dL (70-100) POC Troponin I 0.05 ng/mL ng/mL (0.00-0.08) ISTAT H&H 07/29/18 16:22 POC Hgb 16.3 gm/dL gm/dL (13.7-17.5) POC Hct 48 % % (40-51) General Time Seen by Provider: 07/29/18 16:06 Initial Vital Signs: Initial Vital Signs Temperature (C) 37.8 C 07/29/18 15:18 Heart Rate 67 07/29/18 15:18 Respiratory Rate 21 H 07/29/18 15:18 Blood Pressure 119/101 H 07/29/18 15:18 O2 Sat (%) 95 07/29/18 15:18 O2 Delivery Mode Room Air Allergies/Adverse Reactions: Penicillins Allergy (Intermediate, Verified 04/08/18 10:19) Rash Home Medications: Medication Instructions Recorded Apixaban [Eliquis] 5 mg PO BID@,01/26/18 Esomeprazole Mag Trihydrate 40 mg PO DAILY@01/26/18 [Nexium] FLUoxetine [Prozac 10 MG (*)] 10 mg PO DAILY 01/26/18 Ondansetron [Ondansetron Odt] 4 mg PO Q8 PRN 01/26/18 Ranitidine HCl [Zantac] 300 mg PO BIDMEAL 01/26/18 Tamsulosin HCl [Flomax 0.4 MG (*)] 0.4 mg PO DAILY 01/26/18 buPROPion [Wellbutrin 75mg (*)] 75 mg PO DAILY 01/26/18 Aspirin [Aspirin 81mg (*)] 81 mg PO DAILY #30 tab.chew 01/29/18 Atorvastatin Calcium [Lipitor 40 40 mg PO HS #30 tab 01/29/18 mg (*)] Lisinopril [Zestril 2.5 mg (*)] 2.5 mg PO DAILY #30 tab 01/29/18 Cyanocobalamin [Vitamin B12 (*)] 1,000 mcg PO DAILY 04/08/18 Dacono-3 Fatty Acids [Fish Oil 1000 1,000 mg PO DAILY 04/08/18 mg (*)] Carvedilol [Coreg (*)] 6.25 mg PO BIDMEAL #60 tab 04/13/18 Furosemide [Lasix 20 MG (*)] 20 mg PO DAILY #30 tab 04/13/18 Departure - Departure Disposition: [facility] Inpatient Acute Clinical Impression: Tachycardia CHF exacerbation Qualifiers: Heart failure type: unspecified Qualified Code(s): I50.9 - Heart failure, unspecified Fever Qualifiers: Fever type: unspecified Qualified Code(s): R50.9 - Fever, unspecified Vomiting Qualifiers: Vomiting type: unspecified Vomiting Intractability: non-intractable Nausea presence: with nausea Qualified Code(s): R11.2 - Nausea with vomiting, unspecified Condition: Fair Report Scribed for: Sandra Fields Report Scribed by: Marina Hess Date of Report: 07/29/18 Time of Report: 16:13
[2018-07-29] MEDS ORDERED: NS 500 ML IV ONE ×2 (16:18→21:05)
[2018-07-29 16:35] LABS: PLATELET COUNT 120 10^3/uL (150-400)
[2018-07-29 16:42] LABS: INR 1.68 (0.83-1.16); PROTIME(PATIENT) 19.9 SEC (12.0-15.0)
[2018-07-29] MEDS: NS 3,100 ML IV ONE ×2 (16:55→18:11)
[2018-07-29] MEDS ORDERED: FUROSEMIDE 20 MG/2 ML VIAL IVP ONE (17:20)
[2018-07-29] MEDS ORDERED: ONDANSETRON DISINTEGRATING 4 MG TAB PO PRN (18:05)
[2018-07-29] MEDS ORDERED: ONDANSETRON 4 MG/2 ML VIAL IVP PRN (18:05)
[2018-07-29] MEDS: ACETAMINOPHEN 325 MG TAB PO PRN (20:29)
[2018-07-29] MEDS ORDERED: VANCOMYCIN 1.25 GM in NS 250 ML IV SCH (21:30)
[2018-07-29] MEDS: MEROPENEM 1 GM in NS 100 ML IV SCH (21:43)
[2018-07-29] MEDS: ATORVASTATIN CALCIUM 40 MG TAB PO SCH (22:25)
--- NOTE | 2018-07-29 23:06 | CPEKG ---
Test Reason : OPEN Blood Pressure : / mmHG Vent. Rate : 113 BPM Atrial Rate : 119 BPM P-R Int : 162 ms QRS Dur : 119 ms QT Int : 364 ms P-R-T Axes : 079 248 075 degrees QTc Int : 500 ms Ventricular-paced complexes Confirmed by Sandra Fields [id number] on 07/29/2018 11:05:32 PM Referred By: Confirmed By:Sandra Fields
--- NOTE | 2018-07-29 23:37 | PDGENHP ---
History and Physical - Chief Complaint fever - History of Present Illness 68yo M with history of HFrEF 2/2 NICM (LVEF 29% on last check) s/p biventricular ICD, paroxysmal atrial fibrillation, FREDDY, colon cancer s/p partial colectomy presents from home with fever and weakness. Was feeling fine yesterday until last night he became nauseated and vomited in bed. Had one loose stool but no abdominal pain. Was feeling very lethargic and weak but nothing focal. His checked his temperature this morning and it was 103 F. His HR was also up in the 110s when normally it is 60-70. His SBP was 100-110 which is about normal for him. He reports a mild dry cough and some difficulty breathing. Denies chest pain, palpitations, syncope, abdominal pain, leg swelling, orthopnea, urinary symptoms, neck stiffness. Denies shocks from ICD. Per his , he gained 4 pounds (from 222 to 226) since yesterday. He alerted his cardiology office who recommended holding some of his BP meds and then instructed him to come to the hospital. In the ED, he had temperature of 38.3 with WBC 14k and HR in the 120s and irregular. His lactate was 2.2. He was initially given 500mL of normal saline. A BNP came back at 17k and his CXR looked mildly volume overloaded so he was then given 20mg IV lasix after which his lactate went up to 2.5. He was then admitted for further management. Case discussed with ED physician Sandra Fields. Of note, he saw his steward/stewardess Dr Henderson on 05/17 at which time he was doing well. His lisinopril was uptitrated. History Information - Allergies/Home Medication List Allergies/Adverse Reactions: Penicillins Allergy (Intermediate, Verified 04/08/18 10:19) Rash Home Medications: Apixaban [Eliquis] 5 mg PO BID@01/26/18 [Last Taken 07/29/18] Esomeprazole Mag Trihydrate [Nexium] 40 mg PO DAILY@01/26/18 [Last Taken ] FLUoxetine [Prozac 10 MG (*)] 10 mg PO DAILY 01/26/18 [Last Taken 07/29/18] Ondansetron [Ondansetron Odt] 4 mg PO Q8 PRN 01/26/18 [Last Taken Unknown] Ranitidine HCl [Zantac] 300 mg PO BIDMEAL 01/26/18 [Last Taken 07/29/18] Tamsulosin HCl [Flomax 0.4 MG (*)] 0.4 mg PO DAILY 01/26/18 [Last Taken 07/29/18 ] buPROPion [Wellbutrin 75mg (*)] 75 mg PO DAILY 01/26/18 [Last Taken 07/29/18] Cyanocobalamin [Vitamin B12 (*)] 1,000 mcg PO DAILY 04/08/18 [Last Taken ] [place]-3 Fatty Acids [Fish Oil 1000 mg (*)] 1,000 mg PO DAILY 04/08/18 [Last Taken 07/29/18] I have personally reviewed and updated: family history, medical history, social history, surgical history - Past Medical History Additional medical history: HFrEF 2/2 NICM (LVEF 17->29%), paroxysmal atrial fibrillation, FREDDY on PPV, colon cancer s/p partial colectomy, chronic pulmonary hypertension (WHO class 3), depression, GERD, pulmonary nodule, hypotestosteronism - Surgical History Additional surgical history: AICD implantation - Family History Additional family history: No known cardiomyopathy. Father young, likely of heart disease. - Social History Smoking Status: Never smoked Alcohol Use: None Drug Use: None Additional social history: Lives with . Review of Systems Review of Systems: ROS: 10pt was reviewed & negative except for what was stated in HPI & below Physical Exam Physical Exam: Temp Pulse Resp BP Pulse Ox 37.8 C 128 H 22 H 91/50 L 94 07/29/18 20:00 07/29/18 20:00 07/29/18 20:00 07/29/18 20:00 07/29/18 20:00 O2 (L/minute) 2 Constitutional: other (diaphoretic, uncomfortable) Eyes: PERRL, anicteric sclera, EOMI Ears, Nose, Mouth, Throat: moist mucous membranes, hearing normal, ears appear normal, no oral mucosal ulcers Cardiovascular: no murmur, rub, or gallop, irregularly irregular, JVD (up to mid neck with head of bed at 45 degrees), tachycardia, No edema Respiratory: no respiratory distress, reduced air movement (throughout), No expiratory wheeze, No inspiratory crackles Gastrointestinal: normoactive bowel sounds, soft, non-tender abdomen, no palpable masses Genitourinary: no bladder fullness, no bladder tenderness Skin: warm, other (erythema of right second toe with small ulceration at IP joint) Musculoskeletal: full muscle strength, no muscle tenderness, normal joint ROM, no joint effusions Neurologic: AAOx3 Psychiatric: interacting appropriately, not anxious, not encephalopathic, thought process linear Lab Data & Imaging Review 07/29/18 15:58 07/29/18 15:58 WBC 14.63 10^3/uL (3.80-9.50) H 07/29/18 15:58 RBC 4.85 10^6/uL (4.40-6.38) 07/29/18 15:58 Hgb 14.6 g/dL (13.7-17.5) 07/29/18 15:58 POC Hgb 16.3 gm/dL (13.7-17.5) 07/29/18 16:22 Hct 43.7 % (40.0-51.0) 07/29/18 15:58 POC Hct 48 % (40-51) 07/29/18 16:22 MCV 90.1 fL (81.5-99.8) 07/29/18 15:58 MCH 30.1 pg (27.9-34.1) 07/29/18 15:58 MCHC 33.4 g/dL (32.4-36.7) 07/29/18 15:58 RDW 15.4 % (11.5-15.2) H 07/29/18 15:58 Plt Count 120 10^3/uL (150-400) L 07/29/18 15:58 MPV 10.6 fL (8.7-11.7) 07/29/18 15:58 Neut % (Auto) 92.3 % (39.3-74.2) H 07/29/18 15:58 Lymph % (Auto) 2.7 % (15.0-45.0) L 07/29/18 15:58 [place] % (Auto) 3.6 % (4.5-13.0) L 07/29/18 15:58 Eos % (Auto) 0.0 % (0.6-7.6) L 07/29/18 15:58 Baso % (Auto) 0.2 % (0.3-1.7) L 07/29/18 15:58 Nucleat RBC Rel Count 0.0 % (0.0-0.2) 07/29/18 15:58 Absolute Neuts (auto) 13.50 10^3/uL (1.70-6.50) H 07/29/18 15:58 Absolute Lymphs (auto) 0.40 10^3/uL (1.00-3.00) L 07/29/18 15:58 Absolute Monos (auto) 0.53 10^3/uL (0.30-0.80) 07/29/18 15:58 Absolute Eos (auto) 0.00 10^3/uL (0.03-0.40) L 07/29/18 15:58 Absolute Basos (auto) 0.03 10^3/uL (0.02-0.10) 07/29/18 15:58 Absolute Nucleated RBC 0.00 10^3/uL (0-0.01) 07/29/18 15:58 Immature Gran % 1.2 % (0.0-1.1) H 07/29/18 15:58 Immature Gran # 0.18 10^3/uL (0.00-0.10) H 07/29/18 15:58 RBC/WBC/PLT Morphology TNP 07/29/18 15:58 Platelet Estimate TNP 07/29/18 15:58 PT 19.9 SEC (12.0-15.0) H 07/29/18 15:58 INR 1.68 (0.83-1.16) H 07/29/18 15:58 APTT 35.8 SEC (23.0-38.0) 07/29/18 15:58 Puncture Site NONE GIVEN 07/29/18 23:10 Patient Temperature 37.0 DEGREES 07/29/18 23:10 VBG pH 7.40 (7.31-7.42) 07/29/18 23:10 VBG HCO3 21 mEQ/L (22-26) L 07/29/18 23:10 VBG Total CO2 22 mEq/L (21-27) 07/29/18 23:10 VBG O2 Saturation 95 % (65-75) H 07/29/18 23:10 VBG Base Excess -2.8 mEq/L (-2.5-2.5) L 07/29/18 23:10 VBG Lactic Acid 1.5 mmol/L (0.7-2.1) 07/29/18 23:10 Mixed VBG pCO2 34 mmHg (40-44) L 07/29/18 23:10 Mixed VBG pO2 77 mmHG (35-40) H 07/29/18 23:10 POC Sodium 134 mEq/L (135-145) L 07/29/18 16:22 Sodium 131 mEq/L (135-145) L 07/29/18 15:58 POC Potassium 3.9 mEq/L (3.3-5.0) 07/29/18 16:22 Potassium 4.2 mEq/L (3.3-5.0) 07/29/18 15:58 POC Chloride 96 mEq/L (97-110) L 07/29/18 16:22 Chloride 96 mEq/L (97-110) L 07/29/18 15:58 Carbon Dioxide 21 mEq/l (22-31) L 07/29/18 15:58 Anion Gap 14 mEq/L (6-14) 07/29/18 15:58 POC BUN 22 mg/dL (7-23) 07/29/18 16:22 BUN 23 mg/dL (7-23) 07/29/18 15:58 Creatinine 1.5 mg/dL (0.7-1.3) H 07/29/18 15:58 POC Creatinine 1.5 mg/dL (0.7-1.3) H 07/29/18 16:22 Estimated GFR 46 07/29/18 15:58 Glucose 123 mg/dL (70-100) H 07/29/18 15:58 POC Glucose 124 mg/dL (70-100) H 07/29/18 16:22 Calcium 8.9 mg/dL (8.5-10.4) 07/29/18 15:58 Total Bilirubin 3.5 mg/dL (0.1-1.4) H 07/29/18 15:58 Conjugated Bilirubin 0.3 mg/dL (0.0-0.5) 07/29/18 15:58 Unconjugated Bilirubin 3.2 mg/dL (0.0-1.1) H 07/29/18 15:58 AST 36 IU/L (17-59) 07/29/18 15:58 ALT 29 IU/L (21-72) 07/29/18 15:58 Alkaline Phosphatase 68 IU/L (38-126) 07/29/18 15:58 POC Troponin I 0.05 ng/mL (0.00-0.08) 07/29/18 16:06 Troponin I 0.058 ng/mL (0.000-0.034) H 07/29/18 15:58 NT-Pro-B Natriuret Pep 17089 pg/mL (0-125) H 07/29/18 15:58 Total Protein 6.7 g/dL (6.3-8.2) 07/29/18 15:58 Albumin 3.8 g/dL (3.5-5.0) 07/29/18 15:58 Lipase 44 IU/L (23-300) 07/29/18 15:58 Urine Color YELLOW 07/29/18 17:05 Urine Appearance HAZY 07/29/18 17:05 Urine pH 6.0 (5.0-7.5) 07/29/18 17:05 Ur Specific [place] 1.019 (1.002-1.030) 07/29/18 17:05 Urine Protein 2+ (NEGATIVE) H 07/29/18 17:05 Urine Ketones NEGATIVE (NEGATIVE) 07/29/18 17:05 Urine Blood 1+ (NEGATIVE) H 07/29/18 17:05 Urine Nitrate NEGATIVE (NEGATIVE) 07/29/18 17:05 Urine Bilirubin NEGATIVE (NEGATIVE) 07/29/18 17:05 Urine Urobilinogen 2.0 EU (0.2-1.0) H 07/29/18 17:05 Ur Leukocyte Esterase NEGATIVE (NEGATIVE) 07/29/18 17:05 Urine RBC 1-3 /hpf (0-3) 07/29/18 17:05 Urine WBC 5-10 /hpf (0-3) H 07/29/18 17:05 Ur Epithelial Cells TRACE /lpf (NONE-1+) 07/29/18 17:05 Hyaline Casts 1-5 /lpf (0-1) 07/29/18 17:05 Urine Mucus 1+ /lpf (NONE-1+) 07/29/18 17:05 Urine Glucose NEGATIVE (NEGATIVE) 07/29/18 17:05 Nasal Influenza A PCR NEGATIVE FOR FLU A (NEGATIVE) 07/29/18 16:40 Nasal Influenza B PCR NEGATIVE FOR FLU B (NEGATIVE) 07/29/18 16:40 Visualized and Interpreted Chest x-ray results: Yes Visualized and Interpreted imaging results: Yes Interpretation: CXR: low lung volumes, vascular congestion, enlarged heart, device with leads in place, no pleural effusion or infiltrate (interpreted by me ) Visualized and Interpreted EKG results: Yes EKG additional interpertation: ECG: V-paced, irregular, PVC, negative for S[place]ossa criteria Assessment & Plan Assessment: 68yo M with history of HFrEF 2/2 NICM (LVEF 29% on last check) s/p biventricular ICD, paroxysmal atrial fibrillation presents from home with fever and found to be meeting severe sepsis criteria. Plan: #Severe sepsis of unclear source: Fever, tachy, leukocytosis with elevated lactate and renal dysfunction. Has small ulceration with surrounding erythema on right second toe but otherwise exam unrevealing. His procalcitonin is elevated. - s/p 500ml NS with improvement in lactate to 1.5, hold on additional fluids for now - Broad spectrum abx with vancomycin and meropenem (allergy to pcn) - Follow blood cultures, fever curve, WBC #Atrial fibrillation with RVR: Suspect precipitated by infection. BP low but stable. - Holding coreg with tenuous hemodynamics - Continue home apixaban #Acute on chronic systolic CHF: BNP much higher than in past, CXR mildly wet. - Holding lasix, BB, ACEi due to sepsis/BIANCA - Consult cardiology in AM #Acute kidney injury: Cr 1.5 up from 0.9. Suspect prerenal in setting of sepsis. - Monitor after IVF, if not improving will expand evaluation #Acute hypoxemic respiratory insufficiency: On 2-3L NC, likely driven by pulmonary edema. - Monitor respiratory status closely with volume expansion #Troponinemia: Very mild trop elevation that has now down-trended. This was demand mediated. #FREDDY: On CPAP #Depression: Home meds #Colon cancer: s/p partial colectomy Diet: cardiac VTE ppx: therapeutic anticoagulation Code: full per discussion with patient this evening Dispo: Admit under inpatient status
[2018-07-30] MEDS: ACETAMINOPHEN 325 MG TAB PO PRN ×4 (00:32→20:04)
[2018-07-30] MEDS ORDERED: AMIODARONE HCL 100 ML IV ONE (01:05)
--- NOTE | 2018-07-30 01:59 | HOSPPROG ---
Hospitalist Progress Note Assessment/Plan: Hospitalist night float note Paged by RN reporting that patient had developed episode of fever, rigors and subsequent hypoxia with hypotension and AFib with RVR to the 170s. Patient admitted with severe sepsis of unknown source. He had was started on broad-spectrum antibiotics. Cultures are pending. Patient did receive 800 mL of IV fluid including completion of a 500 cc bolus NS. Arrive to patient's bedside after his episode of rigors and he appeared to be more comfortable. Blood pressures systolic improved from the 80s to 90s. Stat EKG and chest x-ray were obtained prior to my arrival. EKG showing AFib with RVR and V pacer spikes. Motion artifact is present. Patient's respiratory status and blood pressures currently slowly improving. 150 mg bolus dosing of amiodarone has been ordered to assist with rate control will monitor his blood pressures and vital signs closely before consideration for a drip. Patient not a candidate for beta-fortino or diltiazem at this time in setting of hypotension and CHF exacerbation. Updated the patient on his current status as well as further discussion with the RN a given patient's symptoms have improved after his regular episode and blood pressures are slowly improving that patient can remain on PCU floor. Low threshold for transfer to the unit. Given severity of patient's illness if his blood pressures further decline may knee need to consider placement on pressor support. At this time a feel patient's blood pressures are increasing adequately to remain on the floor. Review of chart shows that patient's lactate has normalized. 35 min critical care time. Objective: Vital Signs Temp Pulse Resp BP Pulse Ox 38.8 C H 152 H 20 82/61 L 94 07/30/18 00:26 07/30/18 00:26 07/30/18 00:26 07/30/18 00:26 07/30/18 00:26 07/28/18 07/29/18 07/30/18 05:59 05:59 05:59 Intake Total 1200 Output Total 200 Balance 1000 PT 19.9 SEC (12.0-15.0) H 07/29/18 15:58 INR 1.68 (0.83-1.16) H 07/29/18 15:58 ICD10 Worksheet Patient Problems: Problems Problem Status Onset CHF exacerbation Acute Fever Acute Tachycardia Acute Vomiting Acute Bradycardia Acute Congestive heart failure Acute Hypotension Acute Knee arthropathy Acute
[2018-07-30] MEDS: MEROPENEM 1 GM in NS 100 ML IV SCH (04:56)
[2018-07-30] MEDS: FLUoxetine 10 MG CAP PO SCH (08:32)
[2018-07-30] MEDS: PANTOPRAZOLE SODIUM 40 MG TAB PO SCH (08:32)
[2018-07-30] MEDS: TAMSULOSIN HCL 0.4 MG CAP PO SCH (08:32)
[2018-07-30] MEDS: buPROPion 75 MG TAB PO SCH (08:32)
--- NOTE | 2018-07-30 08:49 | ASMTLACE ---
CAITLIN Acuity / Level of Answers: Yes Care: Did the patient have an inpatient admission? Comorbidities - select Answers: Congestive heart failure all that apply Opioid dependence / Chronic pain Other Notes: HTN; AFib; GERD # of Emergency department Answers: 3-4 visits in the last 6 months Social determinants Answers: Mental health diagnosis (anxiety, depression, pers onality disorders, etc.) Score: 16 Date Signed: 07/30/2018 08:48 AM Electronically Signed By:Frances Ren
--- NOTE | 2018-07-30 08:53 | HOSPPROG ---
Hospitalist Progress Note Assessment/Plan: # severe sepsis (leukocytosis, fever, tachycardia with BIANCA d/t bacteremia) - ongoing physiology - will place PICC; i am concerned he will decompensate # MSSA bacteremia - possible skin source;l concerning that he has an AICD - ID consult - vanc stopped - check echo # sCHF, acute on chronic, EF 20% s/p BiV AICD - holding BB, dilia-i at this time d/t sepsis - fluid status tenuous # a-fib with RVR s/p amiodarone bolus - holding BB at this time - cont eliquis # BIANCA d/t sepsis - better today # colon ca s/p partial colectomy # deps - home meds patient remains critically ill d/t bacteremia and underlying comorbidities with ongoing sepsis physiology; 40 mins CC time in addition to time spent earlier Subjective: visible rigors, quite uncomfortable Objective: Vital Signs Temp Pulse Resp BP Pulse Ox 37.0 C 87 15 95/55 L 91 L 07/30/18 07:27 07/30/18 07:27 07/30/18 07:27 07/30/18 07:27 07/30/18 07:27 Laboratory Results 07/30/18 03:50 07/30/18 03:50 07/29/18 07/30/18 07/31/18 05:59 05:59 05:59 Intake Total 2840 Output Total 200 Balance 2640 PT 19.9 SEC (12.0-15.0) H 07/29/18 15:58 INR 1.68 (0.83-1.16) H 07/29/18 15:58 - Physical Exam Constitutional: uncomfortable Cardiovascular: irregularly irregular, tachycardia Respiratory: no respiratory distress, No expiratory wheeze, No inspiratory crackles Gastrointestinal: soft, non-tender abdomen, No guarding, No rebound, No distension Skin: other (small ulcer on R toe with some surrpunding erythema; possible splinter hemorrhage) Neurologic: AAOx3 ICD10 Worksheet Patient Problems: Problems Problem Status Onset Knee arthropathy Acute Congestive heart failure Acute Hypotension Acute Bradycardia Acute CHF exacerbation Acute Fever Acute Vomiting Acute Tachycardia Acute
[2018-07-30] MEDS ORDERED: ALTEPLASE 2 MG VIAL IVP PRN (08:56)
[2018-07-30] MEDS ORDERED: ENOXAPARIN 40 MG/0.4 ML SYR SC SCH (09:00)
[2018-07-30] MEDS ORDERED: ASPIRIN 81 MG CHEWABLE TAB PO SCH (09:00)
--- NOTE | 2018-07-30 09:26 | PDMN ---
Medical Necessity Medical necessity: MCG: M160 sepsis and other febrile illness without focal infection A-3 days: Severe sepsis with fever, tachycardia, leukocytosis, elevated lactate and renal dysfunction ( Cr. up to 1.5) . also with afib with RVR, acute on chronic systolic CHF, acute hypoemic resp. insuff. O2 3-4 L NC. MSSA bacteremia, ID consult pend., PMH colon Ca. S/p partial colectomy-- anticipate > 2MN ongoing med nec care,
--- NOTE | 2018-07-30 10:15 | ASMTCMCOM ---
CM Note CM Note Notes: Pt is a 68 y/o man admitted for vomiting, tachycardia, worsening CHF and a fever. PT has been ordered and awaiting recommendations. ID has been consulted. Needs are TBD at this time. PT has a supportive . CM to follow. Plan: TBD Date Signed: 07/30/2018 10:14 AM Electronically Signed By:DION Calix
--- NOTE | 2018-07-30 11:18 | GCON ---
INFECTIOUS DISEASE CONSULTATION DATE OF CONSULTATION: 07/30/2018 REFERRING PHYSICIAN: Arvin Rangel MD REASON FOR CONSULTATION: MSSA bacteremia in the place of recent AICD placement. HISTORY OF PRESENT ILLNESS: A 68-year-old male who recently was identified to have class 2-3 congestive heart failure, chronic pulmonary hypertension, and atrial fibrillation, who underwent biventricular ICD placement 04/12/2018. The patient had been generally doing well, and earlier this week, he was raking leaves and when he was raking leaves he rubbed his right 2nd toe. The day prior to admission, patient was generally feeling well and actually went to his Medicare "well check" and had fasting lipids drawn as well as a chemistry, which showed a normal creatinine of 1.1. Upon questioning, patient does admit to an occasional dry cough for the last week or two, and he did have a headache the day prior to admission. On the day of admission, the patient developed increasing shortness of breath, rigors, and he vomited in bed and subsequently fell. It was also noted that he had a 4 pounds weight gain from 222 to 226. He developed a fever to 103 and presented to the emergency room at 1600. In the emergency room, patient was found to be febrile, tachycardic, and with a mild leukocytosis. Initially, he was treated with IV Lasix due to weight gain. Blood cultures were collected and became positive overnight with 2 sets growing MSSA. The patient was started on IV meropenem and vancomycin based on blood culture results. The patient's notes that he looks significantly better today, but the patient describes ongoing rigors. PAST MEDICAL HISTORY: 1. Atrial fibrillation. 2. Systolic CHF 2-3. 3. Pulmonary hypertension. 4. Chronic renal insufficiency. 5. Colon cancer. 6. Gastroesophageal reflux disease. 7. Hyperlipidemia. 8. Hypertension. 9. Obstructive sleep apnea. 10. Pulmonary nodule. Notably patient has worked at [employer] until 2002 and had a stable 7 mm right upper lobe subpleural nodule without change. Possible exposure to uranium and beryllium followed at [facility]. PAST SURGICAL HISTORY: Colectomy, TURP, vasectomy, and biventricular ICD placement 04/12/2018. MEDICATIONS: The patient was started on meropenem 1 g IV q.8 and vancomycin 1.25 q.12. He is also on anticoagulation with Eliquis. No immune suppressant medicines. ALLERGIES: To penicillin, which causes breathing problems and rash which happened in July of 2006. FAMILY HISTORY: Positive for Alzheimer's, pneumonia, liver disease. SOCIAL HISTORY: The patient drinks alcohol 3-4 times a week. No illicits. He is . Former tobacco. REVIEW OF SYSTEMS: A complete 10-point review of systems was performed and is negative except as mentioned in the HPI. The patient has had 2 loose stools today but no further vomiting. PHYSICAL EXAM: VITAL SIGNS: T-max is 38.8, T-current 37.0, BP 95/55, heart rate 87, respiratory rate 15, saturation 91% on room air and 98% on 2 L Oxymizer. GENERAL: This is a very pleasant male, lying flat in bed, in no distress. HEENT: Pupils are reactive bilaterally. No conjunctival hemorrhages. Oropharynx is slightly dry. Fair dentition. NECK: Supple. CARDIOVASCULAR: Very distant heart sounds. Faint systolic and diastolic murmur. At the time of my exam, seemed fairly regular. CHEST: Barrel chested. Decreased breath sounds throughout. No wheezes or crackles. Over the patient's left pocket is without swelling or warmth. There is a purplish discoloration laterally that is not fluctuant. ABDOMEN: Soft, nontender. Bowel sounds are present. : No [place]. EXTREMITIES: No edema. No joint swelling. SKIN: Patient had pinkness consistent with rubbing of his right 2nd toe. No fluctuance. He also had a spot on his left toe that patient states is chronic. Otherwise, no peripheral stigmata of endocarditis were noted. NEUROLOGIC: He is alert and oriented x4. Moving all 4 extremities equally. He was conversational. LABORATORY DATA: White count on admission 14.6, platelets of 120. White count today 7.4 with platelets of 72. Creatinine 1.5 to 1.3. IMAGING: Chest x-ray was reviewed by me with low lung volumes. No focal infiltrate with AICD in place in the left chest wall with wires noted. He has an enlarged cardiomediastinal silhouette. ASSESSMENT AND PLAN: This is a 68-year-old male with class 2-3 congestive heart failure with biventricular implantable cardioverter-defibrillator placed 04/12/2018, who presents with sepsis. Subsequently found to have a methicillin- sensitive Staphylococcus aureus bacteremia. Of concern recent biventricular implantable cardioverter-defibrillator placement. Assessment 1. MSSA bacteremia concern for endocarditis and possible association with defibrillator leads. Possible portal of entry right 2nd toe. 2. Thrombocytopenia likely due to infection 3. Acute renal failure due to infection, now resolved 4. Sepsis now resolved 5. Underlying significant reaction to penicillin Recommendations 1. Discontinue meropenem and vancomycin. 2. Start cefazolin 2 g IV q.8. The patient reports in the past having cephalosporins with tolerance. Warnings were given regarding cross reactivity to the patient and his . 3. Will repeat blood cultures in 48 hours of antibiotics. 4. We will start with transthoracic echocardiogram. Likely need to also perform transesophageal echocardiogram to fully understand extent of disease. This was discussed extensively with the patient and his at the bedside regarding potential for endocarditis and hardware involvement associated with bacteremia and potential need for additional imaging such as CT scans. 5. Due to penicillin allergy, patient cannot receive nafcillin. 6. Infectious Disease will continue to follow this patient. Time was 75 minutes, greater than 50% of the time spent in education and counseling of the patient and his at bedside as described above, and coordination of care with other services such as Cardiology and Hospitalist. /[id number]/MODL MTDD
[2018-07-30] MEDS ORDERED: NS 1,000 ML IV ONE (11:37)
[2018-07-30] MEDS: APIXABAN 5 MG TAB PO SCH ×2 (11:48→20:05)
[2018-07-30] MEDS: ceFAZolin 2 GM/DEXTROSE 100 ML IV SCH ×3 (12:00→22:43)
--- NOTE | 2018-07-30 12:09 | ECHO ---
[email or web address] [address] [address] Main: [phone] Fax: Transthoracic Echocardiogram Name: SANDY GALLARDO MR#: [id number] Study Date: 07/30/2018 Study Time: 10:30 AM Date of : 1950 Age: 68 year(s) Height: 172.7 cm (68 in.) Weight: 102.51 kg (226 lb.) BSA: 2.15 m2 Gender: Male Examination: Echo Indication: Fever unknown origin, CHF, hypoxia, Defibillator Image Quality: Contrast: Requested by: Lilliam Keller BP: 102 mmHg/68 mmHg Heart Rate: Rhythm: Pacemaker rhythm Indication: Fever unknown origin, CHF, hypoxia, Defibillator Procedure Staff Tongue Presser: Hussein Hartman RDCS Reading Physician: Johny Jones MD Requesting Provider: Conclusions: Moderately to severely dilated left ventricle. Moderately reduced systolic LV function. EF is 32 %. The left atrium is mildly dilated. Mild mitral valve regurgitation is present. No mitral stenosis is present. There is no significant aortic valve regurgitation. No aortic valve stenosis is present. Trivial to mild tricuspid valve regurgitation. , compared to the previous exam of 04/11/18 there has been no significant change.. Measurements: Chambers Valvular Assessment AV/MV Valvular Assessment TV/PV Normal Normal Normal Name Value Range Name Value Range Name Value Range IVSd (2D): 0.8 cm (0.6 cm-1.1 AV Vmax: 1.28 m/s (1 m/s-1.7 PV Vmax: 0.91 m/s (0.6 m/s-0.9 cm) m/s) m/s) LVDd (2D): 6.4 cm (4.2 cm-5.9 AV maxP mmHg ( - ) PV PGmax: 3 mmHg ( - ) cm) LVOT Vmax: 0.62 m/s (0.7 m/s-1.1 LVDs (2D): 5.4 cm (2.1 cm-4 m/s) cm) MV E Vmax: 0.59 m/s ( - ) LVPWd (2D): 1.0 cm (0.6 cm-1 MV A Vmax: 0.90 m/s ( - ) cm) MV E/A: 0.66 ( - ) LVEF (BP): 32 % (>=55 %) Continued Measurements: Chambers Valvular Assessment AV/MV Name Value Name Value Patient: SANDY GALLARDO Study Date: 07/30/2018 Page 1 of 2 10:30 AM LADs Lon.9 cm MV E' Septal: 0.05 m/s LA Area: 27.8 cm2 MV E/E' Septal: 12.10 LA Volume: 80 ml MV E/E' Lateral: 12.30 LA Volume Index: 37.2 ml/m2 Findings: Left Ventricle: Moderately to severely dilated left ventricle. No LV hypertrophy. Moderately reduced systolic LV function. EF is 32 %. Diastolic dysfunction is present. . Right Ventricle: Mildly dilated right ventricle. Normal RV function. Left Atrium: The left atrium is mildly dilated. Right Atrium: The right atrium is mildly dilated. Mitral Valve: The mitral valve is normal in appearance and function. Mild mitral valve regurgitation is present. No mitral stenosis is present. Aortic Valve: The aortic valve is normal in appearance and function. There is no significant aortic valve regurgitation. No aortic valve stenosis is present. Tricuspid Valve: The tricuspid valve is normal in appearance and function. Trivial to mild tricuspid valve regurgitation. The pulmonary artery pressure is normal. Pulmonic Valve: The pulmonic valve is normal in appearance and function. Aorta: The aorta is normal. Exam Comments: , compared to the previous exam of 04/11/18 there has been no significant change.. (No Signature Object) Patient: SANDY GALLARDO Study Date: 07/30/2018 Page 2 of 2 10:30 AM [id number]
--- NOTE | 2018-07-30 13:58 | PDANEPAE ---
ANE History of Present Illness Sepsis with concern of heart valve vegetation ANE Past Medical History - Cardiovascular History Hx Hypertension: Yes Hx Arrhythmias: Yes Hx Chest Pain: No Hx Coronary Artery / Peripheral Vascular Disease: No Hx CHF / Valvular Disease: Yes Hx Palpitations: Yes - Pulmonary History Hx COPD: No Hx Asthma/Reactive Airway Disease: No Hx Recent Upper Respiratory Infection: Yes Hx Oxygen in Use at Home: Yes O2 in Use at Home (L/minute): 4 Hx Sleep Apnea: Yes Pulmonary History Comment: manuel dx - BIPAP- instructed to bring to hospital - Neurologic History Hx Cerebrovascular Accident: No Hx Seizures: No Hx Dementia: No - Endocrine History Hx Diabetes: No Endocrine History Comment: type 2 well controlled with diet and exercise - Renal History Hx Renal Disorders: Yes Renal History Comment: hx of turp. vasectomy - Liver History Hx Hepatic Disorders: No - Neurological & Psychiatric Hx Hx Neurological and Psychiatric Disorders: Yes Neurological / Psychiatric History Comment: depression- BUPROPIONE - Cancer History Hx Cancer: Yes Cancer History Comment: COLON CA - Congenital Disorder History Hx Congenital Disorders: No - GI History Hx Gastrointestinal Disorders: Yes Gastrointestinal History Comment: GERD. COLON CA IN PAST. barretts esophagus - Other Health History Other Health History: NEG - Chronic Pain History Chronic Pain: Yes (bilateral knees) - Surgical History Prior Surgeries: 09/19/14 right tka. turp. vasectomy. COLON RESECTION FOR CA 1996 ANE Review of Systems Review of Systems: ANE Patient History - Allergies Allergies/Adverse Reactions: Penicillins Allergy (Intermediate, Verified 04/08/18 10:19) Rash - Home Medications Home medications: home medication list seen and reviewed Home Medications: Apixaban [Eliquis] 5 mg PO BID@,01/26/18 [Last Taken 07/29/18] Esomeprazole Mag Trihydrate [Nexium] 40 mg PO DAILY@01/26/18 [Last Taken ] FLUoxetine [Prozac 10 MG (*)] 10 mg PO DAILY 01/26/18 [Last Taken 07/29/18] Ondansetron [Ondansetron Odt] 4 mg PO Q8 PRN 01/26/18 [Last Taken Unknown] Ranitidine HCl [Zantac] 300 mg PO BIDMEAL 01/26/18 [Last Taken 07/29/18] Tamsulosin HCl [Flomax 0.4 MG (*)] 0.4 mg PO DAILY 01/26/18 [Last Taken 07/29/18 ] buPROPion [Wellbutrin 75mg (*)] 75 mg PO DAILY 01/26/18 [Last Taken 07/29/18] Cyanocobalamin [Vitamin B12 (*)] 1,000 mcg PO DAILY 04/08/18 [Last Taken ] [place]-3 Fatty Acids [Fish Oil 1000 mg (*)] 1,000 mg PO DAILY 04/08/18 [Last Taken 07/29/18] - NPO status NPO Status: no food or drink >8 hours - Smoking Hx Smoking Status: Never smoked - Alcohol Use Alcohol Use: None - Family Anes Hx Family Hx Anesthesia Complications: NEG ANE Labs/Vital Signs - Labs Result Diagrams: 07/30/18 03:50 07/30/18 03:50 - Vital Signs Blood Pressure: 106/68 Heart Rate: 105 Respiratory Rate: 14 O2 Sat (%): 93 Height: 172.72 cm Weight: 102.6 kg ANE Physical Exam - Airway Neck exam: decreased ROM Mallampati Score: Class 2 Mouth exam: poor dentition, dentures - Pulmonary Pulmonary: no respiratory distress - Cardiovascular Cardiovascular: regular rate and rhythym, tachycardia - ASA Status ASA Status: III ANE Anesthesia Plan Anesthesia Plan: MAC (vs brief IV GA)
--- NOTE | 2018-07-30 14:01 | PDHPUP ---
History & Physical Update H&P update statement: This history and physical update is based on an assessment of the patient which was completed after admission or registration (within 24 hours), but prior to the surgery/procedure. H&P update: no change in patient's condition since H&P completed
[2018-07-30] MEDS ORDERED: LIDOCAINE 2% 2 ML INJ ONE (14:13)
[2018-07-30] MEDS ORDERED: PROPOFOL 200 MG/20 ML VIAL ONE (14:13)
--- NOTE | 2018-07-30 15:33 | ECHO ---
[email or web address] [address] [address] Main: [phone] Fax: Transesophageal Echocardiography Name: SANDY GALLARDO MR#: [id number] Study Date: 07/30/2018 Study Time: 01:52 PM Date of : 1950 Age: 68 year(s) Height: ( ) Weight: ( ) BSA: Gender: Male Examination: Indication: Staph Image Quality: Contrast: Requested by: Cyndi Patel Heart Rate: Rhythm: BP: / Procedure Staff Aerosol Line Operator: Hussein Hartman RDCS Reading Physician: Johny Jones MD Requesting Provider: MINNA Exam Details Conclusions: The ejection fraction is estimated to be 40-45 %. There is a pacemaker lead noted in the right ventricle. There is no obvious vegetation on any of the pacer leads.. Mild mitral valve regurgitation is present. There is no mitral valve vegetation. The aortic valve is tri-leaflet. There is an aortic valve vegetation. The tricuspid valve is normal in appearance and function. No pericardial effusion. no obvious source of infection or vegetations Measurements: Chambers Valvular Assessment AV/MV Valvular Assessment TV/PV Normal Normal Normal Name Value Range Name Value Range Name Value Range EF Range: 40-45 % Additional Measurements: Findings: The ejection fraction is estimated to be 40-45 %. Right Ventricle: There is a pacemaker lead noted in the right ventricle. There is no obvious vegetation on any of the Patient: SANDY GALLARDO Study Date: 07/30/2018 Page 1 of 2 01:52 PM pacer leads.. Mitral Valve: Mild mitral valve regurgitation is present. There is no mitral valve vegetation. Aortic Valve: The aortic valve is tri-leaflet. There is an aortic valve vegetation. Tricuspid Valve: The tricuspid valve is normal in appearance and function. Pericardium: No pericardial effusion. l1n (No Signature Object) Patient: SANDY GALLARDO Study Date: 07/30/2018 Page 2 of 2 01:52 PM [id number]
--- NOTE | 2018-07-30 16:35 | GCON ---
CARDIOLOGY CONSULTATION DATE OF CONSULTATION: 07/30/2018 PRIMARY CARE PHYSICIAN: Mattie Wan. PRIMARY ENGINEERING TECHNICAL SPECIALIST: Dr. Avery Henderson. We were asked by Dr. Rangel of [facility] to evaluate the patient for his systolic CHF and cu rrent bacteremia to rule out endocarditis. HISTORY OF PRESENT ILLNESS: The patient is a 68-year-old male with a past medical history including nonischemic cardiomyopathy with an ejection fraction of 17%, up to 30% to 35% on recent echo, BiV ICD , PAF, VF, FREDDY on BiPAP, previous colon cancer, status post partial colectomy. He has a history of n ormal coronary arteries based on January 2018 cardiac catheterization. He has at least moderate pulmon valerie hypertension based on right heart catheterization. He reports he had been feeling well up until yesterday. He noted some pain in his right 2nd toe where he has a hammertoe. He may have had some r ub from his shoe there. Yesterday evening, he vomited once, and then noted that he had an elevated t emperature up to 103 degrees Fahrenheit. His heart rates were also elevated, and he has possibly had a couple of pounds of weight gain. In the emergency department, his temperature was 38.3. He had a n elevated white count, and his heart rate was in the 120s. On EKG, he had sinus rhythm with a V-pac ed rhythm. He had blood cultures drawn, which showed MSSA bacteremia. Currently, source is unknown but is suspected to be possibly from the lesion on his 2nd toe. Currently, [facility], and he is post transesophageal echocardiogram. On this study, he is not found to have any significant vegetations. He is somewhat somnolent through the interview, but he denies any recent chest pains, palpitations, P ND, orthopnea, presyncope, syncope, or firings from his ICD. His notes he has been coughing a l ittle bit, but this has been a dry cough. His energy has been doing fairly well up until this fever. PAST MEDICAL HISTORY: 1. PAF. 2. Systolic CHF. 3. Chambers's esophagus. 4. Chronic kidney disease. 5. History of colon cancer. 6. Gilbert's syndrome. 7. Dyslipidemia. 8. FREDDY on BiPAP. 9. VF seen on previous monitoring. PAST SURGICAL HISTORY: Colectomy, TURP, and vasectomy. SOCIAL HISTORY: He reports occasional alcohol. He is . His is present in the room. He is a former smoker. OUTPATIENT MEDICATIONS: Include Aldactone, aspirin, atorvastatin, bupropion, carvedilol, Eliquis, fl uoxetine, furosemide, lisinopril, Nexium, omega-3 fatty acids, ranitidine, tamsulosin, Zofran, silden afil, and testosterone pellets. ALLERGIES: Penicillins. FAMILY HISTORY: Alzheimer's, heart failure, and pneumonia. REVIEW OF SYSTEMS: As per HPI, a 10-point review of systems is obtained and is negative, except for what is dictated. PHYSICAL EXAMINATION: VITAL SIGNS: BP of 106/68, heart rate of 105, respirations 14, O2 saturation 93% on room air, temp of 98.2. GENERAL: He is a very pleasant male in no apparent distress. HEENT: Normocephalic, atraumatic. His eyes are without scleral icterus. Mucous membranes are somewhat dr y. HEART: Regular rate and rhythm, with somewhat distant heart sounds. LUNGS: Clear bilaterally. ABDOMEN: Soft, nontender, nondistended, with bowel sounds present. : No Lombardi present. SKIN: Warm and dry. Left pectoral region was closely examined. There is no evidence of fluctuance over hi s ICD site. There is mild bruising just below his incision, but the incision is well healed. There is no edema present. PSYCH: Normal mood and affect for given situation. NEURO: No focal deficits d etected. LABORATORY DATA: BMP with sodium 136, potassium 3.5, chloride 104, CO2 20, BUN 26, creatinine 1.3, g lucose 146. Troponin 0.052. NT-proBNP of 17,200. CBC with WBC 7.47, hemoglobin 13.5, hematocrit 40 .9, and platelet count of 72. Urinalysis with some WBCs present. Transthoracic echocardiogram shows EF of 32%, mildly dilated left atrium, mild MR. MINNA has been done but is pending dictation. Per re port, there was no vegetation present on valves nor on RV lead. A 12-lead ECG personally interpreted shows sinus rhythm with a V-paced complex. Telemetry reviewed. I spoke with Dr. Rangel and Dr. Jones about patient's care. IMPRESSION AND PLAN: The patient is a 68-year-old male who presents with fever and was found to have methicillin-susceptible Staphylococcus aureus bacteremia. 1. Methicillin-susceptible Staphylococcus aureus bacteremia/sepsis. We have cautioned about fluid b oluses given his congestive heart failure and elevated brain natriuretic peptide. Currently, he real ly appears euvolemic. This brain natriuretic peptide may be somehow related to his current sepsis pi cture. We will hold his Lasix therapy at this time. 2. Systolic congestive heart failure. He has been having minimal symptoms suggestive of NYHA functi onal class 1-2 symptoms. He is on appropriate medical management with lisinopril and carvedilol. We agree to these being held in the setting of sepsis and hypotension. These should be resumed as he r ecovers from his septicemia. 3. Implantable cardioverter defibrillator implantation. There is no evidence of RV lead endocarditi s. On his last remote check, which was last month, there is no evidence of any arrhythmias present. He will be continued on telemetry monitoring in the inpatient setting. We will follow along in praneeth ent's care. /[id number]/MODL
[2018-07-30] MEDS: ATORVASTATIN CALCIUM 40 MG TAB PO SCH (20:05)
[2018-07-30] MEDS: FAMOTIDINE 20 MG TAB PO SCH (20:06)
[2018-07-31] MEDS: ACETAMINOPHEN 325 MG TAB PO PRN ×3 (03:08→18:28)
[2018-07-31 03:51] LABS: PLATELET COUNT 50 10^3/uL (150-400)
[2018-07-31] MEDS: PANTOPRAZOLE SODIUM 40 MG TAB PO SCH (06:13)
[2018-07-31] MEDS: APIXABAN 5 MG TAB PO SCH (06:13)
[2018-07-31] MEDS: ceFAZolin 2 GM/DEXTROSE 100 ML IV SCH ×3 (06:13→22:08)
[2018-07-31] MEDS ORDERED: NS 1,000 ML IV SCH (08:30)
--- NOTE | 2018-07-31 08:42 | HOSPPROG ---
Hospitalist Progress Note Assessment/Plan: # severe sepsis (leukocytosis, fever, tachycardia with BIANCA d/t bacteremia) - ongoing physiology - picc placed yesterday, will need to be changed at some point # MSSA bacteremia - possible skin source - MINNA neg for vegetations (has an AICD) - neck pain today - check CT c-spine (no MRI with AICD) # sCHF, acute on chronic, EF 20% s/p BiV AICD - EF up to 40% - hold BB, dilia with hypotension # a-fib with RVR s/p amiodarone bolus - intermittently tach yovernight - hold eliquis - hold BB with sepsis # thrombocytopenia - d/t sepsis; hold eliquis and asa for now # BIANCA d/t sepsis - better today # colon ca s/p partial colectomy # depr - home meds Subjective: neck pain started yesterday; had rigors overnight; Objective: Vital Signs Temp Pulse Resp BP Pulse Ox 36.7 C 82 15 101/56 L 100 07/31/18 07:22 07/31/18 07:22 07/31/18 07:22 07/31/18 07:22 07/31/18 07:22 Microbiology 07/30/18 06:54 Respiratory Panel (PCR) - Final Nasal, Sinus - Swab No Organism Detected Laboratory Results 07/31/18 03:40 07/31/18 03:40 07/30/18 07/31/18 08/01/18 05:59 05:59 05:59 Intake Total 2840 1510 Output Total 200 700 Balance 2640 810 PT 19.9 SEC (12.0-15.0) H 07/29/18 15:58 INR 1.68 (0.83-1.16) H 07/29/18 15:58 chart reviewed MINNA reviewed - Physical Exam Constitutional: no apparent distress Cardiovascular: regular rate and rhythym, no murmur, rub, or gallop, other (L aicd site with ecchymosis) Respiratory: no respiratory distress, no rales or rhonchi Gastrointestinal: soft, non-tender abdomen, no palpable masses, No guarding, No rebound, No distension Musculoskeletal: other (neck limited ROM looking upward, no meningismus; TTL over L lateras aspect) ICD10 Worksheet Patient Problems: Problems Problem Status Onset Knee arthropathy Acute Congestive heart failure Acute Hypotension Acute Bradycardia Acute CHF exacerbation Acute Fever Acute Vomiting Acute Tachycardia Acute
[2018-07-31] MEDS ORDERED: IOPAMIDOL (ISOVUE-300) 100 ML BTL ONE (09:22)
--- NOTE | 2018-07-31 10:21 | PDCARPN ---
Cardiology Progress Note Assessment/Plan: Assessment: 1. MSSA bacteremia likely related to toe infection 2. Cardiomyopathy 3. Atrial fibrillation Plan: Clinically improving. MINNA did not show any obvious vegetation on tricuspid valve or leads. I personally reviewed the images, ventricular lead was well visualized though atrial aspect of leads was not. Appreciate ID input and care. Agree with holding Eliquis while patient is thrombocytopenic. Reviewed with patient and , there is some risk of stroke with this approach. Holding beta-blockers and Ja inhibitors for now, will resume and 24-48 hours as tolerated. 07/31/18 10:21 Subjective: Feels well, no cx, and RN present in room Reviewed/Discussed With: family Time Spent with Patient: greater than 25 minutes Time Spent with Patient: Greater than 25 minutes spent on this patients care, greater than 50% of time spent counseling, educating, and coordinating care regarding the above mentioned plan. Objective: Vital Signs (8 Hrs) Temp Pulse Resp BP Pulse Ox 07/31/18 07:22 36.7 C 82 15 101/56 L 100 07/31/18 06:10 36.7 C 89 07/31/18 05:05 39.1 C H 07/31/18 03:50 117 H 20 122/66 H 97 Intake/Output (24 Hrs) 07/29/18 07/30/18 07/31/18 11:59 11:59 11:59 Intake Total 2840 1510 Output Total 200 700 Balance 2640 810 Intake: Oral (ml) 550 1100 IV Infused (ml) 2290 410 Amiodarone HCl 100 ml @ 100 600 mls/hr IV ONCE ONE Rx #:[id number] Meropenem 1 gm In Ns 100 240 ml @ 120 mls/hr IV Q8H [facility] Rx#:[id number] Ns 500 ml @ 1500 mls/hr 500 IV ONCE ONE Rx#: [id number] Vancomycin 1.25 gm In Ns 250 250 ml @ 166.667 mls/hr IV Q12H [facility] Rx#: [id number] ceFAZolin 2 GM/DEXTROSE 410 100 ml @ 200 mls/hr IV Q8H[facility] Rx#:[id number] Output: Urine (ml) 200 700 Bedside Commode 200 200 Toilet 500 Other: Weight 102.6 kg 102.6 kg Intake Quantity Yes Sufficient Number of Voids Bedside Commode 1 Toilet 1 1 Number of Stools Bedside Commode 1 Result Diagrams: 07/31/18 03:40 07/31/18 03:40 Cardiac Labs: Cardiac Lab Results (72 Hrs) 07/29/18 23:10 Troponin I 0.052 H Telemetry: [employer] ICD10 Worksheet Patient Problems: Problems Problem Status Onset Knee arthropathy Acute Congestive heart failure Acute Hypotension Acute Bradycardia Acute CHF exacerbation Acute Fever Acute Vomiting Acute Tachycardia Acute
[2018-07-31] MEDS: buPROPion 75 MG TAB PO SCH (10:33)
[2018-07-31] MEDS: TAMSULOSIN HCL 0.4 MG CAP PO SCH (10:33)
[2018-07-31] MEDS: FLUoxetine 10 MG CAP PO SCH (10:34)
--- NOTE | 2018-07-31 16:01 | PCMIDPN ---
Assessment/Plan: # MSSA bacteremia possible source right toe. MINNA Is negative for vegetation. --will repeat blood cultures tomorrow 6am --if remain negative would exchange PICC line on Thursday and discharged on 6 weeks of IV cefazolin 6 g IV continuous infusion. Would treat for 6 weeks due to presence of cardiac hardware (there are 2 small studies that show decrease chances of hardware infection with prolonged IV antibiotics) --case discussed w Dr. Benavides --care coordinated with case management. I discussed process of receiving home IV antibiotics #PCN allergy: tolerating cephalosporin Meds cefazolin 2gm IV q6h #2 micro 07/29 blood cx (11/13) MSSA Subjective: patient c/o intermittent rigors no SOB no pain of BiV pocket Objective: Vital Signs Temp Pulse Resp BP Pulse Ox 36.1 C 108 H 17 89/69 L 95 07/31/18 15:27 07/31/18 15:27 07/31/18 15:27 07/31/18 15:27 07/31/18 15:27 Microbiology 07/30/18 06:54 Respiratory Panel (PCR) - Final Nasal, Sinus - Swab No Organism Detected Laboratory Results 07/31/18 03:40 07/31/18 03:40 07/30/18 07/31/18 08/01/18 05:59 05:59 05:59 Intake Total 2840 1510 Output Total 200 700 Balance 2640 810 - Physical Exam General Appearance: alert, no apparent distress, non-toxic Respiratory: other (decrease bs L base), No accessory muscle use, No crackles, No wheezing Neck: supple Cardiac/Chest: irregularly irregular Extremities: other (inflammation of R 2nd toe decreased, no tenderness), No pedal edema Peripheral Pulses: 2+: dorsalis-pedis (R), dorsalis-pedis (L) Abdomen: non-tender, soft Male Genitalia: No [place] Skin: No rash Neuro/Psych: no motor/sensory deficits, alert, normal mood/affect, oriented x 3 - Line/s RUE PICC Lines: No drainage, No erythema - Time Spent With Patient Time Spent with Patient: greater than 35 minutes (reviewed IV antibiotics, home IVtherapy, PICC line w patient and ) Time Spent with Patient: Greater than 35 minutes spent on this patients care, greater than 50% of time spent counseling, educating, and coordinating care regarding the above mentioned plan. ICD10 Worksheet Patient Problems: Problems Problem Status Onset CHF exacerbation Acute Fever Acute Tachycardia Acute Vomiting Acute Bradycardia Acute Congestive heart failure Acute Hypotension Acute Knee arthropathy Acute
--- NOTE | 2018-07-31 16:09 | PDIAF ---
- Diagnosis Diagnosis: MSSA bacteremia with BiVICD in place Code Status: Full Code - Medication Management Discharge Medications: Medications to Continue on Transfer Apixaban [Eliquis] 5 mg PO BID@01/26/18 [Last Taken 07/29/18] Esomeprazole Mag Trihydrate [Nexium] 40 mg PO DAILY@07 01/26/18 [Last Taken ] FLUoxetine [Prozac 10 MG (*)] 10 mg PO DAILY 01/26/18 [Last Taken 07/29/18] Ondansetron [Ondansetron Odt] 4 mg PO Q8 PRN 01/26/18 [Last Taken Unknown] Ranitidine HCl [Zantac] 300 mg PO BIDMEAL 01/26/18 [Last Taken 07/29/18] Tamsulosin HCl [Flomax 0.4 MG (*)] 0.4 mg PO DAILY 01/26/18 [Last Taken 07/29/18 ] buPROPion [Wellbutrin 75mg (*)] 75 mg PO DAILY 01/26/18 [Last Taken 07/29/18] Aspirin [Aspirin 81mg (*)] 81 mg PO DAILY #30 tab.chew 01/29/18 [Last Taken ] Atorvastatin Calcium [Lipitor 40 mg (*)] 40 mg PO HS #30 tab 01/29/18 [Last Taken 07/28/18] Lisinopril [Zestril 2.5 mg (*)] 2.5 mg PO DAILY #30 tab 01/29/18 [Last Taken ] Cyanocobalamin [Vitamin B12 (*)] 1,000 mcg PO DAILY 04/08/18 [Last Taken ] [place]-3 Fatty Acids [Fish Oil 1000 mg (*)] 1,000 mg PO DAILY 04/08/18 [Last Taken 07/29/18] Carvedilol [Coreg (*)] 6.25 mg PO BIDMEAL #60 tab 04/13/18 [Last Taken 07/28/18] Furosemide [Lasix 20 MG (*)] 20 mg PO DAILY #30 tab 04/13/18 [Last Taken ] Client Advocate Antibiotics: cefazolin 6gm IV daily [facility] Antibiotic Stop Date: 09/13/18 Discharge Medications: Refer to the Discharge Home Medication list for PRN reason. PICC Care - Routine: Yes - Orders Services needed: Home Care, Registered Nurse Home Care Face to Face: I certify that this patient was under my care and that I had the required [id number] encounter meeting the encounter requirements on the discharge day. My findings support the fact that the patient is homebound as defined in Home Care Face to Face Continued: CMS Chapter 7 Medicare Benefits Manual 30.1.1 , The condition of the patient is such that there exists a normal inability to leave home and consequently, leaving home would require a considerable and taxing effort. Isolation Type: None - Labs/Radiology CBC w/diff Date: 08/09/18 (Weekly Thursday) CMP Date: 08/09/18 (Weekly Thursday) Call or Fax Lab and Imaging Results to: Marisabel Guan MD [facility] at fax [phone] - Follow Up Care Current Providers and Referrals: Mattie Wan, TRAVEL REGISTERED NURSE PACU [Primary Care Provider] - As per Instructions Marisabel Guan MD [Medical Doctor] - 08/11/18 1:00 pm
[2018-07-31] MEDS: FAMOTIDINE 20 MG TAB PO SCH (18:28)
[2018-07-31] MEDS: ATORVASTATIN CALCIUM 40 MG TAB PO SCH (21:59)
[2018-07-31] MEDS: oxyCODONE IR 5 MG TAB PO PRN (22:00)
[2018-08-01] MEDS: oxyCODONE IR 5 MG TAB PO PRN (04:24)
[2018-08-01 04:53] LABS: PLATELET COUNT 54 10^3/uL (150-400)
[2018-08-01 05:01] LABS: INR 1.05 (0.83-1.16); PROTIME(PATIENT) 13.9 SEC (12.0-15.0)
[2018-08-01] MEDS: PANTOPRAZOLE SODIUM 40 MG TAB PO SCH (06:18)
[2018-08-01] MEDS: ceFAZolin 2 GM/DEXTROSE 100 ML IV SCH ×3 (06:18→21:45)
--- NOTE | 2018-08-01 08:52 | ASMTCMCOM ---
CM Note CM Note Notes: Spoke with ID as patient has positive blood cultures and requires at home infusions for IV antibiotic via picc. Referral placed to [facility]. Will also place referral for HHC RN from [facility]. Likely to dc on Thursday per ID. CM to follow. Plan: Home with MS and HHC. Date Signed: 08/01/2018 08:51 AM Electronically Signed By:Magi Wisdom RN
[2018-08-01] MEDS: TAMSULOSIN HCL 0.4 MG CAP PO SCH (09:20)
[2018-08-01] MEDS: buPROPion 75 MG TAB PO SCH (09:20)
[2018-08-01] MEDS: FLUoxetine 10 MG CAP PO SCH (09:20)
--- NOTE | 2018-08-01 09:39 | PDCARPN ---
Cardiology Progress Note Assessment/Plan: Assessment: 1. MSSA bacteremia likely related to toe infection 2. Cardiomyopathy 3. Atrial fibrillation 4. Thrombocytopenia Plan: Clinically improving, long-term IV antibiotics per Infectious Disease specialist Dr. Marisabel Guan. MINNA reviewed, no vegetations noted on aortic, mitral or tricuspid valve or on the ventricular aspect of the lead. Atrial aspect of the leads were not well visualized. Pacemaker pocket does not show any evidence of infection. Clinically has improved with LV ejection fraction improving post biventricular pacing. Holding Eliquis for now given thrombocytopenia, platelet count 17456 at this time. If continues to improve, restart Eliquis in the next 24 hr or so. 08/01/18 09:38 Subjective: Did have fever with rigors x1 last night, feels were currently, reports no symptoms. Time Spent with Patient: greater than 25 minutes Time Spent with Patient: Greater than 25 minutes spent on this patients care, greater than 50% of time spent counseling, educating, and coordinating care regarding the above mentioned plan. Objective: Vital Signs (8 Hrs) Temp Pulse Resp BP Pulse Ox 08/01/18 08:00 36.9 C 91 17 106/55 L 92 08/01/18 04:00 36.5 C 65 18 110/66 100 Intake/Output (24 Hrs) 07/30/18 07/31/18 08/01/18 11:59 11:59 11:59 Intake Total 2840 1510 1450 Output Total 200 700 Balance 2640 810 1450 Intake: Oral (ml) 550 1100 850 IV Infused (ml) 2290 410 600 Amiodarone HCl 100 ml @ 100 600 mls/hr IV ONCE ONE Rx #:[id number] Meropenem 1 gm In Ns 100 240 ml @ 120 mls/hr IV Q8H LIN Rx#:[id number] Ns 1,000 ml @ 100 mls/hr 300 IV CONT LIN Rx#: [id number] Ns 500 ml @ 1500 mls/hr 500 IV ONCE ONE Rx#: [id number] Vancomycin 1.25 gm In Ns 250 250 ml @ 166.667 mls/hr IV Q12H LIN Rx#: [id number] ceFAZolin 2 GM/DEXTROSE 410 300 100 ml @ 200 mls/hr IV Q8HRS LIN Rx#:[id number] Output: Urine (ml) 200 700 Bedside Commode 200 200 Toilet 500 Other: Weight 102.6 kg 102.6 kg 103.3 kg Intake Quantity Yes Sufficient Number of Voids Bedside Commode 1 Toilet 1 1 1 Number of Stools Bedside Commode 1 Result Diagrams: 08/01/18 04:15 08/01/18 04:15 Cardiac Labs: Cardiac Lab Results (72 Hrs) 07/29/18 23:10 Troponin I 0.052 H Telemetry: A sensed V paced Echocardiogram: Review transesophageal echocardiogram personally. My partner Dr. Rob also reviewed it. No aortic, tricuspid or mitral valve vegetations noted. ICD10 Worksheet Patient Problems: Problems Problem Status Onset Knee arthropathy Acute Congestive heart failure Acute Hypotension Acute Bradycardia Acute CHF exacerbation Acute Fever Acute Vomiting Acute Tachycardia Acute
--- NOTE | 2018-08-01 10:55 | PCMIDPN ---
Assessment/Plan: # MSSA bacteremia possible source right toe. MINNA Is negative for vegetation. Neck pain, CT neck w contrast negative for infectious process. Pacer pocket appearance stable --awaiting clearance of blood cx, repeated this AM --if persistent blood cx will have to eval for another nidus of infection --exchanged to single lumen PICC 08/03 if blood cultures negative #PCN allergy: tolerating cephalosporin #Thrombocytopenia: due to infection, stable today Meds cefazolin 2gm IV q6h #3 micro 07/29 blood cx (2/2) MSSA 08/01 blood cx (2) pending Care coordinated with Dr. Benavides Subjective: c/o neck pain - pain localized over L trap today Objective: Vital Signs Temp Pulse Resp BP Pulse Ox 36.9 C 91 17 106/55 L 92 08/01/18 08:00 08/01/18 08:00 08/01/18 08:00 08/01/18 08:00 08/01/18 08:00 Laboratory Results 08/01/18 04:15 08/01/18 04:15 07/31/18 08/01/18 08/02/18 05:59 05:59 05:59 Intake Total 1510 1450 Output Total 700 Balance 810 1450 - Physical Exam General Appearance: alert, no apparent distress Neck: supple, other Cardiac/Chest: regular rate, rhythm, No systolic murmur Extremities: No pedal edema Abdomen: normal bowel sounds, non-tender, soft Skin: other (Ecchymosis over lateral portion of pacer pocket, no fluctuance), No rash Neuro/Psych: alert, normal mood/affect, oriented x 3 - Line/s RUE PICC Lines: No drainage, No erythema - Time Spent With Patient Time Spent with Patient: greater than 35 minutes Time Spent with Patient: Greater than 35 minutes spent on this patients care, greater than 50% of time spent counseling, educating, and coordinating care regarding the above mentioned plan. ICD10 Worksheet Patient Problems: Problems Problem Status Onset CHF exacerbation Acute Fever Acute Tachycardia Acute Vomiting Acute Bradycardia Acute Congestive heart failure Acute Hypotension Acute Knee arthropathy Acute
--- NOTE | 2018-08-01 11:31 | HOSPPROG ---
Hospitalist Progress Note Assessment/Plan: # severe sepsis (leukocytosis, fever, tachycardia with BIANCA d/t bacteremia) - physiology improving - picc placed yesterday, will need to be changed soon # MSSA bacteremia - possible skin source - MINNA neg for vegetations (has an AICD) - surveillance cultures pending. follow # sCHF, acute on chronic, EF 20% s/p BiV AICD - EF up to 40% - hold BB, dilia with hypotension # a-fib with RVR s/p amiodarone bolus - hold eliquis - hold BB with sepsis # thrombocytopenia - d/t sepsis; hold eliquis and asa for now # BIANCA d/t sepsis - better today # colon ca s/p partial colectomy # depr - home meds Subjective: rigors last night, but not as severe; back pain improved Objective: Vital Signs Temp Pulse Resp BP Pulse Ox 36.9 C 91 17 106/55 L 92 08/01/18 08:00 08/01/18 08:00 08/01/18 08:00 08/01/18 08:00 08/01/18 08:00 Laboratory Results 08/01/18 04:15 08/01/18 04:15 07/31/18 08/01/18 08/02/18 05:59 05:59 05:59 Intake Total 1510 1450 Output Total 700 Balance 810 1450 PT 13.9 SEC (12.0-15.0) 08/01/18 04:15 INR 1.05 (0.83-1.16) 08/01/18 04:15 chart reviewed high risk with staph a bacteremia - Physical Exam Constitutional: no apparent distress, appears nourished, other (sitting in chair ) Cardiovascular: no murmur, rub, or gallop, irregularly irregular Respiratory: no respiratory distress, no rales or rhonchi Gastrointestinal: soft, non-tender abdomen, no palpable masses, No rebound, No distension ICD10 Worksheet Patient Problems: Problems Problem Status Onset Knee arthropathy Acute Congestive heart failure Acute Hypotension Acute Bradycardia Acute CHF exacerbation Acute Fever Acute Vomiting Acute Tachycardia Acute
[2018-08-01] MEDS: LIDOCAINE 4%/MENTHOL 1% PATCH TD SCH (14:58)
[2018-08-01] MEDS: FAMOTIDINE 20 MG TAB PO SCH (18:01)
[2018-08-01] MEDS: ATORVASTATIN CALCIUM 40 MG TAB PO SCH (20:35)
[2018-08-01] MEDS: PATCH REMOVAL 1 EA PATCH TD SCH (21:51)
[2018-08-01] MEDS: ACETAMINOPHEN 325 MG TAB PO PRN (22:57)
[2018-08-02 05:55] LABS: PLATELET COUNT 66 10^3/uL (150-400)
[2018-08-02] MEDS: ceFAZolin 2 GM/DEXTROSE 100 ML IV SCH ×3 (05:55→21:42)
[2018-08-02] MEDS ORDERED: POTASSIUM CL 20 MEQ/15 ML UDCUP PO ONE (06:36)
[2018-08-02] MEDS: PANTOPRAZOLE SODIUM 40 MG TAB PO SCH (07:21)
[2018-08-02] MEDS: TAMSULOSIN HCL 0.4 MG CAP PO SCH (08:28)
[2018-08-02] MEDS: buPROPion 75 MG TAB PO SCH (08:28)
[2018-08-02] MEDS: FLUoxetine 10 MG CAP PO SCH (08:28)
[2018-08-02] MEDS: LIDOCAINE 4%/MENTHOL 1% PATCH TD SCH (08:28)
--- NOTE | 2018-08-02 13:23 | PCMIDPN ---
Assessment/Plan: Assessment: MSSA bacteremia from an unknown source. Repeat blood cultures from yesterday are negative so far. Patient is resting comfortably in his hospital bed today. is present in the room. He has not had fevers for almost 48 hr or more. Plan to continue the IV cefazolin at present dose. He is prepared for home IV antibiotic. These will be managed by Dr. Guan as an outpatient. Plan: 1. Continue IV Ancef. 2. Follow up on repeat blood cultures. 3. Follow fever curve and clinical signs. 08/02/18 13:21 Subjective: Patient was sleeping upon entry to the room. is at bedside. Patient awakened during the visit. He has no new complaint. Still with a slight stiff neck. No fevers for over 48 hr. Objective: Cefazolin # 4 Vital Signs Temp Pulse Resp BP Pulse Ox 36.7 C 95 10 L 107/62 91 L 08/02/18 12:00 08/02/18 12:00 08/02/18 12:00 08/02/18 12:00 08/02/18 12:00 Laboratory Results 08/02/18 05:35 08/02/18 05:35 08/01/18 08/02/18 08/03/18 05:59 05:59 05:59 Intake Total 1450 400 Output Total 400 Balance 1450 0 - Physical Exam General Appearance: WD/WN, alert, no apparent distress, non-toxic Respiratory: lungs clear, normal breath sounds, No respiratory distress Cardiac/Chest: regular rate, rhythm, No tachycardia Skin: normal color, warm/dry, No rash Neuro/Psych: alert, normal mood/affect, oriented x 3 ICD10 Worksheet Patient Problems: Problems Problem Status Onset CHF exacerbation Acute Fever Acute Tachycardia Acute Vomiting Acute Bradycardia Acute Congestive heart failure Acute Hypotension Acute Knee arthropathy Acute
--- NOTE | 2018-08-02 15:04 | HOSPPROG ---
Hospitalist Progress Note Assessment/Plan: # severe sepsis (leukocytosis, fever, tachycardia with BIANCA d/t bacteremia) - physiology and fever curve improving - picc placed yesterday, likely change tomorrow if cultures negative # MSSA bacteremia - possible skin source - MINNA neg for vegetations (has an AICD) - surveillance cultures pending, follow # sCHF, acute on chronic, EF 20% s/p BiV AICD - EF up to 40% - hold dilia - restart low dose coreg today # ectopy - restart low dose BB today # a-fib with RVR s/p amiodarone bolus - hold eliquis - restart low dose coreg today # thrombocytopenia - d/t sepsis - restart eliquis if plts continue to improve # BIANCA d/t sepsis - better today # colon ca s/p partial colectomy # depr - home meds Subjective: neck pain beter with lidoderm patch Objective: Vital Signs Temp Pulse Resp BP Pulse Ox 36.7 C 95 10 L 107/62 91 L 08/02/18 12:00 08/02/18 12:00 08/02/18 12:00 08/02/18 12:00 08/02/18 12:00 Laboratory Results 08/02/18 05:35 08/02/18 05:35 08/01/18 08/02/18 08/03/18 05:59 05:59 05:59 Intake Total 1450 400 Output Total 400 Balance 1450 0 PT 13.9 SEC (12.0-15.0) 08/01/18 04:15 INR 1.05 (0.83-1.16) 08/01/18 04:15 tele reviewed, much ectopy chart reviewed including Dr Fountain's note - Physical Exam Constitutional: no apparent distress, appears nourished Cardiovascular: no murmur, rub, or gallop, irregularly irregular Respiratory: no respiratory distress, no rales or rhonchi, clear to auscultation Gastrointestinal: soft, non-tender abdomen, no palpable masses, No guarding, No rebound, No distension ICD10 Worksheet Patient Problems: Problems Problem Status Onset Knee arthropathy Acute Congestive heart failure Acute Hypotension Acute Bradycardia Acute CHF exacerbation Acute Fever Acute Vomiting Acute Tachycardia Acute
[2018-08-02] MEDS: FAMOTIDINE 20 MG TAB PO SCH (17:42)
[2018-08-02] MEDS: CARVEDILOL 3.125 MG TAB PO SCH (17:42)
[2018-08-02] MEDS: ATORVASTATIN CALCIUM 40 MG TAB PO SCH (21:41)
[2018-08-02] MEDS: PATCH REMOVAL 1 EA PATCH TD SCH (21:45)
[2018-08-02] MEDS: oxyCODONE IR 5 MG TAB PO PRN (22:24)
[2018-08-03 04:54] LABS: PLATELET COUNT 92 10^3/uL (150-400)
[2018-08-03] MEDS: ceFAZolin 2 GM/DEXTROSE 100 ML IV SCH ×2 (06:27→13:51)
[2018-08-03] MEDS: PANTOPRAZOLE SODIUM 40 MG TAB PO SCH (06:27)
[2018-08-03] MEDS: CARVEDILOL 3.125 MG TAB PO SCH (07:34)
[2018-08-03] MEDS ORDERED: MAGNESIUM HYDROXIDE 30 ML UDCUP PO PRN (07:53)
[2018-08-03] MEDS ORDERED: BISACODYL 10 MG SUPP PR PRN (07:53)
[2018-08-03] MEDS ORDERED: POLYETHYLENE GLYCOL 3350 17 GM PKT PO PRN (07:53)
[2018-08-03] MEDS ORDERED: LACTULOSE 20 GM/30 ML UDCUP PO PRN (07:53)
[2018-08-03] MEDS: LIDOCAINE 4%/MENTHOL 1% PATCH TD SCH (08:54)
[2018-08-03] MEDS: TAMSULOSIN HCL 0.4 MG CAP PO SCH (08:55)
[2018-08-03] MEDS: buPROPion 75 MG TAB PO SCH (08:55)
[2018-08-03] MEDS ORDERED: SENNOSIDES/DOCUSATE SODIUM TAB PO SCH (09:00)
[2018-08-03] MEDS: FLUoxetine 10 MG CAP PO SCH (10:21)
--- NOTE | 2018-08-03 12:53 | PCMIDPN ---
Assessment/Plan: # MSSA bacteremia possible source right toe. MINNA Is negative for vegetation. Neck pain, CT neck w contrast negative for infectious process. Pacer pocket appearance stable, bruise healing. Longer course of treatment to prevent cardiac HWR infection --continue cefazolin high dose, Stop Date: 09/13/18 --follow up w ID already in dc paperwork --change to single lumen picc today #PCN allergy: tolerating cephalosporin #Thrombocytopenia: due to infection, stable today Meds cefazolin 2gm IV q6h #5 micro 07/29 blood cx (2/2) MSSA 08/01 blood cx (2) NGTD Subjective: neck pain better Objective: Vital Signs Temp Pulse Resp BP Pulse Ox 36.7 C 89 16 108/58 L 93 08/03/18 12:46 08/03/18 12:46 08/03/18 12:46 08/03/18 12:46 08/03/18 12:46 Laboratory Results 08/03/18 04:30 08/03/18 04:30 08/02/18 08/03/18 08/04/18 05:59 05:59 05:59 Intake Total 400 1075 Output Total 400 Balance 0 1075 - Physical Exam General Appearance: alert EENT: scleral icterus, No thrush Respiratory: lungs clear, No accessory muscle use Neck: supple Cardiac/Chest: systolic murmur, irregularly irregular Extremities: No pedal edema Abdomen: non-tender, soft Skin: No rash, No embolic lesions Neuro/Psych: alert, normal mood/affect, oriented x 3 - Line/s RUE PICC Lines: No drainage, No erythema - Time Spent With Patient Time Spent with Patient: greater than 35 minutes Time Spent with Patient: Greater than 35 minutes spent on this patients care, greater than 50% of time spent counseling, educating, and coordinating care regarding the above mentioned plan. ICD10 Worksheet Patient Problems: Problems Problem Status Onset CHF exacerbation Acute Fever Acute Tachycardia Acute Vomiting Acute Bradycardia Acute Congestive heart failure Acute Hypotension Acute Knee arthropathy Acute
[2018-08-03 15:59] VITALS: BP 129/68
--- NOTE | 2018-08-03 16:05 | ASMTCMCOM ---
CM Note CM Note Notes: Pt's pic line has been changed and wound care continues to follow. CM will follow. D/C Plan: [facility] for RN Date Signed: 08/03/2018 04:05 PM Electronically Signed By:Donna Medeiros
--- NOTE | 2018-08-03 17:55 | PDDCSUM ---
Discharge Summary Discharge Summary: Date of Admission: 07/29/2018 Date of Discharge: 08/03/2018 Consultants: infectious disease, cardiology Procedures/Studies: TTE, MINNA, PICC line insertion x2, CT neck Discharge Diagnoses: 1. MSSA bacteremia likely from toe infection 2. Severe sepsis 3. Acute kidney injury 4. Lactic acidosis 5. Atrial fibrillation 6. Chronic systolic CHF s/p BiV AICD 7. Thrombocytopenia 8. Neck pain 9. H/o colon cancer s/p partial colectomy Brief Hospital Course: 68yo M with chronic systolic CHF with LVEF 20% prior to BiV AICD placement this summer, atrial fibrillation on AC presented with fever and rigors found to have severe sepsis related to MSSA bacteremia. The source of infection was a bit unclear but thought to be due to right toe infection. A MINNA was negative for valvular or ICD lead vegetations. ID was consulted who recommended treatment for 6 weeks (thru 09/13/18) to prevent hardware infection with IV cefazolin. A new PICC line was placed on day of discharge. He was thrombocytopenic thought related to infection so anticoagulation initially held; this was improving at discharge and his eliquis was restarted. We are continuing to hold his aspirin as he was having mild epistaxis. Of note, his LVEF was found to be much improved post biventricular pacing and is now around 40%. His lasix and lisinopril have been held due to hypotension until follow up. Lastly, he was having neck pain on admission; a contrasted CT of his neck was negative for epidural abscess or diskitis (unable to get MRI with hardware). Medications: Please refer to EMR for complete list. Changes this hospitalization include addition of IV cefazolin and discontinuation of furosemide, lisinopril, and aspirin. Follow Up Plan: 1. Appt with Dr Guan on 08/11, continue IV cefazolin through 09/13 2. Clinic appt with PCP and cardiology in next 1-2 weeks. Address re-starting lasix, lisinopril, aspirin Physical Exam: Vitals reviewed, afebrile and normotensive. Alert and oriented without neurologic deficit. Irregularly irregular with normal heart rate, lungs clear, abdomen soft, no peripheral edema.
--- NOTE | 2018-08-04 15:44 | ASDISCHSUM ---
Discharge Information Plan Status:Home with Home Health Medically Cleared to Leave:08/03/2018 Discharge Date:08/03/2018 06:33 PM D/C Disposition: ADT D/C Disposition:Home, Routine, Self-Care Projected Discharge Date:08/03/2018 11:00 AM Transportation at D/C: Discharge Delay Reason: Follow-Up Date:08/03/2018 11:00 AM Discharge Slot: Final Diagnosis: Placement Information Referral Type:Home Infusion Referral ID:[id number] Provider Name:[facility] Address 1:[address] Address 2: City:[place] Selection Factors: State:[place] Referral Type:*Home Health Care Services Referral ID:[id number] Provider Name:[facility] Address 1:[address] , [address] Address 2: City:[place] Selection Factors: State:[place] Patient Contact Information Contact Name:MICHELL Relationship: Address:[address] City:[place] Alternate Phone: State/Zip Code:[place] [address] Email: Financial Information Financial Class:Medicare Advantage Plans Primary Plan Desc:Tyba Primary Plan Number:[id number] Secondary Plan Desc: Secondary Plan Number: Assessment Information LACE LACE Acuity / Level of Answers: Yes Care: Did the patient have an inpatient admission? Comorbidities - select Answers: Congestive heart failure all that apply Opioid dependence / Chronic pain Other Notes: HTN; AFib; GERD # of Emergency department Answers: 3-4 visits in the last 6 months Social determinants Answers: Mental health diagnosis (anxiety, depression, pers onality disorders, etc.) Score: 16 Date Signed: 07/30/2018 08:48 AM Electronically Signed By:Frances Ren [facility] CM Progress Note CM Note CM Note Notes: Pt is a 68 y/o man admitted for vomiting, tachycardia, worsening CHF and a fever. PT has been ordered and awaiting recommendations. ID has been consulted. Needs are TBD at this time. PT has a supportive . CM to follow. Plan: TBD Date Signed: 07/30/2018 10:14 AM Electronically Signed By:DION Calix [facility] CM Progress Note CM Note CM Note Notes: Spoke with ID as patient has positive blood cultures and requires at home infusions for IV antibiotic via picc. Referral placed to [facility]. Will also place referral for HHC RN from [facility]. Likely to dc on Thursday per ID. CM to follow. Plan: Home with [place] and [facility]. Date Signed: 08/01/2018 08:51 AM Electronically Signed By:Magi Wisdom RN [facility] CM Progress Note CM Note CM Note Notes: Pt's pic line has been changed and wound care continues to follow. CM will follow. D/C Plan: [facility] for RN Date Signed: 08/03/2018 04:05 PM Electronically Signed By:Donna Medeiros Intervention Information
== END 2018-08-03 18:33 | disposition home or self-care (01) | DRG 872 ==
LOC: F2W 18:10
PROVIDERS: ADMIT Internal Medicine; ATTEND Internal Medicine
PROC: 02HV33Z Insertion of Infusion Device into Superior Vena Cava, Percutaneous Approach (ICD-10-PCS; principal; 2018-07-30)
PROC: 02HV33Z Insertion of Infusion Device into Superior Vena Cava, Percutaneous Approach (ICD-10-PCS; 2018-08-03)
DX: A41.01 Sepsis due to Methicillin susceptible Staphylococcus aureus (principal); R65.20 Severe sepsis without septic shock; L08.9 Local infection of the skin and subcutaneous tissue, unspecified; I50.22 Chronic systolic (congestive) heart failure; N17.9 Acute kidney failure, unspecified; I48.0 Paroxysmal atrial fibrillation; D69.6 Thrombocytopenia, unspecified; E87.2 Acidosis; M20.41 Other hammer toe(s) (acquired), right foot; G47.33 Obstructive sleep apnea (adult) (pediatric); E78.5 Hyperlipidemia, unspecified; K21.9 Gastro-esophageal reflux disease without esophagitis; R91.1 Solitary pulmonary nodule; Z79.01 Long term (current) use of anticoagulants; Z85.038 Personal history of other malignant neoplasm of large intestine; Z95.810 Presence of automatic (implantable) cardiac defibrillator
CPT/HCPCS: 82435-PO; 82565-PO; 82947-PO; 84132-PO; 84295-PO; 84484-PO; 84520-PO; 85014-PO; 96374; 97116-GP; 97140-GP; 97161-GP; C1751; G8978-GP-CI; G8978-GP-CJ; G8979-GP-CI; G8980-GP-CI; J0282; J0690; J1940; J2185; J2704; J3370; Q9967